=== PATIENT | female | born 1995 | race Caucasian/White ===

== ENCOUNTER → 2017-03-16 | Outpatient (CLI) | payer OTHER ==
--- NOTE | 2017-03-16 09:14 | US ---
EXAMINATION TYPE: US OB >= 14 wk fetus DATE OF EXAM: 03/16/2017 COMPARISON: None CLINICAL HISTORY: Z34.8 encounter for super of pt smokes fetus abd measures wnl, but starting to fall off TECHNIQUE: Transabdominal (TA) GESTATIONAL AGE / DATING Physician Established: (34 weeks/3 days) EDC: 04/24/2017 Dates by LMP: (34 weeks/3 days) EDC: 04/24/2017 Dates by First Scan: No previous this is first scan Dates by Current Scan: (33 weeks/2 days) EDC: 05/02/2017 SURVEY IUP: Single PLACENTA: Posterior PREVIA: Low Lying LAZARO: 16 cm Normal CERVICAL LENGTH (transabdominal: norm > 3.0cm): 4.8 cm BIOMETRY PRESENTATION: Vertex LIE: Longitudinal BPD: 8.5 cm 34 weeks / 2 days HC: 30.6 cm 34 weeks / 0 days AC: 28.9 cm 33 weeks / 0 days FL: 6.4 cm 33 weeks / 2 days ESTIMATED WEIGHT IN GRAMS: 2157 grams ESTIMATED WEIGHT IN LBS/OZS: 4 lbs. 12 oz. WEIGHT PERCENTAGE BASED ON ESTABLISHED DATES: 16% HC/AC: 1.1 Normal FL/AC: 22.3 Normal HEART RATE: 138 bpm RHYTHM: Normal survey was limited. IMPRESSION: Single viable intrauterine corresponding to ultrasound age 33 weeks 2 days with estimated d ate of delivery 05/02/2017. Limited survey.
== END | disposition home or self-care (01) ==
LOC: RADUSWWP 08:23
PROVIDERS: ATTEND Obstetrics & Gynecology
DX: Z34.80 Encounter for supervision of other normal pregnancy, unspecified trimester (principal); Z3A.33 33 weeks gestation of pregnancy
CPT/HCPCS: 76805

== ENCOUNTER → 2018-04-19 | Outpatient (CLI) | payer OTHER ==
--- NOTE | 2018-04-30 08:12 | HM ---
HOLTER MONITOR REPORT 24-hour Holter monitor shows sinus mechanism, heart rate ranging from 55 to 135 beats per minute, average 88 beats per minute. No bradycardia. No pauses. No significant arrhythmias. IMPRESSION: Normal 24 Holter monitor recording. MMBYRON / GASPERN: [id number] /
== END | disposition home or self-care (01) ==
LOC: RADECHMAIN 11:55
PROVIDERS: ATTEND Family Medicine
DX: R00.2 Palpitations (principal)
CPT/HCPCS: 93225; 93226

== ENCOUNTER → 2018-04-27 | Outpatient (CLI) | payer OTHER ==
--- NOTE | 2018-04-28 10:33 | ECHOF ---
Referral Reason:R00.2 Palpitations MEASUREMENTS -------- HEIGHT: 170.2 cm WEIGHT: 49.9 kg BP: RVIDd: 1.6 cm (< 3.3) IVSd: 0.7 cm (0.6 - 1.1) LVIDd: 4.4 cm (3.9 - 5.3) LVPWd: 0.6 cm (0.6 - 1.1) IVSs: 0.8 cm LVIDs: 2.9 cm LVPWs: 1.3 cm Ao Diam: 2.8 cm (2.0 - 3.7) AV Cusp: 1.6 cm (1.5 - 2.6) LA Diam: 2.7 cm (2.7 - 3.8) EPSS: 0.5 cm MV E Eddie: 0.92 m/s MV DecT: 214 ms MV A Eddie: 0.72 m/s MV E/A Ratio: 1.29 RAP: 5.00 mmHg RVSP: 19.73 mmHg MV EF SLOPE: 102.78 mm/s (70 - 150) MV EXCURSION: 1.61 cm (> 18.000) FINDINGS -------- Sinus rhythm. This was a technically good study. The left ventricular size is normal. Left ventricular wall thickness is normal. Overall left vent ricular systolic function is low-normal with, an EF between 50 - 55 %. The right ventricle is normal in size and function. The left atrium is normal in size. The right atrium is normal in size. The aortic valve is trileaflet, and appears structurally normal. No aortic stenosis or regurgitation. Mild mitral regurgitation is present. Trace tricuspid regurgitation present. The right ventricular systolic pressure, as measured by Dopp ler, is 19.73mmHg. Pulmonic valve appears structurally normal. The aortic root size is normal. Normal inferior vena cava with normal inspiratory collapse consistent with estimated right atrial pre ssure of 5 mmHg. The pericardium is normal. CONCLUSIONS -------- 1. Sinus rhythm. 2. This was a technically good study. 3. The left ventricular size is normal. 4. Left ventricular wall thickness is normal. 5. Overall left ventricular systolic function is low-normal with, an EF between 50 - 55 %. 6. The right ventricle is normal in size and function. 7. The left atrium is normal in size. 8. The right atrium is normal in size. 9. The aortic valve is trileaflet, and appears structurally normal. No aortic stenosis or regurgitati on. 10. Mild mitral regurgitation is present. 11. Trace tricuspid regurgitation present. 12. The right ventricular systolic pressure, as measured by Doppler, is 19.73mmHg. 13. Pulmonic valve appears structurally normal. 14. The aortic root size is normal. 15. Normal inferior vena cava with normal inspiratory collapse consistent with estimated right atrial pressure of 5 mmHg. 16. The pericardium is normal. COMMUNITY CASE MANAGER: Briana Vásquez RDCS
== END | disposition home or self-care (01) ==
LOC: RADECHMAIN 13:09
PROVIDERS: ATTEND Family Medicine
DX: I34.0 Nonrheumatic mitral (valve) insufficiency (principal)
CPT/HCPCS: 93306

== ENCOUNTER 2018-06-07 14:15 | Emergency (ER) | payer OTHER ==
[2018-06-07 16:38] VITALS: TEMP 98.7
--- NOTE | 2018-06-07 17:37 | ED ---
General Adult HPI - General Chief complaint: Upper Respiratory Infection Stated complaint: Lungs hurt, DARION, coughing Source: patient, RN notes reviewed, old records reviewed Mode of arrival: ambulatory Limitations: no limitations - History of Present Illness Initial comments: 23-year-old female patient presents to ED with 5 day history of cough, congestion. Patient states that she gets bronchitis, or pneumonia "pretty much every year". Patient states that the cough is nonproductive. Patient has additional complaint of mild fever/chills, mild nausea without emesis, myalgias. Patient denies abdominal pain. Patient states that her lateral ribs hurt when she coughs. Patient denies shortness of breath, pleuritic chest pain , chest pain. Patient denies OCP use, previous history of blood clots, recent travel. Patient denies syncope or presyncope, dysuria, any other symptoms. Pt uses Iud for contraception. Systemic: Pt denies fatigue, rash. Pt denies weakness, night sweats, weight loss. Neuro: Pt denies headache, visual disturbances, syncope or pre-syncope. HEENT: Pt denies ocular discharge or irritation, otalgia, rhinorrhea, pharyngitis or notable lymphadenopathy. Cardiopulmonary: Pt denies chest pain, SOB, heart palpitations, dyspnea on exertion. Abdominal/GI: Pt denies abdominal pain, v/d. : Pt denies dysuria, burning w/ urination, frequency/urgency. Denies new onset urinary or bowel incontinence. MSK: Pt denies myalgia, loss of strength or function in extremities. - Related Data Previous Rx's Medication Instructions Recorded Acetaminophen-Codeine 300-30mg 1 tab PO Q6H PRN #12 tablet 05/30/16 [Tylenol #3] Albuterol Inhaler [Ventolin Hfa 1 - 2 puff INHALATION Q6HR PRN #1 05/30/16 Inhaler] inhaler Levofloxacin [Levaquin] 750 mg PO DAILY #5 tab 05/30/16 Albuterol Inhaler [Ventolin Hfa 1 - 2 puff INHALATION Q6H PRN 5 06/07/18 Inhaler] Days #1 inhaler methylPREDNISolone Dose Pack 4 mg PO DIRECTED #21 package 06/07/18 [Medrol Dose Pack] Allergies Allergy/AdvReac Type Severity Reaction Status Date / Time No Known Allergies Allergy Verified 05/30/16 22:42 Review of Systems ROS Statement: Those systems with pertinent positive or pertinent negative responses have been documented in the HPI. ROS Other: All systems not noted in ROS Statement are negative. Past Medical History Past Medical History: No Reported History, Thyroid Disorder Additional Past Medical History / Comment(s): ADHD. Patient had an upper endoscopy for a piece of stuck steak. Past obstetrical history: She has had 5 spontaneous vaginal deliveries 7 lbs. 0 oz. and 7 lbs. 4 oz. and she has had 2 spontaneous miscarriages, History of Any Multi-Drug Resistant Organisms: None Reported Past Surgical History: Orthopedic Surgery, Tonsillectomy Past Anesthesia/Blood Transfusion Reactions: No Reported Reaction Past Psychological History: Anxiety, Depression Smoking Status: Current every day smoker Past Alcohol Use History: Rare Past Drug Use History: Marijuana - Past Family History Mother Family Medical History: No Reported History General Exam - General Exam Comments Initial Comments: Constitutional: NAD, AOX3, Pt has pleasant affect. HEENT: NC/AT, trachea midline, neck supple, no lymphadenopathy. Posterior pharynx non erythematous, without exudates. External ears appear normal, without discharge. Mucous membranes moist. Eyes PERRLA, EOM intact. There is no scleral icterus. No pallor noted. Cardiopulmonary: RRR, no murmurs, rubs or gallops, no JVD noted. Lungs mild wheezing noted in posterior lower field, all other lung perkins clear anteriorly and posteriorly. No peripheral edema. Abdominal exam: Abdomen soft and non-distended. Abdomen non-tender to palpation in all 4 quadrants. Bowel sounds active in LLQ. No hepatosplenomegaly. Neuro: CN II-XII grossly intact. MSK: Bilateral lateral rib pain is reproducible upon palpation, pt states that this is the pain she was experiencing. Limitations: no limitations Course Vital Signs 06/07/18 06/07/18 06/07/18 15:00 16:37 18:52 Temperature 98.4 F 98.7 F Pulse Rate 90 78 74 Respiratory 18 16 18 Rate Blood Pressure 104/71 112/71 106/57 O2 Sat by Pulse 95 97 99 Oximetry Medical Decision Making - Medical Decision Making 23-year-old female patient with past history of bronchitis presents to ED with 5 days of cough, congestion. Physical exam revealed mild wheezing and posterior perkins, no other pathologic findings. Chest x-ray did not display any acute process. Patient to be diagnosed with viral bronchitis. Patient to be given Medrol Dosepak and albuterol inhaler to use as needed. Patient given strict return parameters including, shortness of breath, difficulty breathing, chest pain, worsening cough, pleuritic chest pain, any other new symptoms. Patient to follow with PCP in 1-2 days. Case discussed with Dr. Ba. Disposition Clinical Impression: Viral bronchitis Disposition: HOME SELF-CARE Condition: Good Instructions: Acute Bronchitis (ED) Additional Instructions: Patient to adhere to previously discussed treatment plan and will take medication(s) as directed. Patient to follow up with PCP in 1-2 days. Patient to return to ED if symptoms do not improve. Prescriptions: Albuterol Inhaler [Ventolin Hfa Inhaler] 1 - 2 puff INHALATION Q6H PRN 5 Days # 1 inhaler PRN Reason: Bronchodilation methylPREDNISolone Dose Pack [Medrol Dose Pack] 4 mg PO DIRECTED #21 package Is patient prescribed a controlled substance at d/c from ED?: No Referrals: Chad Leonard MD [Primary Care Provider] - 1-2 days Time of Disposition: 19:23
[2018-06-07] MEDS ORDERED: BENZONATATE 100 MG CAP PO STA (18:24)
--- NOTE | 2018-06-07 18:27 | XR ---
EXAMINATION: XR chest 2V DATE AND TIME: 06/07/2018 5:03 PM CLINICAL INDICATION: Pain TECHNIQUE: PA and lateral COMPARISON: 05/30/2016 FINDINGS: The lungs are clear. The pleural spaces are negative. The cardiac silhouette is not enlarged. The remainder of the mediastinal silhouette is unremarkable. The skeletal structures and soft tissues are negative for acute findings. IMPRESSION: NO ACUTE PROCESS.
[2018-06-07 18:53] VITALS: BP 106/57; PULSE 74; RESP 18
--- NOTE | 2018-06-07 20:18 | ED ---
Medical Decision Making - Medical Decision Making no posterior calf tenderness. homans sign negative bilaterally. Disposition Clinical Impression: Viral bronchitis Disposition: HOME SELF-CARE Condition: Good Instructions: Acute Bronchitis (ED) Additional Instructions: Patient to adhere to previously discussed treatment plan and will take medication(s) as directed. Patient to follow up with PCP in 1-2 days. Patient to return to ED if symptoms do not improve. Prescriptions: Albuterol Inhaler [Ventolin Hfa Inhaler] 1 - 2 puff INHALATION Q6H PRN 5 Days # 1 inhaler PRN Reason: Bronchodilation methylPREDNISolone Dose Pack [Medrol Dose Pack] 4 mg PO DIRECTED #21 package Is patient prescribed a controlled substance at d/c from ED?: No Referrals: Chad Leonard MD [Primary Care Provider] - 1-2 days
== END 2018-06-07 19:36 | disposition home or self-care (01) ==
LOC: EC 14:15
DX: J20.8 Acute bronchitis due to other specified organisms (principal); F17.200 Nicotine dependence, unspecified, uncomplicated; Z90.89 Acquired absence of other organs; Z97.5 Presence of (intrauterine) contraceptive device
CPT/HCPCS: 71046; 99285

== ENCOUNTER 2018-11-01 00:27 | Emergency (ER) | payer OTHER ==
[2018-11-01 00:35] VITALS: TEMP 97.6
[2018-11-01] MEDS ORDERED: KETOROLAC 30 MG/ML 1 ML VIAL IVP STA (00:56)
[2018-11-01] MEDS ORDERED: SODIUM CHLORIDE 0.9% 1,000 ML IV STA (00:56)
[2018-11-01] MEDS ORDERED: ONDANSETRON 4 MG/2 ML VIAL IVP STA (00:56)
[2018-11-01 01:19] LABS: Basophils # (A) 0.1 k/uL (0-0.2); Basophils % (A) 0 %; Eosinophils # (A) 0.7 k/uL (0-0.7); Eosinophils % (A) 6 %; HGB 13.3 gm/dL (11.4-16.0); Lymphocytes # (A) 3.3 k/uL (1.0-4.8); Lymphocytes % (A) 30 %; MCH 31.1 pg (25.0-35.0); MCV 91.6 fL (80.0-100.0); Mean Platelet Volume 7.2; Monocytes # (A) 0.5 k/uL (0-1.0); Monocytes % (A) 4 %; Neutrophils # (A) 6.4 k/uL (1.3-7.7); Neutrophils % (A) 58 %; Platelet Count 256 k/uL (150-450); RBC 4.26 m/uL (3.80-5.40); RDW 12.5 % (11.5-15.5); WBC 11.1 k/uL (3.8-10.6)
[2018-11-01 01:23] LABS: Appearance,Urine Clear (Clear); Bacteria,Urine Rare /hpf; Bilirubin,Urine Negative (Negative); Blood,Urine Small (Negative); Color,Urine Yellow; Glucose,Urine (UA) Negative (Negative); Hyaline Casts,Urine 4 /lpf (0-2); Ketones,Urine Negative (Negative); Leukocyte Esterase,Urine Negative (Negative); Mucus,Urine Many /hpf; Nitrite,Urine Negative (Negative); PH, Urine 5.5 (5.0-8.0); Protein,Urine Trace (Negative); RBC,Urine 1 /hpf (0-5); Specific Gravity,Urine 1.036 (1.001-1.035); Squamous Epithelial Cell,Urine 3 /hpf (0-4); WBC,Urine 1 /hpf (0-5)
[2018-11-01 01:30] LABS: ALT 20 U/L (9-52); AST 11 U/L (14-36); Albumin 4.3 g/dL (3.5-5.0); Alkaline Phosphatase 54 U/L (38-126); Amylase 30 U/L (30-110); Anion Gap 8 mmol/L; Blood Urea Nitrogen 12 mg/dL (7-17); Calcium 9.4 mg/dL (8.4-10.2); Carbon Dioxide 24 mmol/L (22-30); Chloride 107 mmol/L (98-107); Glucose 119 mg/dL (74-99); Lipase 47 U/L (23-300); Sodium 139 mmol/L (137-145); Total Protein 6.8 g/dL (6.3-8.2)
--- NOTE | 2018-11-01 01:42 | ED ---
Back Pain HPI - General Chief Complaint: Back Pain/Injury Stated Complaint: Back Pain Source: patient Limitations: no limitations - History of Present Illness Initial Comments: 23-year-old female patient presents to the emergency department today for evaluation of left low back pain. Patient states the pain does radiate through to her abdomen. Patient states the pain has been going on for the last 2-3 days however did worsen today. She describes the pain is intense aching type pain that feels similar to "back labor". Patient states that she has had an IUD for the last year. States for the last 4 months she has been having almost daily bleeding that ranges from light spotting to normal period type bleeding. Patient denies any hematuria, dysuria, urinary frequency, urinary urgency. She denies any abnormal vaginal discharge other than the bleeding. She denies fevers or chills with this. Denies any injury to her back. Denies any radiation of the pain down her legs. Denies any numbness, tingling, or saddle anesthesia. Denies any loss of bowel or bladder control. Denies any history of similar symptoms. Patient denies any recent rash, shortness breath, chest pain, nausea, vomiting, diarrhea, constipation, dizziness, weakness, headache, visual changes, or any other complaints. - Related Data Previous Rx's Medication Instructions Recorded Acetaminophen-Codeine 300-30mg 1 tab PO Q6H PRN #12 tablet 05/30/16 [Tylenol #3] Albuterol Inhaler [Ventolin Hfa 1 - 2 puff INHALATION Q6HR PRN #1 05/30/16 Inhaler] inhaler Levofloxacin [Levaquin] 750 mg PO DAILY #5 tab 05/30/16 Albuterol Inhaler [Ventolin Hfa 1 - 2 puff INHALATION Q6H PRN 5 06/07/18 Inhaler] Days #1 inhaler methylPREDNISolone Dose Pack 4 mg PO DIRECTED #21 package 06/07/18 [Medrol Dose Pack] Allergies Allergy/AdvReac Type Severity Reaction Status Date / Time No Known Allergies Allergy Verified 11/01/18 00:35 Review of Systems ROS Statement: Those systems with pertinent positive or pertinent negative responses have been documented in the HPI. ROS Other: All systems not noted in ROS Statement are negative. Past Medical History Past Medical History: No Reported History Additional Past Medical History / Comment(s): ADHD. Patient had an upper endoscopy for a piece of stuck steak. Past obstetrical history: She has had 5 spontaneous vaginal deliveries 7 lbs. 0 oz. and 7 lbs. 4 oz. and she has had 2 spontaneous miscarriages, History of Any Multi-Drug Resistant Organisms: None Reported Past Surgical History: Orthopedic Surgery, Tonsillectomy Additional Past Surgical History / Comment(s): right knee surgery Past Anesthesia/Blood Transfusion Reactions: No Reported Reaction Past Psychological History: ADD/ADHD, Anxiety, Depression Smoking Status: Current every day smoker Past Alcohol Use History: Rare Past Drug Use History: Marijuana - Past Family History Mother Family Medical History: No Reported History General Exam Limitations: no limitations General appearance: alert, in no apparent distress, other (Physical well- developed, well-nourished adult female patient in no acute distress. Vital signs upon presentation are temperature 97.6F, pulse 77, respirations 18, blood pressure 103/58, pulse ox 98% on room air.) Eye exam: Present: normal appearance, PERRL, EOMI. Absent: scleral icterus, conjunctival injection, periorbital swelling ENT exam: Present: normal exam, normal oropharynx, mucous membranes moist Respiratory exam: Present: normal lung sounds bilaterally. Absent: respiratory distress, wheezes, rales, rhonchi, stridor Cardiovascular Exam: Present: regular rate, normal rhythm, normal heart sounds. Absent: systolic murmur, diastolic murmur, rubs, gallop, clicks GI/Abdominal exam: Present: soft, tenderness (LLQ tenderness), normal bowel sounds. Absent: distended, guarding, rebound, rigid Back exam: Present: normal inspection, CVA tenderness (L). Absent: CVA tenderness (R) Neurological exam: Present: alert, oriented X3, CN II-XII intact Psychiatric exam: Present: normal affect, normal mood Skin exam: Present: warm, dry, intact, normal color. Absent: rash Course Vital Signs 11/01/18 00:30 Temperature 97.6 F Pulse Rate 77 Respiratory 18 Rate Blood Pressure 103/58 O2 Sat by Pulse 98 Oximetry Medical Decision Making - Medical Decision Making 23-year-old female patient presents to the emergency department today for evaluation of left flank pain. Physical examination did reveal left CVA tenderness. Abdomen did reveal some mild left lower quadrant tenderness. Labs reviewed and are relatively unremarkable. Urinalysis showed no evidence for infection. Patient symptoms seem consistent with kidney stones we did perform a CT of the abdomen and pelvis without contrast. There was a punctate nonobstructive stone in the left kidney. No other abnormalities. Upon r eevaluation patient states she is feeling better. We did discuss possibility of a recently passed stone. She is instructed to follow-up with her primary care physician for recheck in 1-2 days. She is instructed to follow-up with her [facility] [employer] [facility] for recheck as soon as possible. Return parameters discussed in detail. She verbalizes understanding and agrees with this plan. - Lab Data Result diagrams: 11/01/18 01:05 11/01/18 01:05 Lab Results 11/01/18 11/01/18 11/01/18 Range/Units 01:05 01:05 01:05 WBC (3.8-10.6) k/uL RBC (3.80-5.40) m/uL Hgb (11.4-16.0) gm/dL Hct (34.0-46.0) % MCV (80.0-100.0) fL MCH (25.0-35.0) pg MCHC (31.0-37.0) g/dL RDW (11.5-15.5) % Plt Count (150-450) k/uL Neutrophils % % Lymphocytes % % Monocytes % % Eosinophils % % Basophils % % Neutrophils # (1.3-7.7) k/uL Lymphocytes # (1.0-4.8) k/uL Monocytes # (0-1.0) k/uL Eosinophils # (0-0.7) k/uL Basophils # (0-0.2) k/uL Sodium 139 (137-145) mmol/L Potassium 4.0 (3.5-5.1) mmol/L Chloride 107 (98-107) mmol/L Carbon Dioxide 24 (22-30) mmol/L Anion Gap 8 mmol/L BUN 12 (7-17) mg/dL Creatinine 0.59 (0.52-1.04) mg/dL Est GFR (CKD-EPI)AfAm >90 (>60 ml/min/1.73 sqM) Est GFR (CKD-EPI)NonAf >90 (>60 ml/min/1.73 sqM) Glucose 119 H (74-99) mg/dL Calcium 9.4 (8.4-10.2) mg/dL Total Bilirubin 1.0 (0.2-1.3) mg/dL AST 11 L (14-36) U/L ALT 20 (9-52) U/L Alkaline Phosphatase 54 (38-126) U/L Total Protein 6.8 (6.3-8.2) g/dL Albumin 4.3 (3.5-5.0) g/dL Amylase 30 (30-110) U/L Lipase 47 (23-300) U/L Urine Color Yellow Urine Appearance Clear (Clear) Urine pH 5.5 (5.0-8.0) Ur Specific Eleele 1.036 H (1.001-1.035) Urine Protein Trace H (Negative) Urine Glucose (UA) Negative (Negative) Urine Ketones Negative (Negative) Urine Blood Small H (Negative) Urine Nitrite Negative (Negative) Urine Bilirubin Negative (Negative) Urine Urobilinogen 3.0 (<2.0) mg/dL Ur Leukocyte Esterase Negative (Negative) Urine RBC 1 (0-5) /hpf Urine WBC 1 (0-5) /hpf Ur Squamous Epith Cells 3 (0-4) /hpf Urine Bacteria Rare H (None) /hpf Hyaline Casts 4 H (0-2) /lpf Urine Mucus Many H (None) /hpf Urine HCG, Qual Not Detected (Not Detectd) 11/01/18 Range/Units 01:05 WBC 11.1 H (3.8-10.6) k/uL RBC 4.26 (3.80-5.40) m/uL Hgb 13.3 (11.4-16.0) gm/dL Hct 39.0 (34.0-46.0) % MCV 91.6 (80.0-100.0) fL MCH 31.1 (25.0-35.0) pg MCHC 34.0 (31.0-37.0) g/dL RDW 12.5 (11.5-15.5) % Plt Count 256 (150-450) k/uL Neutrophils % 58 % Lymphocytes % 30 % Monocytes % 4 % Eosinophils % 6 % Basophils % 0 % Neutrophils # 6.4 (1.3-7.7) k/uL Lymphocytes # 3.3 (1.0-4.8) k/uL Monocytes # 0.5 (0-1.0) k/uL Eosinophils # 0.7 (0-0.7) k/uL Basophils # 0.1 (0-0.2) k/uL Sodium (137-145) mmol/L Potassium (3.5-5.1) mmol/L Chloride (98-107) mmol/L Carbon Dioxide (22-30) mmol/L Anion Gap mmol/L BUN (7-17) mg/dL Creatinine (0.52-1.04) mg/dL Est GFR (CKD-EPI)AfAm (>60 ml/min/1.73 sqM) Est GFR (CKD-EPI)NonAf (>60 ml/min/1.73 sqM) Glucose (74-99) mg/dL Calcium (8.4-10.2) mg/dL Total Bilirubin (0.2-1.3) mg/dL AST (14-36) U/L ALT (9-52) U/L Alkaline Phosphatase (38-126) U/L Total Protein (6.3-8.2) g/dL Albumin (3.5-5.0) g/dL Amylase (30-110) U/L Lipase (23-300) U/L Urine Color Urine Appearance (Clear) Urine pH (5.0-8.0) Ur Specific Ele[place] (1.001-1.035) Urine Protein (Negative) Urine Glucose (UA) (Negative) Urine Ketones (Negative) Urine Blood (Negative) Urine Nitrite (Negative) Urine Bilirubin (Negative) Urine Urobilinogen (<2.0) mg/dL Ur Leukocyte Esterase (Negative) Urine RBC (0-5) /hpf Urine WBC (0-5) /hpf Ur Squamous Epith Cells (0-4) /hpf Urine Bacteria (None) /hpf Hyaline Casts (0-2) /lpf Urine Mucus (None) /hpf Urine HCG, Qual (Not Detectd) - Radiology Data Radiology results: report reviewed, image reviewed CT of the abdomen and pelvis without contrast was obtained. Report was reviewed in its entirety. Impression by Dr. Jenkins shows punctate nonobstructive stone in the left kidney. No hydronephrosis. Hepatomegaly. IUD is in place Disposition Clinical Impression: Left flank pain Disposition: HOME SELF-CARE Condition: Good Instructions (If sedation given, give patient instructions): Flank Pain (ED) Additional Instructions: Take medications as directed. Follow-up with your primary care physician for recheck as soon as possible. Return to the emergency department immediately for any new, worsening, or concerning symptoms. Is patient prescribed a controlled substance at d/c from ED?: No Referrals: None,Stated [Primary Care Provider] - 1-2 days Time of Disposition: 02:20
--- NOTE | 2018-11-01 02:01 | CT ---
EXAM: CT Abdomen and Pelvis Without Intravenous Contrast CLINICAL HISTORY: ITS.REASON CT Reason: Pain TECHNIQUE: Axial computed tomography images of the abdomen and pelvis without intravenous contrast. CTDI is 5 mGy and DLP is 282 mGy-cm. This CT exam was performed using one or more of the following dose reduction techniques: automated exposure control, adjustment of the mA and/or kV according to patient size, and/or use of iterative reconstruction technique. COMPARISON: No relevant prior studies available. FINDINGS: Lung bases: No mass. No consolidation. ABDOMEN: Liver: Enlarged. Gallbladder and bile ducts: Unremarkable. Pancreas: No ductal dilation. Spleen: Unremarkable. Adrenals: Unremarkable. Kidneys and ureters: Punctate nonobstructive stone in the left kidney. No obstructing stones. No hydronephrosis. Stomach and bowel: No bowel obstruction or bowel wall thickening. PELVIS: Appendix: No evidence of appendicitis. Bladder: No stones. Reproductive: IUD is in place. ABDOMEN and PELVIS: Intraperitoneal space: Unremarkable. Bones/joints: No acute fractures. Soft tissues: Unremarkable. Vasculature: No abdominal aortic aneurysm. Lymph nodes: No enlarged lymph nodes. IMPRESSION: 1. Punctate nonobstructive stone in the left kidney. No hydronephrosis. 2. Hepatomegaly.
[2018-11-01] MEDS ORDERED: IBUPROFEN 600 MG STARTER PACK 4 TAB BTL PO STA (02:19)
[2018-11-01 02:42] VITALS: BP 105/59; PULSE 80; RESP 16
== END 2018-11-01 02:41 | disposition home or self-care (01) ==
LOC: EC 00:27
DX: R10.32 Left lower quadrant pain (principal); M54.5 Low back pain; N93.9 Abnormal uterine and vaginal bleeding, unspecified; F17.200 Nicotine dependence, unspecified, uncomplicated; Z32.02 Encounter for pregnancy test, result negative; Z97.5 Presence of (intrauterine) contraceptive device; Z98.890 Other specified postprocedural states
CPT/HCPCS: 36415; 80053; 82150; 83690; 85025; 81001; 81025; 74176; 99284; 96374; 96375; 96361; J2405; J1885

== ENCOUNTER 2020-08-05 11:54 | Emergency (ER) | payer OTHER, BC ==
[2020-08-05 12:44] VITALS: BP 123/71; PULSE 98; RESP 18; TEMP 98.4
--- NOTE | 2020-08-05 13:14 | ED ---
General Adult HPI - General Chief complaint: Upper Respiratory Infection Stated complaint: cough,wheezing Time Seen by Provider: 08/05/20 12:55 Source: patient, RN notes reviewed Mode of arrival: ambulatory Limitations: no limitations - History of Present Illness Initial comments: Patient 25-year-old female presented to the emergency room today with chief complaint cough congestion over the last 2 weeks. She does admit that she follow with urgent care. She states she was tested for covid was negative. Patient does admit that she's was taken antibiotics and steroids which didn't feel better for a few days but symptoms have returned. Patient states still having cough congestion positive sputum production as been clear in color. Patient denies any other sick contacts at home. Patient denies any other complaints or associated symptoms.Patient denies any recent fever, chills, shortness of breath, chest pain, back pain, abdominal pain, nausea or vomiting, constipation or diarrhea, headaches or visual changes, or any other complaints. - Related Data Previous Rx's Medication Instructions Recorded Acetaminophen-Codeine 300-30mg 1 tab PO Q6H PRN #12 tablet 05/30/16 [Tylenol #3] Albuterol Inhaler (Mhu) [Ventolin 1 - 2 puff INHALATION Q6HR PRN #1 05/30/16 Hfa Inhaler (Mhu)] inhaler Levofloxacin [Levaquin] 750 mg PO DAILY #5 tab 05/30/16 Albuterol Inhaler (Mhu) [Ventolin 1 - 2 puff INHALATION Q6H PRN 5 06/07/18 Hfa Inhaler (Mhu)] Days #1 inhaler methylPREDNISolone Dose Pack 4 mg PO DIRECTED #21 package 06/07/18 [Medrol Dose Pack] Albuterol Inhaler [Ventolin Hfa 2 puff INHALATION RT-QID 7 Days #1 08/05/20 Inhaler] puff methylPREDNISolone Dose Pack 4 mg PO DIRECTED #21 package 08/05/20 [Medrol Dose Pack] Allergies Allergy/AdvReac Type Severity Reaction Status Date / Time No Known Allergies Allergy Verified 08/05/20 12:44 Review of Systems ROS Statement: Those systems with pertinent positive or pertinent negative responses have been documented in the HPI. ROS Other: All systems not noted in ROS Statement are negative. Past Medical History Past Medical History: No Reported History Additional Past Medical History / Comment(s): ADHD. Patient had an upper endoscopy for a piece of stuck steak. Past obstetrical history: She has had 5 spontaneous vaginal deliveries 7 lbs. 0 oz. and 7 lbs. 4 oz. and she has had 2 spontaneous miscarriages, History of Any Multi-Drug Resistant Organisms: None Reported Past Surgical History: Orthopedic Surgery, Tonsillectomy Additional Past Surgical History / Comment(s): right knee surgery Past Anesthesia/Blood Transfusion Reactions: No Reported Reaction Past Psychological History: ADD/ADHD, Anxiety, Depression Smoking Status: Current every day smoker Past Alcohol Use History: Rare Past Drug Use History: Marijuana - Past Family History Mother Family Medical History: No Reported History General Exam - General Exam Comments Initial Comments: General: The patient is awake and alert, in no distress, and does not appear acutely ill. Eye: extra-ocular movements are intact. No nystagmus. There is normal conjunctiva bilaterally. Ears, nose, mouth and throat: There are moist mucous membranes and no oral lesions. Neck: The neck is supple, there is no tenderness or JVD. Cardiovascular: There is a regular rate and rhythm. No murmur, rub or gallop is appreciated. Respiratory: Lungs are clear to auscultation, respirations are non-labored, breath sounds are equal. No wheezes, stridor, rales, or rhonchi. Musculoskeletal: Normal ROM, no tenderness. Strength 5/5. Sensation intact. Neurological: A&O x 3. CN II-XII intact, There are no obvious motor or sensory deficits. Coordination appears grossly intact. Speech is normal. Skin: Skin is warm and dry and no rashes or lesions are noted. Psychiatric: Cooperative, appropriate mood & affect, normal judgment. Limitations: no limitations Course Vital Signs 08/05/20 12:41 Temperature 98.4 F Pulse Rate 98 Respiratory 18 Rate Blood Pressure 123/71 O2 Sat by Pulse 96 Oximetry Medical Decision Making - Medical Decision Making Patient reexamined she is resting comfortably. Patient's chest x-ray reviewed shows no sign of pneumonia. Patient does admit to sputum production with her cough congestion. Will be started on steroid also given inhaler. Advised to follow-up family doctor return here to emergency room if any symptoms increase worsen or for new concerns. Disposition Clinical Impression: Acute bronchitis Disposition: HOME SELF-CARE Condition: Good Instructions (If sedation given, give patient instructions): Upper Respiratory Infection (ED) Additional Instructions: Please use medication as discussed. Please follow-up with family doctor in the next 2 days of symptoms have not improved. Please return to emergency room if the symptoms increase or worsen or for any other concerns. Prescriptions: methylPREDNISolone Dose Pack [Medrol Dose Pack] 4 mg PO DIRECTED #21 package Albuterol Inhaler [Ventolin Hfa Inhaler] 2 puff INHALATION RT-QID 7 Days #1 puff Is patient prescribed a controlled substance at d/c from ED?: No Referrals: None,Stated [Primary Care Provider] - 1-2 days Time of Disposition: 14:32
--- NOTE | 2020-08-05 14:04 | XR ---
EXAMINATION TYPE: XR chest 2V DATE OF EXAM: 08/05/2020 COMPARISON: Prior chest x-ray 06/07/2018 HISTORY: Cough TECHNIQUE: Frontal and lateral views of the chest are obtained. FINDINGS: There is no focal air space opacity, pleural effusion, or pneumothorax seen. The cardiac silhouette size is within normal limits. The osseous structures are intact. There is bronchial wall thickening. IMPRESSION: Correlate for bronchitis, reactive airways disease, follow-up as indicated
== END 2020-08-05 14:57 | disposition home or self-care (01) ==
LOC: EC 11:54
DX: J20.9 Acute bronchitis, unspecified (principal); F17.200 Nicotine dependence, unspecified, uncomplicated; Z20.822 Contact with and (suspected) exposure to COVID-19
CPT/HCPCS: 71046; 99283

== ENCOUNTER 2021-11-02 08:59 | Emergency (ER) | payer BC, OTHER ==
[2021-11-02 09:03] VITALS: TEMP 97.8
[2021-11-02] MEDS ORDERED: predniSONE 20 MG TAB PO STA (11:11)
[2021-11-02] MEDS ORDERED: IPRATROPIUM-ALBUTEROL 3 ML NEB INHALATION STA (11:11)
[2021-11-02 11:23] VITALS: BP 114/81
--- NOTE | 2021-11-02 11:32 | XR ---
EXAMINATION TYPE: XR chest 2V DATE OF EXAM: 11/02/2021 11:12 AM COMPARISON: Chest radiograph 08/05/2020 TECHNIQUE: XR chest 2V Portable AP radiograph of the chest.. CLINICAL INDICATION:Female, 26 years old with history of cough; FINDINGS: Lungs/Pleura: There is no evidence of pleural effusion, focal consolidation, or pneumothorax. Pulmonary vascularity: Unremarkable. Heart/mediastinum: Cardiomediastinal silhouette is unremarkable. Musculoskeletal: No acute osseous pathology. IMPRESSION: No acute cardiopulmonary disease/process.
[2021-11-02] MEDS ORDERED: AZITHROMYCIN 500 MG TAB PO STA (11:50)
--- NOTE | 2021-11-02 11:54 | ED ---
General Adult HPI - General Chief complaint: Upper Respiratory Infection Stated complaint: cough, congestion Time Seen by Provider: 11/02/21 10:54 Source: patient, RN notes reviewed, old records reviewed Mode of arrival: ambulatory Limitations: no limitations - History of Present Illness Initial comments: Patient is a 26-year-old female presents emergency Department complaining of wheezing, cough for the last few days. States is getting worse. Was not vaccinated for COVID-19. Presents over concern for possible upper respiratory infection. States she does have a history of pneumonia as well as bronchitis. Is a smoker. Denies any history of COPD or asthma, but has been prescribed steroids and breathing inhalers previously. Denies any sick contacts. Denies any abdominal pain, nausea, vomiting. His no chest pain. His no other acute complaints at this time. Presents for further evaluation. - Related Data Previous Rx's Medication Instructions Recorded Acetaminophen-Codeine 300-30mg 1 tab PO Q6H PRN #12 tablet 05/30/16 [Tylenol #3] Albuterol Inhaler (Mhu) [Ventolin 1 - 2 puff INHALATION Q6HR PRN #1 05/30/16 Hfa Inhaler (Mhu)] inhaler Levofloxacin [Levaquin] 750 mg PO DAILY #5 tab 05/30/16 Albuterol Inhaler (Mhu) [Ventolin 1 - 2 puff INHALATION Q6H PRN 5 06/07/18 Hfa Inhaler (Mhu)] Days #1 inhaler methylPREDNISolone Dose Pack 4 mg PO DIRECTED #21 package 06/07/18 [Medrol Dose Pack] Albuterol Inhaler [Ventolin Hfa 2 puff INHALATION RT-QID 7 Days #1 08/05/20 Inhaler] puff methylPREDNISolone Dose Pack 4 mg PO DIRECTED #21 package 08/05/20 [Medrol Dose Pack] Albuterol Inhaler [Ventolin Hfa 1 puff INHALATION RT-QID #8 gm 11/02/21 Inhaler] Azithromycin 250 mg PO DAILY 4 Days #4 tab 11/02/21 predniSONE [Deltasone] 40 mg PO DAILY 5 Days #10 tab 11/02/21 Allergies Allergy/AdvReac Type Severity Reaction Status Date / Time No Known Allergies Allergy Verified 11/02/21 09:02 Review of Systems ROS Statement: Those systems with pertinent positive or pertinent negative responses have been documented in the HPI. Review of Systems: CONST: Denies fever EYES: Denies blurry vision ENT: Endorses nasal congestion C/V: Denies Chest pain RESP: Denies shortness of breath GI: Denies abdominal pain : Denies dysuria SKIN: Denies rash. MSK: Denies joint pain. NEURO: Denies headache ROS Other: All systems not noted in ROS Statement are negative. Past Medical History Past Medical History: No Reported History Additional Past Medical History / Comment(s): ADHD. Patient had an upper endoscopy for a piece of stuck steak. Past obstetrical history: She has had 5 spontaneous vaginal deliveries 7 lbs. 0 oz. and 7 lbs. 4 oz. and she has had 2 spontaneous miscarriages, History of Any Multi-Drug Resistant Organisms: None Reported Past Surgical History: Orthopedic Surgery, Tonsillectomy Additional Past Surgical History / Comment(s): right knee surgery Past Anesthesia/Blood Transfusion Reactions: No Reported Reaction Past Psychological History: ADD/ADHD, Anxiety, Depression Smoking Status: Current every day smoker Past Alcohol Use History: Rare Past Drug Use History: Marijuana - Past Family History Mother Family Medical History: No Reported History General Exam - General Exam Comments Initial Comments: General: Appears in no acute distress. HEAD: Normal with no signs of head trauma. EYES: EOMI ENT: Hearing grossly intact, normal oropharynx. Active rhinorrhea. RESPIRATORY: Mild bilateral extremely wheezing. No obvious rhonchi or rales. No increased work of breathing. No hypoxia. C/V: Regular rate and rhythm. S1 and S2 auscultated, no edema, peripheral pulses 2+ and intact throughout ABD: Abdomen is nondistended. EXT: No obvious deformity SKIN: No rashes or lesions observed on exposed skin. NEURO: Alert and oriented 4. Limitations: no limitations Course Vital Signs 11/02/21 11/02/21 11/02/21 09:00 09:09 11:22 Temperature 97.8 F Pulse Rate 107 H 81 Respiratory 18 20 20 Rate Blood Pressure 115/81 114/81 O2 Sat by Pulse 96 96 Oximetry 11/02/21 11/02/21 12:02 12:09 Temperature Pulse Rate 78 77 Respiratory 18 18 Rate Blood Pressure O2 Sat by Pulse Oximetry Medical Decision Making - Medical Decision Making Based on the patient's presentation and physical exam, I do believe that the patient is likely experiencing an acute asthma exacerbation versus COPD exacerbation addition to upper respiratory symptoms. We'll obtain viral swabs also chest x-ray. She'll be given a breathing treatment started on steroids. She'll likely be discharged home on antibiotics. She was in agreement this plan. Laboratory studies are negative for Covid, flu. Chest x-ray is negative for acute cardio pulmonary process. On reevaluation, patient's vital signs remained within normal limits and stable. Lung sounds are improved. I discussed with her the results of her imaging and laboratory studies. I do believe it is safe for her to be discharged home at this time. She'll be continued on prednisone and albuterol inhaler at home. She'll also be continued on a Z-Yandel at home. She'll receive the first dose of azithromycin here in the department. She was in agreement with this plan. I will provide the patient with a prescription for prednisone, albuterol inhaler, azithromycin,. I instructed the patient to follow up with their PCP in the next 3 days. I explained that the patient should return to the emergency department if they experience any worsening symptoms. Strict return precautions were discussed with the patient. The patient expressed understanding of these instructions. I answered all questions that the patient had. The patient was discharged home in good condition with their prescriptions and follow up information. - Lab Data Lab Results 11/02/21 11/02/21 Range/Units 11:04 11:04 Coronavirus (PCR) Not Detected (Not Detectd) Influenza Type A RNA Not Detected (Not Detectd) Influenza Type B (PCR) Not Detected (Not Detectd) Disposition Clinical Impression: Bronchitis, Asthma exacerbation Disposition: HOME SELF-CARE Condition: Good Instructions (If sedation given, give patient instructions): Asthma (ED), Upper Respiratory Infection (ED), Acute Bronchitis (ED) Prescriptions: Azithromycin 250 mg PO DAILY 4 Days #4 tab predniSONE [Deltasone] 40 mg PO DAILY 5 Days #10 tab Albuterol Inhaler [Ventolin Hfa Inhaler] 1 puff INHALATION RT-QID #8 gm Is patient prescribed a controlled substance at d/c from ED?: No Referrals: None,Stated [Primary Care Provider] - 1-2 days Juan J Galvez MD [STAFF PHYSICIAN] - 1-2 days Time of Disposition: 11:50
[2021-11-02 12:04] VITALS: RESP 18
[2021-11-02 12:10] VITALS: PULSE 77
== END 2021-11-02 12:20 | disposition home or self-care (01) ==
LOC: EC 08:59
DX: J45.901 Unspecified asthma with (acute) exacerbation (principal); F17.200 Nicotine dependence, unspecified, uncomplicated; Z20.822 Contact with and (suspected) exposure to COVID-19
CPT/HCPCS: 94640; 87502; 87635; 71046; 99284; J7512

== ENCOUNTER 2021-12-30 13:30 | Emergency (ER) | payer OTHER ==
[2021-12-30 14:05] VITALS: BP 98/67; PULSE 94; RESP 22; TEMP 98
--- NOTE | 2021-12-30 15:45 | ED ---
Skin/Abscess/FB HPI - General Chief complaint: Skin/Abscess/Foreign Body Stated complaint: Female Time Seen by Provider: 12/30/21 15:06 Source: patient Mode of arrival: ambulatory Limitations: no limitations - History of Present Illness Initial comments: Patient is a 26-year-old female who presents to the emergency department for evaluation of what she calls a vaginal blister. Patient states the blister has been present on the labia majora for a year without issue. States it was a small blister filled with blood that was nontender until today when it bursed in the shower which caused mild pain. States the area continued to bleed for the past couple hours which concerned her. She denies any concern or history of sexually transmitted infections including syphilis and herpes. States she has had the same partner for several years. Does admit to shaving pubic hair. She denies fever, chills, rash, abdominal pain, burning with urination, blood in the urine, and vaginal discharge. Patient has an appointment with her pumper gauger on 01/08 for a breast cyst. - Related Data Previous Rx's Medication Instructions Recorded Acetaminophen-Codeine 300-30mg 1 tab PO Q6H PRN #12 tablet 05/30/16 [Tylenol #3] Albuterol Inhaler [Ventolin Hfa 1 - 2 puff INHALATION Q6HR PRN #1 05/30/16 Inhaler] inhaler Levofloxacin [Levaquin] 750 mg PO DAILY #5 tab 05/30/16 Albuterol Inhaler [Ventolin Hfa 1 - 2 puff INHALATION Q6H PRN 5 06/07/18 Inhaler] Days #1 inhaler methylPREDNISolone Dose Pack 4 mg PO DIRECTED #21 package 06/07/18 [Medrol Dose Pack] Albuterol Inhaler [Ventolin Hfa 2 puff INHALATION RT-QID 7 Days #1 08/05/20 Inhaler] puff methylPREDNISolone Dose Pack 4 mg PO DIRECTED #21 package 08/05/20 [Medrol Dose Pack] Albuterol Inhaler [Ventolin Hfa 1 puff INHALATION RT-QID #8 gm 11/02/21 Inhaler] Azithromycin 250 mg PO DAILY 4 Days #4 tab 11/02/21 predniSONE [Deltasone] 40 mg PO DAILY 5 Days #10 tab 11/02/21 Cephalexin [Keflex] 250 mg PO Q6HR 5 Days #20 cap 12/30/21 Allergies Allergy/AdvReac Type Severity Reaction Status Date / Time No Known Allergies Allergy Verified 12/30/21 14:05 Review of Systems ROS Statement: Those systems with pertinent positive or pertinent negative responses have been documented in the HPI. ROS Other: All systems not noted in ROS Statement are negative. Past Medical History Past Medical History: No Reported History Additional Past Medical History / Comment(s): ADHD. Patient had an upper endoscopy for a piece of stuck steak. Past obstetrical history: She has had 5 spontaneous vaginal deliveries 7 lbs. 0 oz. and 7 lbs. 4 oz. and she has had 2 spontaneous miscarriages, History of Any Multi-Drug Resistant Organisms: None Reported Past Surgical History: Orthopedic Surgery, Tonsillectomy Additional Past Surgical History / Comment(s): right knee surgery Past Anesthesia/Blood Transfusion Reactions: No Reported Reaction Past Psychological History: ADD/ADHD, Anxiety, Depression Smoking Status: Current every day smoker Past Alcohol Use History: Rare Past Drug Use History: Marijuana - Past Family History Mother Family Medical History: No Reported History General Exam Limitations: no limitations General appearance: alert, in no apparent distress Head exam: Present: atraumatic, normocephalic, normal inspection Eye exam: Present: normal appearance, PERRL, EOMI. Absent: scleral icterus, conjunctival injection, periorbital swelling Respiratory exam: Present: normal lung sounds bilaterally. Absent: respiratory distress, wheezes, rales, rhonchi, stridor Cardiovascular Exam: Present: regular rate, normal rhythm, normal heart sounds. Absent: systolic murmur, diastolic murmur, rubs, gallop, clicks GI/Abdominal exam: Present: soft, normal bowel sounds. Absent: distended, tenderness, guarding, rebound, rigid External exam: Present: lesions (erythematous, open lesion around hair follicle without surrounding erythema, swelling, or crusting ) Back exam: Present: normal inspection Neurological exam: Present: alert, oriented X3, CN II-XII intact Psychiatric exam: Present: normal affect, normal mood Course Vital Signs 12/30/21 14:02 Temperature 98.0 F Pulse Rate 94 Respiratory 22 Rate Blood Pressure 98/67 O2 Sat by Pulse 98 Oximetry Medical Decision Making - Medical Decision Making This is a 26-year-old female who presents for evaluation of vaginal lesion. Thorough history and examination were performed. There is an erythematous, open lesion around hair follicle without surrounding erythema or swelling. This appears to be superficial folliculitis. There are no surrounding lesions or crusting to suggest herpes. I did offer patient testing and treatment for sexually transmitted infections numerous times. She declines. Patient is concerned that area will become infected due to sweating. I will send her home with Keflex and topical antibiotic. Patient will follow-up at her CLINICAL DOCUMENTATION SPECIALIST appointment scheduled on 01/08. Return parameters discussed. She verbalizes understanding and is agreeable to this plan. Dr. Dent is my attending. Disposition Clinical Impression: Labial burning Disposition: HOME SELF-CARE Condition: Good Instructions (If sedation given, give patient instructions): Folliculitis (ED) Additional Instructions: Keep area clean and dry. Try to avoid friction of the area by wearing non compressive underwear and pants until the lesion is healed. Take the antibiotic as directed to prevent infection. Follow-up with your CLINICAL DOCUMENTATION SPECIALIST as planned on 01/08. Return to the emergency department if you experience new, concerning, or worsening symptoms. Prescriptions: Cephalexin [Keflex] 250 mg PO Q6HR 5 Days #20 cap Is patient prescribed a controlled substance at d/c from ED?: No Referrals: None,Stated [Primary Care Provider] - 1-2 days Time of Disposition: 15:44
[2021-12-30] MEDS ORDERED: MUPIROCIN 2% OINT 22 GM TUBE TOPICAL SCH (16:00)
== END 2021-12-30 16:02 | disposition home or self-care (01) ==
LOC: EC 13:30
DX: N76.89 Other specified inflammation of vagina and vulva (principal); F17.200 Nicotine dependence, unspecified, uncomplicated
CPT/HCPCS: 99283

== ENCOUNTER 2022-03-25 10:23 | Emergency (ER) | payer OTHER ==
[2022-03-25 10:38] VITALS: TEMP 98.8
--- NOTE | 2022-03-25 11:55 | XR ---
EXAMINATION TYPE: XR chest 2V DATE OF EXAM: 03/25/2022 COMPARISON: 11/02/2021 TECHNIQUE: PA and lateral views submitted. HISTORY: Chest pain FINDINGS: The lungs are clear and there is no pneumothorax, pleural effusion, or focal pneumonia. Heart size normal. Hyperinflation of the lungs. Biapical pleural thickening. IMPRESSION: 1. No acute process. Correlate for COPD.
[2022-03-25] MEDS ORDERED: KETOROLAC 15 MG/ML 1 ML VIAL IM STA (11:57)
--- NOTE | 2022-03-25 12:00 | ED ---
General Adult HPI - General Chief complaint: Chest Pain Stated complaint: chest pain, SOB Time Seen by Provider: 03/25/22 11:41 Source: patient, RN notes reviewed, old records reviewed Mode of arrival: ambulatory Limitations: no limitations - History of Present Illness Initial comments: This is a well-appearing 26-year-old female who presents to the emergency room with left-sided chest pain for the past 2 days with cough and chills. She states that she has been exposed coronavirus. She denies any nausea vomiting or diarrhea. She is a pack a day smoker. -: days(s) (2) Location: chest Radiation: non-radiation Severity scale (1-10): 8 Quality: constant Consistency: constant Improves with: none Associated Symptoms: cough, fever/chills Treatments Prior to Arrival: none - Related Data Previous Rx's Medication Instructions Recorded Acetaminophen-Codeine 300-30mg 1 tab PO Q6H PRN #12 tablet 05/30/16 [Tylenol #3] Levofloxacin [Levaquin] 750 mg PO DAILY #5 tab 05/30/16 Albuterol Inhaler [Ventolin Hfa 1 - 2 puff INHALATION Q6H PRN 5 06/07/18 Inhaler] Days #1 inhaler methylPREDNISolone Dose Pack 4 mg PO DIRECTED #21 package 06/07/18 [Medrol Dose Pack] Albuterol Inhaler [Ventolin Hfa 2 puff INHALATION RT-QID 7 Days #1 08/05/20 Inhaler] puff methylPREDNISolone Dose Pack 4 mg PO DIRECTED #21 package 08/05/20 [Medrol Dose Pack] Albuterol Inhaler [Ventolin Hfa 1 puff INHALATION RT-QID #8 gm 11/02/21 Inhaler] Azithromycin 250 mg PO DAILY 4 Days #4 tab 11/02/21 Cephalexin [Keflex] 250 mg PO Q6HR 5 Days #20 cap 12/30/21 Albuterol Inhaler [Ventolin Hfa 1 - 2 puff INHALATION Q6HR PRN #1 03/25/22 Inhaler] each Azithromycin [Zithromax Z Pack] 1 tab PO DIRECTED #6 tab 03/25/22 predniSONE [Deltasone] 40 mg PO DAILY 5 Days #10 tab 03/25/22 Allergies Allergy/AdvReac Type Severity Reaction Status Date / Time No Known Allergies Allergy Verified 03/25/22 10:38 Review of Systems ROS Statement: Those systems with pertinent positive or pertinent negative responses have been documented in the HPI. ROS Other: All systems not noted in ROS Statement are negative. Past Medical History Past Medical History: No Reported History Additional Past Medical History / Comment(s): ADHD. Patient had an upper endoscopy for a piece of stuck steak. Past obstetrical history: She has had 5 spontaneous vaginal deliveries 7 lbs. 0 oz. and 7 lbs. 4 oz. and she has had 2 spontaneous miscarriages, History of Any Multi-Drug Resistant Organisms: None Reported Past Surgical History: Orthopedic Surgery, Tonsillectomy Additional Past Surgical History / Comment(s): right knee surgery Past Anesthesia/Blood Transfusion Reactions: No Reported Reaction Past Psychological History: ADD/ADHD, Anxiety, Depression Smoking Status: Current every day smoker Past Alcohol Use History: Rare Past Drug Use History: Marijuana - Past Family History Mother Family Medical History: No Reported History General Exam Limitations: no limitations General appearance: alert, in no apparent distress Head exam: Present: atraumatic Eye exam: Present: normal appearance. Absent: scleral icterus, conjunctival injection, periorbital swelling ENT exam: Present: normal exam, normal oropharynx, mucous membranes moist Neck exam: Present: normal inspection, full ROM. Absent: tenderness, meningismus Respiratory exam: Present: normal lung sounds bilaterally. Absent: respiratory distress, wheezes, rales, rhonchi, stridor, chest wall tenderness, accessory muscle use, decreased breath sounds Cardiovascular Exam: Present: regular rate GI/Abdominal exam: Present: soft. Absent: distended, tenderness, guarding, rebound, rigid, normal bowel sounds Extremities exam: Present: normal inspection, full ROM, normal capillary refill. Absent: tenderness, pedal edema Back exam: Present: normal inspection, full ROM. Absent: tenderness, CVA tenderness (R), CVA tenderness (L), rash noted Neurological exam: Present: alert, oriented X3 Psychiatric exam: Present: normal affect, normal mood Skin exam: Present: warm, dry, intact, normal color. Absent: rash, cyanosis, diaphoretic, erythema, petechiae, pallor, mottled Course Vital Signs 03/25/22 03/25/22 10:36 12:44 Temperature 98.8 F Pulse Rate 97 98 Respiratory 18 15 Rate Blood Pressure 102/65 111/76 O2 Sat by Pulse 98 96 Oximetry EKG Findings - EKG Results: EKG: sinus rhythm (Ventricular rate of 86, [place] interval 0.129, QRS 0.84, QTC 0.388) Medical Decision Making - Medical Decision Making Coronavirus is negative. Chest x-ray show evidence of developing COPD. Patient is a pack-a-day smoker. Vital signs are stable with oxygen saturations 98% on room air. Lung sounds are clear to auscultation. She was directed to decrease her smoking as this will lead to chronic respiratory problems. She will be treated for bronchitis and given a prescription for prednisone, Z-Yandel and albuterol. She was directed to return to the emergency room with any new or concerning symptoms. Case discussed with Dr. Briggs. - Lab Data Lab Results 03/25/22 Range/Units 10:40 Coronavirus (PCR) Not Detected (Not Detectd) Disposition Clinical Impression: Bronchitis Disposition: HOME SELF-CARE Condition: Good Instructions (If sedation given, give patient instructions): Chest Pain (ED), Acute Bronchitis (ED) Additional Instructions: Try to quit smoking as this will make your bronchitis worse and you are likely to develop COPD. Use your albuterol inhaler 2 puffs every 4-6 hours as needed. Take prednisone and Z-Yandel as prescribed. Return to the emergency room with any new or concerning symptoms. Prescriptions: predniSONE [Deltasone] 40 mg PO DAILY 5 Days #10 tab Albuterol Inhaler [Ventolin Hfa Inhaler] 1 - 2 puff INHALATION Q6HR PRN #1 each PRN Reason: Shortness Of Breath Azithromycin [Zithromax Z Pack] 1 tab PO DIRECTED #6 tab Is patient prescribed a controlled substance at d/c from ED?: No Referrals: None,Stated [Primary Care Provider] - 1-2 days Time of Disposition: 12:26
[2022-03-25 12:46] VITALS: BP 111/76; PULSE 98; RESP 15
== END 2022-03-25 12:46 | disposition home or self-care (01) ==
LOC: EC 10:23
DX: J40 Bronchitis, not specified as acute or chronic (principal); Z20.822 Contact with and (suspected) exposure to COVID-19; Z79.51 Long term (current) use of inhaled steroids; F17.200 Nicotine dependence, unspecified, uncomplicated
CPT/HCPCS: 96372 ×2; 99284 ×2; 93005; 87635; 71046; J1885

== ENCOUNTER 2022-03-27 09:27 | Emergency (ER) | payer OTHER ==
[2022-03-27 09:36] VITALS: RESP 18
--- NOTE | 2022-03-27 09:58 | XR ---
EXAMINATION TYPE: XR chest 2V DATE OF EXAM: 03/27/2022 COMPARISON: 03/25/2022 HISTORY: Chest pain TECHNIQUE: Frontal and lateral views of the chest are obtained. FINDINGS: There is no focal air space opacity. Stable bronchial wall thickening. Correlate for bronchitis and/o r asthma. No evidence for pneumothorax. No pleural effusion. The cardiac silhouette size is within normal limits. The osseous structures are grossly intact. IMPRESSION: 1. Stable bronchial wall thickening. Correlate for bronchitis and/or asthma.
[2022-03-27 11:03] LABS: Basophils # (A) 0.1 k/uL (0-0.2); Basophils % (A) 0 %; Eosinophils % (A) 0 %; HCT 41.4 % (34.0-46.0); HGB 13.6 gm/dL (11.4-16.0); Lymphocytes # (A) 1.7 k/uL (1.0-4.8); Lymphocytes % (A) 10 %; MCH 30.5 pg (25.0-35.0); MCHC 32.8 g/dL (31.0-37.0); Mean Platelet Volume 8.7; Monocytes # (A) 0.9 k/uL (0-1.0); Monocytes % (A) 6 %; Neutrophils # (A) 13.6 k/uL (1.3-7.7); Neutrophils % (A) 82 %; Platelet Count 220 k/uL (150-450); RBC 4.46 m/uL (3.80-5.40); RDW 11.8 % (11.5-15.5); WBC 16.5 k/uL (3.8-10.6)
[2022-03-27 11:19] LABS: ALT 11 U/L (4-34); AST 14 U/L (14-36); African American GFR (CKD) >90 (>60 ml/min/1.73 sqM); Albumin 4.3 g/dL (3.5-5.0); Alkaline Phosphatase 63 U/L (38-126); Anion Gap 10 mmol/L; Blood Urea Nitrogen 10 mg/dL (7-17); Calcium 9.1 mg/dL (8.4-10.2); Carbon Dioxide 21 mmol/L (22-30); Chloride 108 mmol/L (98-107); Glucose 99 mg/dL (74-99); Non-African American GFR(CKD) >90 (>60 ml/min/1.73 sqM); Potassium 4.1 mmol/L (3.5-5.1); Sodium 139 mmol/L (137-145); Total Bilirubin 1.2 mg/dL (0.2-1.3); Total Protein 6.6 g/dL (6.3-8.2)
[2022-03-27] MEDS ORDERED: cefTRIAXone IN SWFI 1,000 MG/10 ML SYRINGE IVP STA (12:23)
--- NOTE | 2022-03-27 12:26 | ED ---
General Adult HPI - General Chief complaint: Upper Respiratory Infection Stated complaint: Chest pressure Time Seen by Provider: 03/27/22 10:30 Source: patient, RN notes reviewed, old records reviewed Mode of arrival: ambulatory Limitations: no limitations - History of Present Illness Initial comments: Patient is a 26-year-old female with past medical history remarkable for asthma who presents emergency Department complaining of worsening productive cough as well as some chest discomfort. States it is worse with coughing. Sinus of bronchitis and seems to not be improving following antibiotics. Wants to be reevaluated. Denies any other new symptoms. Denies abdominal pain, nausea, vomiting. Denies any sweating. He describes the chest discomfort as a tightness that is worse with heavy episodes of coughing. No cardiac history. No other acute complaints at this time. No fevers, chills, sick contacts. - Related Data Home Medications Medication Instructions Recorded Confirmed Albuterol Inhaler [Ventolin Hfa 1 - 2 puff INHALATION RT-Q6H PRN 03/27/22 03/27/22 Inhaler] Azithromycin [Zithromax Z Pack] See Taper PO DIRECTED 03/27/22 03/27/22 Previous Rx's Medication Instructions Recorded predniSONE [Deltasone] 40 mg PO DAILY 5 Days #10 tab 03/25/22 Albuterol Inhaler [Ventolin Hfa 1 - 2 puff INHALATION Q6H PRN #1 03/27/22 Inhaler] unit Doxycycline Hyclate 100 mg PO BID 7 Days #14 tab 03/27/22 predniSONE [Deltasone] 40 mg PO DAILY 5 Days #105 tab 03/27/22 Allergies Allergy/AdvReac Type Severity Reaction Status Date / Time No Known Allergies Allergy Verified 03/27/22 11:23 Review of Systems ROS Statement: Those systems with pertinent positive or pertinent negative responses have been documented in the HPI. Review of Systems: CONST: Denies fever EYES: Denies blurry vision ENT: Denies nasal congestion C/V: Endorses chest discomfort RESP: Endorses cough GI: Denies abdominal pain : Denies dysuria SKIN: Denies rash. MSK: Denies joint pain. NEURO: Denies headache ROS Other: All systems not noted in ROS Statement are negative. Past Medical History Past Medical History: No Reported History Additional Past Medical History / Comment(s): ADHD. Patient had an upper endoscopy for a piece of stuck steak. Past obstetrical history: She has had 5 spontaneous vaginal deliveries 7 lbs. 0 oz. and 7 lbs. 4 oz. and she has had 2 spontaneous miscarriages, History of Any Multi-Drug Resistant Organisms: None Reported Past Surgical History: Orthopedic Surgery, Tonsillectomy Additional Past Surgical History / Comment(s): right knee surgery Past Anesthesia/Blood Transfusion Reactions: No Reported Reaction Past Psychological History: ADD/ADHD, Anxiety, Depression Smoking Status: Current every day smoker Past Alcohol Use History: Rare Past Drug Use History: Marijuana - Past Family History Mother Family Medical History: No Reported History General Exam - General Exam Comments Initial Comments: General: Appears in no acute distress. HEAD: Normal with no signs of head trauma. EYES: PERRLA, EOMI, conjunctiva normal, no discharge. ENT: Hearing grossly intact, normal oropharynx. RESPIRATORY: Bilateral end expiratory wheezing. No respiratory distress. No hypoxia. C/V: Regular rate and rhythm. S1 and S2 auscultated, no edema, peripheral pulses 2+ and intact throughout ABD: Abd is soft, nontender, nondistended EXT: Normal range of motion, no obvious deformity SKIN: No rashes or lesions observed on exposed skin. NEURO: Alert and oriented 4. Limitations: no limitations Course Vital Signs 03/27/22 03/27/22 09:33 12:39 Temperature 97.9 F 98.6 F Pulse Rate 86 76 Respiratory 18 18 Rate Blood Pressure 110/74 94/69 O2 Sat by Pulse 98 96 Oximetry Medical Decision Making - Medical Decision Making Based on the patient's presentation and physical exam, I'm concerned for was likely continue bronchitis, however cannot rule out pneumonia other cardiac process. We like to obtain basic labs, EKG, chest x-ray. She'll be treated for her asthma. She was in agreement with this plan. EKG shows no signs of acute ischemia. Chest x-ray shows bronchitis and no pneumonia. Lab studies are remarkable for an elevated leukocytosis, in the setting of his prednisone use. Troponin is undetectable. Covid is negative. Symptoms have been ongoing for multiple days. I did the patient on results of her findings. She is feeling improved. Will be discharged home and continue steroids and we will provide her with a different antibiotic, doxycycline this time. She was in agreement this plan. Discussed strict return precautions. I will provide the patient with a prescription for doxycycline, prednisone, albuterol inhaler. I instructed the patient to follow up with their PCP in the next 1-3 days. I explained that the patient should return to the emergency department if they experience any worsening symptoms. Strict return precautions were discussed with the patient. The patient expressed understanding of these instructions. I answered all questions that the patient had. The patient was discharged home in good condition with their prescriptions and follow up information. - Lab Data Result diagrams: 03/27/22 10:36 03/27/22 10:36 Lab Results 03/27/22 03/27/22 03/27/22 Range/Units 10:36 10:36 10:51 WBC 16.5 H (3.8-10.6) k/uL RBC 4.46 (3.80-5.40) m/uL Hgb 13.6 (11.4-16.0) gm/dL Hct 41.4 (34.0-46.0) % MCV 93.0 (80.0-100.0) fL MCH 30.5 (25.0-35.0) pg MCHC 32.8 (31.0-37.0) g/dL RDW 11.8 (11.5-15.5) % Plt Count 220 (150-450) k/uL MPV 8.7 Neutrophils % 82 % Lymphocytes % 10 % Monocytes % 6 % Eosinophils % 0 % Basophils % 0 % Neutrophils # 13.6 H (1.3-7.7) k/uL Lymphocytes # 1.7 (1.0-4.8) k/uL Monocytes # 0.9 (0-1.0) k/uL Eosinophils # 0.0 (0-0.7) k/uL Basophils # 0.1 (0-0.2) k/uL Sodium 139 (137-145) mmol/L Potassium 4.1 (3.5-5.1) mmol/L Chloride 108 H (98-107) mmol/L Carbon Dioxide 21 L (22-30) mmol/L Anion Gap 10 mmol/L BUN 10 (7-17) mg/dL Creatinine 0.62 (0.52-1.04) mg/dL Est GFR (CKD-EPI)AfAm >90 (>60 ml/min/1.73 sqM) Est GFR (CKD-EPI)NonAf >90 (>60 ml/min/1.73 sqM) Glucose 99 (74-99) mg/dL Calcium 9.1 (8.4-10.2) mg/dL Total Bilirubin 1.2 (0.2-1.3) mg/dL AST 14 (14-36) U/L ALT 11 (4-34) U/L Alkaline Phosphatase 63 (38-126) U/L Troponin I <0.012 (0.000-0.034) ng/mL Total Protein 6.6 (6.3-8.2) g/dL Albumin 4.3 (3.5-5.0) g/dL Coronavirus (PCR) (Not Detectd) 03/27/22 Range/Units 10:51 WBC (3.8-10.6) k/uL RBC (3.80-5.40) m/uL Hgb (11.4-16.0) gm/dL Hct (34.0-46.0) % MCV (80.0-100.0) fL MCH (25.0-35.0) pg MCHC (31.0-37.0) g/dL RDW (11.5-15.5) % Plt Count (150-450) k/uL MPV Neutrophils % % Lymphocytes % % Monocytes % % Eosinophils % % Basophils % % Neutrophils # (1.3-7.7) k/uL Lymphocytes # (1.0-4.8) k/uL Monocytes # (0-1.0) k/uL Eosinophils # (0-0.7) k/uL Basophils # (0-0.2) k/uL Sodium (137-145) mmol/L Potassium (3.5-5.1) mmol/L Chloride (98-107) mmol/L Carbon Dioxide (22-30) mmol/L Anion Gap mmol/L BUN (7-17) mg/dL Creatinine (0.52-1.04) mg/dL Est GFR (CKD-EPI)AfAm (>60 ml/min/1.73 sqM) Est GFR (CKD-EPI)NonAf (>60 ml/min/1.73 sqM) Glucose (74-99) mg/dL Calcium (8.4-10.2) mg/dL Total Bilirubin (0.2-1.3) mg/dL AST (14-36) U/L ALT (4-34) U/L Alkaline Phosphatase (38-126) U/L Troponin I (0.000-0.034) ng/mL Total Protein (6.3-8.2) g/dL Albumin (3.5-5.0) g/dL Coronavirus (PCR) Not Detected (Not Detectd) - EKG Data -: EKG Interpreted by Me EKG Comments: 12-lead Electrocardiogram Interpretation Note EKG was reviewed and interpreted by myself. 12-lead ECG performed at 1035 is interpreted by me as revealing normal sinus rhythm at a rate of 63 beats per minute. [place] is normal. MI Intervals 124 ms, QRS duration is 81 ms, QTc is 389 ms.. There were no ST or T wave abnormalities to suggest myocardial ischemia or injury. R wave progression across the precordium was satisfactory. By my interpretation this EKG is non-diagnostic for acute ischemia. Disposition Clinical Impression: Bronchitis Disposition: HOME SELF-CARE Condition: Good Instructions (If sedation given, give patient instructions): Acute Bronchitis (ED) Prescriptions: predniSONE [Deltasone] 40 mg PO DAILY 5 Days #105 tab Doxycycline Hyclate 100 mg PO BID 7 Days #14 tab Albuterol Inhaler [Ventolin Hfa Inhaler] 1 - 2 puff INHALATION Q6H PRN #1 unit PRN Reason: Dyspnea Is patient prescribed a controlled substance at d/c from ED?: No Referrals: None,Stated [Primary Care Provider] - 1-2 days Time of Disposition: 12:15
[2022-03-27 12:41] VITALS: BP 94/69; PULSE 76; TEMP 98.6
== END 2022-03-27 12:42 | disposition home or self-care (01) ==
LOC: EC 09:27
DX: J40 Bronchitis, not specified as acute or chronic (principal); F41.9 Anxiety disorder, unspecified; F32.A Depression, unspecified; F17.200 Nicotine dependence, unspecified, uncomplicated; F12.90 Cannabis use, unspecified, uncomplicated; Z79.51 Long term (current) use of inhaled steroids; Z79.899 Other long term (current) drug therapy; Z20.822 Contact with and (suspected) exposure to COVID-19
CPT/HCPCS: 36415; 93005; 80053; 84484; 85025; 87635; 71046; 99285; 96374; J0696

== ENCOUNTER 2022-04-04 14:04 | Emergency (ER) | payer BC, OTHER ==
[2022-04-04] MEDS ORDERED: SODIUM CHLORIDE 0.9% 1,000 ML IV STA (14:40)
[2022-04-04] MEDS ORDERED: KETOROLAC 15 MG/ML 1 ML VIAL IVP STA (14:43)
[2022-04-04] MEDS ORDERED: CYCLOBENZAPRINE 5 MG TAB PO STA (14:43)
[2022-04-04] MEDS ORDERED: ACETAMINOPHEN TAB 500 MG TAB PO STA (14:44)
[2022-04-04 15:25] LABS: Basophils % (A) 0 %; Eosinophils # (A) 0.1 k/uL (0-0.7); Eosinophils % (A) 1 %; HCT 40.1 % (34.0-46.0); HGB 13.6 gm/dL (11.4-16.0); Lymphocytes # (A) 0.5 k/uL (1.0-4.8); Lymphocytes % (A) 5 %; MCH 30.6 pg (25.0-35.0); MCHC 33.9 g/dL (31.0-37.0); MCV 90.4 fL (80.0-100.0); Mean Platelet Volume 8.1; Monocytes # (A) 0.6 k/uL (0-1.0); Monocytes % (A) 6 %; Neutrophils # (A) 9.3 k/uL (1.3-7.7); Neutrophils % (A) 87 %; Platelet Count 267 k/uL (150-450); RBC 4.44 m/uL (3.80-5.40); RDW 12.2 % (11.5-15.5); WBC 10.7 k/uL (3.8-10.6)
[2022-04-04 15:34] LABS: ALT 22 U/L (4-34); AST 21 U/L (14-36); African American GFR (CKD) >90 (>60 ml/min/1.73 sqM); Albumin 4.4 g/dL (3.5-5.0); Alkaline Phosphatase 52 U/L (38-126); Anion Gap 11 mmol/L; Blood Urea Nitrogen 12 mg/dL (7-17); Calcium 9.2 mg/dL (8.4-10.2); Carbon Dioxide 22 mmol/L (22-30); Chloride 102 mmol/L (98-107); Glucose 87 mg/dL (74-99); Lipase 45 U/L (23-300); Non-African American GFR(CKD) >90 (>60 ml/min/1.73 sqM); Potassium 3.9 mmol/L (3.5-5.1); Sodium 135 mmol/L (137-145); Total Bilirubin 0.7 mg/dL (0.2-1.3); Total Protein 6.7 g/dL (6.3-8.2)
[2022-04-04 15:37] LABS: Appearance,Urine Cloudy (Clear); Bacteria,Urine Rare /hpf; Bilirubin,Urine Negative (Negative); Blood,Urine Large (Negative); Color,Urine Yellow; Glucose,Urine (UA) Negative (Negative); Ketones,Urine 1+ (Negative); Leukocyte Esterase,Urine Moderate (Negative); Mucus,Urine Moderate /hpf; Nitrite,Urine Negative (Negative); PH, Urine 5.5 (5.0-8.0); Protein,Urine Trace (Negative); RBC,Urine 3 /hpf (0-5); Specific Gravity,Urine 1.028 (1.001-1.035); Squamous Epithelial Cell,Urine 18 /hpf (0-4); Urobilinogen,Urine <2.0 mg/dL (<2.0); WBC,Urine 10 /hpf (0-5)
--- NOTE | 2022-04-04 16:13 | CT ---
EXAMINATION TYPE: CT abdomen pelvis wo con DATE OF EXAM: 04/04/2022 COMPARISON: 11/01/2018 HISTORY: left flank pain, rule out kidney stone CT DLP: 271.6 mGycm Automated exposure control for dose reduction was used. Images obtained from the diaphragm to the floor the pelvis with no contrast. The lung bases are clear. No pleural effusion. Heart size is normal. No pericardial effusion. Liver s pleen stomach pancreas and gallbladder appear intact. The bile ducts are not dilated. There is no adrenal mass. Kidneys have normal size. No hydronephrosis. Ureters are not dilated. No re troperitoneal adenopathy. The bladder distends smoothly. No inguinal hernia. No pelvic mass. Uterus i s anteverted. No free fluid in the pelvis. Appendix is posterior and appears normal. There is no mese nteric edema. No ascites or free air. No sign of a bowel obstruction. The lumbar vertebrae have normal spacing and alignment. Posterior elements are intact. No compression fracture. Bony pelvis is intact. The hip joints are intact. Sacroiliac joints are intact. IMPRESSION: Negative CT scan of the abdomen and pelvis. No renal stone or obstruction. Normal appendix.
[2022-04-04 16:23] VITALS: TEMP 98.6
--- NOTE | 2022-04-04 16:55 | ED ---
Back Pain HPI - General Chief Complaint: Back Pain/Injury Stated Complaint: back pain Time Seen by Provider: 04/04/22 14:28 Source: patient Limitations: no limitations - History of Present Illness Initial Comments: Patient is a 26-year-old female who presents to the emergency department with chief complaint of back pain. Patient states she woke up this morning with the pain. Pain is in her left lower back which shoots up into her upper back. Pain is worsened with twisting of the back. Patient denies injury. Denies history of back pain. Denies pain, numbness, tingling, and weakness in the legs. Denies numbness and tingling in the groin and buttock region. Denies loss of bowel and bladder function. Reports intermittent nausea without vomiting. No nausea currently. Denies fever, chills, abdominal pain, diarrhea, burning with urination, blood in urine. Denies history of kidney stone or infection. - Related Data Home Medications Medication Instructions Recorded Confirmed Albuterol Inhaler [Ventolin Hfa 1 - 2 puff INHALATION RT-Q6H PRN 03/27/22 03/27/22 Inhaler] Azithromycin [Zithromax Z Pack] See Taper PO DIRECTED 03/27/22 03/27/22 Previous Rx's Medication Instructions Recorded predniSONE [Deltasone] 40 mg PO DAILY 5 Days #10 tab 03/25/22 Albuterol Inhaler [Ventolin Hfa 1 - 2 puff INHALATION Q6H PRN #1 03/27/22 Inhaler] unit Doxycycline Hyclate 100 mg PO BID 7 Days #14 tab 03/27/22 predniSONE [Deltasone] 40 mg PO DAILY 5 Days #105 tab 03/27/22 Cyclobenzaprine [Flexeril] 5 mg PO TID PRN #15 tablet 04/04/22 Ibuprofen [Motrin] 800 mg PO Q8HR PRN #21 tab 04/04/22 Allergies Allergy/AdvReac Type Severity Reaction Status Date / Time No Known Allergies Allergy Verified 04/04/22 14:23 Review of Systems ROS Statement: Those systems with pertinent positive or pertinent negative responses have been documented in the HPI. ROS Other: All systems not noted in ROS Statement are negative. Past Medical History Past Medical History: No Reported History Additional Past Medical History / Comment(s): ADHD. Patient had an upper endoscopy for a piece of stuck steak. Past obstetrical history: She has had 5 spontaneous vaginal deliveries 7 lbs. 0 oz. and 7 lbs. 4 oz. and she has had 2 spontaneous miscarriages, History of Any Multi-Drug Resistant Organisms: None Reported Past Surgical History: Orthopedic Surgery, Tonsillectomy Additional Past Surgical History / Comment(s): right knee surgery Past Anesthesia/Blood Transfusion Reactions: No Reported Reaction Past Psychological History: ADD/ADHD, Anxiety, Depression Smoking Status: Current every day smoker Past Alcohol Use History: Rare Past Drug Use History: Marijuana - Past Family History Mother Family Medical History: No Reported History General Exam Limitations: no limitations General appearance: alert, in no apparent distress Head exam: Present: atraumatic, normocephalic, normal inspection Eye exam: Present: normal appearance, PERRL, EOMI. Absent: scleral icterus, conjunctival injection, periorbital swelling Respiratory exam: Present: normal lung sounds bilaterally. Absent: respiratory distress, wheezes, rales, rhonchi, stridor Cardiovascular Exam: Present: regular rate, normal rhythm, normal heart sounds. Absent: systolic murmur, diastolic murmur, rubs, gallop, clicks GI/Abdominal exam: Present: soft, normal bowel sounds. Absent: distended, tenderness, guarding, rebound, rigid Back exam: Present: normal inspection, full ROM, CVA tenderness (L) (mild ), paraspinal tenderness (left lumbar). Absent: vertebral tenderness Neurological exam: Present: alert, oriented X3, CN II-XII intact Psychiatric exam: Present: normal affect, normal mood Skin exam: Present: warm, dry, intact, normal color. Absent: rash Course Vital Signs 04/04/22 04/04/22 04/04/22 14:20 16:21 17:14 Temperature 99.5 F 98.6 F Pulse Rate 108 H 100 68 Respiratory 18 20 16 Rate Blood Pressure 121/76 130/68 130/60 O2 Sat by Pulse 96 98 98 Oximetry Medical Decision Making - Medical Decision Making This is a 26-year-old female who presents with back pain. Vitals stable. There is tenderness of the left lumbar paravertebral muscles without spinous process tenderness. There is mild left CVA tenderness. Pain controlled. Laboratory studies obtained. There is minimal leukocytosis at 10.7. Urinalysis is very contaminated. CT of the abdomen and pelvis without contrast shows no renal stone or obstruction. Results discussed with patient. With kidney stone ruled out along with tenderness on physical exam this is likely musculoskeletal back pain. Patient will be discharged with symptomatic treatment for musculoskeletal back pain. She'll follow-up with her primary care provider. Dr. Maldonado is my attending. - Lab Data Result diagrams: 04/04/22 15:12 04/04/22 15:12 Lab Results 04/04/22 04/04/22 04/04/22 Range/Units 15:12 15:12 15:12 WBC 10.7 H (3.8-10.6) k/uL RBC 4.44 (3.80-5.40) m/uL Hgb 13.6 (11.4-16.0) gm/dL Hct 40.1 (34.0-46.0) % MCV 90.4 (80.0-100.0) fL MCH 30.6 (25.0-35.0) pg MCHC 33.9 (31.0-37.0) g/dL RDW 12.2 (11.5-15.5) % Plt Count 267 (150-450) k/uL MPV 8.1 Neutrophils % 87 % Lymphocytes % 5 % Monocytes % 6 % Eosinophils % 1 % Basophils % 0 % Neutrophils # 9.3 H (1.3-7.7) k/uL Lymphocytes # 0.5 L (1.0-4.8) k/uL Monocytes # 0.6 (0-1.0) k/uL Eosinophils # 0.1 (0-0.7) k/uL Basophils # 0.0 (0-0.2) k/uL Sodium 135 L (137-145) mmol/L Potassium 3.9 (3.5-5.1) mmol/L Chloride 102 (98-107) mmol/L Carbon Dioxide 22 (22-30) mmol/L Anion Gap 11 mmol/L BUN 12 (7-17) mg/dL Creatinine 0.64 (0.52-1.04) mg/dL Est GFR (CKD-EPI)AfAm >90 (>60 ml/min/1.73 sqM) Est GFR (CKD-EPI)NonAf >90 (>60 ml/min/1.73 sqM) Glucose 87 (74-99) mg/dL Calcium 9.2 (8.4-10.2) mg/dL Total Bilirubin 0.7 (0.2-1.3) mg/dL AST 21 (14-36) U/L ALT 22 (4-34) U/L Alkaline Phosphatase 52 (38-126) U/L Total Protein 6.7 (6.3-8.2) g/dL Albumin 4.4 (3.5-5.0) g/dL Lipase 45 (23-300) U/L Urine Color Yellow Urine Appearance Cloudy H (Clear) Urine pH 5.5 (5.0-8.0) Ur Specific Jbphh 1.028 (1.001-1.035) Urine Protein Trace H (Negative) Urine Glucose (UA) Negative (Negative) Urine Ketones 1+ H (Negative) Urine Blood Large H (Negative) Urine Nitrite Negative (Negative) Urine Bilirubin Negative (Negative) Urine Urobilinogen <2.0 (<2.0) mg/dL Ur Leukocyte Esterase Moderate H (Negative) Urine RBC 3 (0-5) /hpf Urine WBC 10 H (0-5) /hpf Ur Squamous Epith Cells 18 H (0-4) /hpf Urine Bacteria Rare H (None) /hpf Urine Mucus Moderate H (None) /hpf Urine HCG, Qual (Not Detectd) 04/04/22 Range/Units 15:12 WBC (3.8-10.6) k/uL RBC (3.80-5.40) m/uL Hgb (11.4-16.0) gm/dL Hct (34.0-46.0) % MCV (80.0-100.0) fL MCH (25.0-35.0) pg MCHC (31.0-37.0) g/dL RDW (11.5-15.5) % Plt Count (150-450) k/uL MPV Neutrophils % % Lymphocytes % % Monocytes % % Eosinophils % % Basophils % % Neutrophils # (1.3-7.7) k/uL Lymphocytes # (1.0-4.8) k/uL Monocytes # (0-1.0) k/uL Eosinophils # (0-0.7) k/uL Basophils # (0-0.2) k/uL Sodium (137-145) mmol/L Potassium (3.5-5.1) mmol/L Chloride (98-107) mmol/L Carbon Dioxide (22-30) mmol/L Anion Gap mmol/L BUN (7-17) mg/dL Creatinine (0.52-1.04) mg/dL Est GFR (CKD-EPI)AfAm (>60 ml/min/1.73 sqM) Est GFR (CKD-EPI)NonAf (>60 ml/min/1.73 sqM) Glucose (74-99) mg/dL Calcium (8.4-10.2) mg/dL Total Bilirubin (0.2-1.3) mg/dL AST (14-36) U/L ALT (4-34) U/L Alkaline Phosphatase (38-126) U/L Total Protein (6.3-8.2) g/dL Albumin (3.5-5.0) g/dL Lipase (23-300) U/L Urine Color Urine Appearance (Clear) Urine pH (5.0-8.0) Ur Specific Jbphh (1.001-1.035) Urine Protein (Negative) Urine Glucose (UA) (Negative) Urine Ketones (Negative) Urine Blood (Negative) Urine Nitrite (Negative) Urine Bilirubin (Negative) Urine Urobilinogen (<2.0) mg/dL Ur Leukocyte Esterase (Negative) Urine RBC (0-5) /hpf Urine WBC (0-5) /hpf Ur Squamous Epith Cells (0-4) /hpf Urine Bacteria (None) /hpf Urine Mucus (None) /hpf Urine HCG, Qual Not Detected (Not Detectd) Disposition Clinical Impression: Mechanical back pain Disposition: HOME SELF-CARE Condition: Good Instructions (If sedation given, give patient instructions): Acute Low Back Pain (ED) Additional Instructions: Take medication as directed. Do not drink alcohol or operate machinery while taking Flexeril as it can make you sleepy. Follow-up with primary care provider in one to 2 days. Return to the emergency department experience new, concerning, or worsening symptoms. Prescriptions: Cyclobenzaprine [Flexeril] 5 mg PO TID PRN #15 tablet PRN Reason: Muscle Spasm Ibuprofen [Motrin] 800 mg PO Q8HR PRN #21 tab PRN Reason: Pain Is patient prescribed a controlled substance at d/c from ED?: No Referrals: None,Stated [Primary Care Provider] - 1-2 days Time of Disposition: 16:55
[2022-04-04 17:15] VITALS: BP 130/60; PULSE 68; RESP 16
== END 2022-04-04 17:15 | disposition home or self-care (01) ==
LOC: EC 14:04
DX: M54.50 Low back pain, unspecified (principal); F17.200 Nicotine dependence, unspecified, uncomplicated
CPT/HCPCS: 36415; 74176; 80053; 81001; 81025; 83690; 85025; 96360; 96361; 99284

== ENCOUNTER 2023-02-08 21:44 | Outpatient (CLI) | payer BC, OTHER ==
[2023-02-09 00:35] VITALS: BP 124/69; PULSE 94; RESP 18; TEMP 98
[2023-02-09 00:57] LABS: Basophils # (A) 0.1 k/uL (0-0.2); Basophils % (A) 0 %; Eosinophils # (A) 0.8 k/uL (0-0.7); Eosinophils % (A) 5 %; HCT 34.9 % (34.0-46.0); HGB 12.3 gm/dL (11.4-16.0); Lymphocytes # (A) 3.2 k/uL (1.0-4.8); Lymphocytes % (A) 19 %; MCH 32.8 pg (25.0-35.0); MCHC 35.2 g/dL (31.0-37.0); MCV 93.2 fL (80.0-100.0); Mean Platelet Volume 9.7; Monocytes # (A) 1.1 k/uL (0-1.0); Monocytes % (A) 6 %; Neutrophils # (A) 11.7 k/uL (1.3-7.7); Neutrophils % (A) 68 %; Platelet Count 222 k/uL (150-450); RBC 3.75 m/uL (3.80-5.40); RDW 12.4 % (11.5-15.5); WBC 17.1 k/uL (3.8-10.6)
[2023-02-09 01:52] LABS: Amphetamine Screen,Urine Not Detected (NotDetected); Barbiturate Screen,Urine Not Detected (NotDetected); Benzodiazepines Screen,Urine Not Detected (NotDetected); Cocaine Screen,Urine Not Detected (NotDetected); Methadone Screen, Urine Not Detected (NotDetected); Opiate Screen,Urine Not Detected (NotDetected); Oxycodone Screen, Urine Not Detected (NotDetected); Phencyclidine Screen,Urine Not Detected (NotDetected); Tricyclic Antidepressant,Urine Not Detected (NotDetected); Urn Cannabinoid Scrn Not Detected (NotDetected)
[2023-02-09 02:03] LABS: Color,Urine Yellow
[2023-02-09 02:04] LABS: Appearance,Urine Clear (Clear); Bilirubin,Urine Negative (Negative); Blood,Urine Negative (Negative); Glucose,Urine (UA) Negative (Negative); Ketones,Urine Negative (Negative); Leukocyte Esterase,Urine Moderate (Negative); Nitrite,Urine Negative (Negative); PH, Urine 6.5 (5.0-8.0); Protein,Urine Negative (Negative); Specific Gravity,Urine 1.013 (1.001-1.035); Urobilinogen,Urine <2.0 mg/dL (<2.0)
[2023-02-09 02:29] LABS: RBC,Urine 0 /hpf (0-5); Squamous Epithelial Cell,Urine 7 /hpf (0-4); WBC,Urine 0 /hpf (0-5)
[2023-02-09 13:20] LABS: HIV 2 AB Non-Reactive (Non-Reactive); HIV AB P24 Non-Reactive (Non-Reactive); HIV P24 AG Non-Reactive (Non-Reactive)
[2023-02-09 16:14] LABS: Hepatitis B Surface Antigen Nonreactive
[2023-02-10 14:23] LABS: C. trachomatis,PCR Negative (Negative)
[2023-02-10 14:47] LABS: N. gonorrhoeae,PCR Negative (Negative)
--- NOTE | 2023-02-21 09:13 | P.MSEPDOC ---
Presenting Problems - Arrival Data Date of Arrival on Unit: 02/08/23 Time of Arrival on Unit: 21:44 Mode of Transport: Ambulatory - Complaint OB-Reason for Admission/Chief Complaint: Possible Onset of Labor Comment: Pt presents to triage with c/o contractions x2 days, pt also states that she is. feeling some pelvic and rectal pressure along with back pain. States contractions. 5-6/10. Medical History - Information : 6 Para: 5 Term: 3 : 2 Abortions: Spontaneous or Elective: 0 Number of Living Children: 5 - Gestational Age Gestational Age by ALEJANDRA (wks/days): 32 Weeks and 0 Days - History Complications: No Care, Prior Review of Systems - Review of Systems Constitutional: No problems Breast: No problems ENT: No problems Cardiovascular: No problems Respiratory: No problems Gastrointestinal: No problems Genitourinary: No problems Musculoskeletal: No problems Neurological: No problems Skin: No problems Vital Signs - Temperature Temperature: 98.0 F Temperature Source: Oral - Pulse Pulse Oximetery Pulse Rate: 94 Pulse Assessment Method: Pulse Oximetry - Respirations Respiratory Rate: 18 Oxygen Delivery Method: Room Air O2 Sat by Pulse Oximetry: 97 - Blood Pressure Right Arm Blood Pressure: 124/69 Blood Pressure Mean: 87 Blood Pressure Source: Automatic Cuff Medical Screen Scoring - Cervical Exam Dilation (cm): 0 Membranes: Intact - Uterine Contractions Intensity: Mild Resting: Soft to palpation - Assessment - Baby A Baseline FHR: 140 Heart Rate - NICHD Category: Category I (Normal) NST: Reactive Physician Notification - Physician Notified Physician Notified Date: 02/08/23 Physician Notified Time: 22:06 Physician: Dr. Bradley New Order Received: Yes - Notification Comment Comment: Dr. Bradley notified of DOM pt, reviewed pt complaints, G/P, GA by ultrasound. performed at [facility] at 18 weeks, hx of 2 deliveries and smoking,. v/s reviwed, tracing reviewed, contraction pattern. Orders for FFN and cervical exam Maternal Triage Index - Maternal Triage Index Presenting for scheduled procedure w/no complaint: No - Stat/Priority 1 Stat Priority 1: No - Urgent/Priority 2 Urgent Priority 2: No - Prompt/Priority 3 Prompt Priority 3: Yes Criteria Met for Priority 3: Pt presents to triage with c/o contractions x2 days, pt also states that she is. feeling some pelvic and rectal pressure along with back pain. States contractions. -12/19. Disposition - Disposition OB Disposition: Discharge to home, Written follow up instructions reviewed Discharge Date: 02/09/23 Discharge Time: 00:10 I agree with the RN Medical Screening Exam: Yes Case reviewed; plan agreed upon as documented in EMR&OBIX.: Yes Diagnosis: FALSE LABOR AT OR AFTER 37 COMPLETED WEEKS OF GESTATION
== END 2023-02-09 00:10 | disposition home or self-care (01) ==
LOC: FBPOP 21:44
PROVIDERS: ATTEND Obstetrics & Gynecology
DX: O47.03 False labor before 37 completed weeks of gestation, third trimester (principal); O99.333 Smoking (tobacco) complicating pregnancy, third trimester; F17.200 Nicotine dependence, unspecified, uncomplicated; Z3A.32 32 weeks gestation of pregnancy
CPT/HCPCS: 36415; 59025; 80306; 81001; 82731; 82947; 85025; 86762; 86780; 86850; 86900; 86901; 87340; 87390; 87491; 87591; 99213

== ENCOUNTER 2023-03-26 11:52 | Inpatient (IN) | payer OTHER ==
[2023-03-26] MEDS ORDERED: OXYTOCIN 10 UNIT/ML 1 ML VIAL IM PRN (12:24)
[2023-03-26] MEDS ORDERED: AMPICILLIN 2,000 MG in SODIUM CHLORIDE 0.9% 100 ML IVPB STA (12:24)
[2023-03-26] MEDS ORDERED: miSOPROStoL 200 MCG TAB PO PRN (12:24)
[2023-03-26] MEDS ORDERED: CARBOPROST TROMETHAMINE 250 MCG/ML 1 ML AMP IM PRN (12:24)
[2023-03-26] MEDS ORDERED: LIDOCAINE 0.5% (PF) 5 MG/ML (50 ML SDV) SQ PRN (12:24)
[2023-03-26] MEDS ORDERED: METHYLERGONOVINE 0.2 MG/ML 1 ML AMP IM PRN (12:24)
[2023-03-26] MEDS ORDERED: TRANEXAMIC 1,000 MG/100ML-NACL 1,000 MG in EMPTY BAG 1 BAG IV PRN (12:24)
[2023-03-26] MEDS ORDERED: TERBUTALINE 1 MG/ML VIAL SQ PRN (12:24)
[2023-03-26] MEDS: LACTATED RINGERS 1,000 ML IV SCH (12:30)
[2023-03-26] MEDS: OXYTOCIN 30 UNITS/500 ML NS 30 UNIT in SALINE 1 500ML.BAG IV SCH ×2 (12:58→17:51)
[2023-03-26 13:19] LABS: Amphetamine Screen,Urine Not Detected (NotDetected); Barbiturate Screen,Urine Not Detected (NotDetected); Benzodiazepines Screen,Urine Not Detected (NotDetected); Cocaine Screen,Urine Not Detected (NotDetected); Methadone Screen, Urine Not Detected (NotDetected); Opiate Screen,Urine Not Detected (NotDetected); Oxycodone Screen, Urine Not Detected (NotDetected); Phencyclidine Screen,Urine Not Detected (NotDetected); Tricyclic Antidepressant,Urine Not Detected (NotDetected); Urn Cannabinoid Scrn Detected (NotDetected)
[2023-03-26 13:22] LABS: Basophils # (A) 0.1 k/uL (0-0.2); Basophils % (A) 0 %; Eosinophils # (A) 0.5 k/uL (0-0.7); Eosinophils % (A) 3 %; HCT 39.9 % (34.0-46.0); HGB 13.5 gm/dL (11.4-16.0); Lymphocytes # (A) 3.3 k/uL (1.0-4.8); Lymphocytes % (A) 17 %; MCH 31.2 pg (25.0-35.0); MCHC 33.8 g/dL (31.0-37.0); MCV 92.4 fL (80.0-100.0); Mean Platelet Volume 10.3; Monocytes # (A) 0.8 k/uL (0-1.0); Monocytes % (A) 4 %; Neutrophils # (A) 14.3 k/uL (1.3-7.7); Neutrophils % (A) 74 %; Platelet Count 242 k/uL (150-450); RBC 4.32 m/uL (3.80-5.40); RDW 12.7 % (11.5-15.5); WBC 19.3 k/uL (3.8-10.6)
[2023-03-26 15:29] VITALS: RESP 16
[2023-03-26] MEDS ORDERED: NALBUPHINE 10 MG/ML (10 ML MDV) IV PRN (16:06)
[2023-03-26] MEDS: AMPICILLIN 1,000 MG in SODIUM CHLORIDE 0.9% 50 ML IVPB SCH ×2 (16:57→21:51)
--- NOTE | 2023-03-26 17:38 | P.HPOB ---
History of Present Illness H&P Date: 03/26/23 Chief Complaint: IUP at 38-3/7 weeks, SROM, no care The 27-year-old 8 para 32-5 at 30 3/7 weeks that presents to labor and delivery with complaints of spontaneous rupture of membranes around 6 AM. Patient states fluid was clear in nature. Patient had 1 ultrasound during the at 18 weeks at the care center. Patient stated by this ultrasound. Estimated due date of 04/06. Patient notes irregular contraction. She has noted good movement denies vaginal bleeding. Patient was seen in triage a few weeks previous to this admission labs were obtained. Patient is a blood type of A+, rubella status immune, hepatitis B surface antigen negative, HIV nonreactive, RPR is nonreactive, group beta strep cultures negative. Upon questioning she states she's never received antibiotics for any for previous delivery secondary to GBS. HAMMERER history 8 para 3224 She states she has had 4 spontaneous vaginal deliveries Anywhere from 33-39 weeks of gestation. She states that 33 week delivery was after she was treated for pneumonia. She has not had any care during this she states she was unable to obtain care. Review of Systems Constitutional: Denies chills, Denies fatigue, Denies fever Ears, nose, mouth and throat: Denies headache Cardiovascular: Denies leg edema Respiratory: Denies dyspnea Genitourinary: Reports Past Medical History Past Medical History: No Reported History Additional Past Medical History / Comment(s): ADHD. Patient had an upper endoscopy for a piece of stuck steak. Past obstetrical history: She has had 5 spontaneous vaginal deliveries 7 lbs. 0 oz. and 7 lbs. 4 oz. and she has had 2 spontaneous miscarriages, History of Any Multi-Drug Resistant Organisms: None Reported Past Surgical History: Orthopedic Surgery, Tonsillectomy Additional Past Surgical History / Comment(s): right knee surgery Past Anesthesia/Blood Transfusion Reactions: No Reported Reaction Past Psychological History: ADD/ADHD, Anxiety, Depression Smoking Status: Current every day smoker Past Alcohol Use History: None Reported, Rare Past Drug Use History: Marijuana - Past Family History Mother Family Medical History: No Reported History Medications and Allergies Home Medications Medication Instructions Recorded Confirmed Type Vit No.179/Iron/Folic 1 tab PO DAILY 02/09/23 03/26/23 History [ Tablet] Allergies Allergy/AdvReac Type Severity Reaction Status Date / Time No Known Allergies Allergy Verified 03/26/23 12:03 Exam Osteopathic Statement: *. No significant issues noted on an osteopathic structural exam other than those noted in the History and Physical/Consult. Vital Signs Temp Pulse Resp BP Pulse Ox 03/26/23 12:30 98.5 F 82 16 137/64 98 03/26/23 12:03 98.4 F 88 16 110/70 98 Intake and Output 03/26/23 03/26/23 03/26/23 06:59 14:59 22:59 Other: # Voids 2 Weight 61.235 kg Targeted physical exam is performed on this date, in general this is a female in obvious active labor, breathing is nonlabored, abdomen is gravid, cervical exam she is completely dilated at +2 station and began pushing upon my arrival. heart tones were noted to be reassuring and she was miladis every 2 minutes. Results Result Diagrams: 03/26/23 12:50 Abnormal Lab Results - Last 24 Hours (Table) 03/26/23 03/26/23 Range/Units 12:50 12:50 WBC 19.3 H (3.8-10.6) k/uL Neutrophils # 14.3 H (1.3-7.7) k/uL U Marijuana (THC) Screen Detected H (NotDetected) Assessment and Plan (1) Term Current Visit: Yes Status: Acute Code(s): Z34.90 - ENCNTR FOR SUPRVSN OF NORMAL , UNSP, UNSP TRIMESTER SNOMED Code(s): 53137781 Plan: 27-year-old 8 para 3224 at 38-3/7 weeks that presented with complaints of spontaneous rupture of membranes. Patient was admitted and Pitocin augmentation of labor was begun. Antibiotic prophylaxis was given as GBS status was unknown and she has had no care. Anticipate spontaneous vaginal delivery.
[2023-03-26] MEDS ORDERED: ZOLPIDEM 5 MG TAB PO PRN (17:42)
[2023-03-26] MEDS ORDERED: BENZOCAINE/MENTHOL SPRAY 1 GM/SPRAY AEROSOL TOPICAL PRN (17:42)
[2023-03-26] MEDS ORDERED: diphenhydrAMINE 50 MG/ML 1 ML VIAL IVP PRN ×2 (17:42)
[2023-03-26] MEDS ORDERED: diphenhydrAMINE 50 MG CAP PO PRN (17:42)
[2023-03-26] MEDS ORDERED: HYDROCORTISONE 2.5% RECTAL CREAM 30 GM TUBE RECTAL PRN (17:42)
[2023-03-26] MEDS ORDERED: LANOLIN CREAM 5 GM TUBE TOPICAL PRN (17:42)
[2023-03-26] MEDS ORDERED: diphenhydrAMINE 25 MG CAP PO PRN (17:42)
[2023-03-26] MEDS ORDERED: SIMETHICONE 80 MG CHEWABLE PO PRN (17:42)
--- NOTE | 2023-03-26 17:42 | P.PROBDLV ---
Vaginal Delivery Note - . Vaginal Delivery Note: Findings: Viable female delivered at 1719, weight of 7 pounds 5.8 ounces, Apgars of 4,9 and 9 at one, 5, 10 minutes respectively. 27-year-old female presented at 38-3/7 weeks with complaints of spontaneous rupture of membranes. Patient was noted to be 2 cm dilated on admission. Pitocin induction augmentation of labor was begun per hospital protocol. Patient declined analgesia. Patient moved quickly through labor eventually noted to be completely dilated. With excellent maternal effort patient delivered a viable female infant over intact perineum with a loose body cord delivered through. The umbilical cord was doubly clamped and cut, the placenta was delivered spontaneously intact with a three-vessel cord being noted. On inspection the patient's vaginal vault bilateral labial lacerations are appreciated, hemostatic in nature. Uterus is noted to be firm and below the umbilicus, estimated blood loss 100 mL Patient and infant tolerated delivery well and are resting comfortably.
[2023-03-26] MEDS: IBUPROFEN 600 MG TAB PO SCH (18:04)
[2023-03-26] MEDS: SENNOSIDES-DOCUSATE SODIUM 1 EACH TAB PO SCH (21:17)
[2023-03-26] MEDS: ACETAMINOPHEN TAB 325 MG TAB PO PRN (21:18)
[2023-03-27] MEDS: IBUPROFEN 600 MG TAB PO SCH ×2 (01:50→08:24)
[2023-03-27] MEDS: LACTATED RINGERS 1,000 ML IV SCH (03:50)
[2023-03-27] MEDS: ACETAMINOPHEN TAB 325 MG TAB PO PRN ×2 (05:14→11:39)
[2023-03-27 06:02] LABS: Basophils # (A) 0.1 k/uL (0-0.2); Basophils % (A) 1 %; Eosinophils # (A) 0.8 k/uL (0-0.7); Eosinophils % (A) 4 %; HCT 38.9 % (34.0-46.0); HGB 13.1 gm/dL (11.4-16.0); Lymphocytes # (A) 3.2 k/uL (1.0-4.8); Lymphocytes % (A) 17 %; MCH 31.8 pg (25.0-35.0); MCHC 33.6 g/dL (31.0-37.0); MCV 94.6 fL (80.0-100.0); Mean Platelet Volume 9.3; Monocytes # (A) 1.1 k/uL (0-1.0); Monocytes % (A) 6 %; Neutrophils # (A) 13.8 k/uL (1.3-7.7); Neutrophils % (A) 72 %; Platelet Count 230 k/uL (150-450); RBC 4.11 m/uL (3.80-5.40); RDW 12.5 % (11.5-15.5); WBC 19.4 k/uL (3.8-10.6)
[2023-03-27] MEDS: SENNOSIDES-DOCUSATE SODIUM 1 EACH TAB PO SCH (08:24)
[2023-03-27] MEDS ORDERED: PRENATAL VIT-IRON-FOLIC ACID 1 EACH TABLET PO SCH (09:00)
--- NOTE | 2023-03-27 09:48 | P.DS ---
Providers Date of admission: 03/26/23 12:29 Expected date of discharge: 03/27/23 Attending physician: Janel Kaufman Primary care physician: Stated None - Discharge Diagnosis(es) (1) Term Current Visit: Yes Status: Acute (2) Status post vaginal delivery Current Visit: Yes Status: Acute Hospital Course: 27-year-old 8 now Para 4224 that presented to labor and delivery at 38- 3/7 weeks with complaints of spontaneous rupture of membranes. Patient had received no care throughout the . Patient did have an ultrasound at the care center around 18 weeks giving an estimated due date of 04/06. Patient was noted to be in active labor upon admission, history was obtained. For full detail in this patient please see the dictated history and physical. Patient was noted to be 2 cm and grossly ruptured upon admission to labor and delivery. IV antibiotics were begun given GBS status unknown, Pitocin augmentation of labor was begun in addition. Patient progressed through labor and was noted to be completely dilated. With excellent maternal effort had a normal spent taste vaginal delivery of a viable female at 1719, weight of 7 pounds 5.8 ounces, Apgars of 4, 9, 9 at one, 5, 10 minutes respectively. Patient's course has been uneventful. On this day #1 she is ambulating and voiding without difficulty. She is tolerating a regular diet without nausea or vomiting. She states her pain is well-controlled with oral ibuprofen. She would like discharge home later today if possible. Patient Condition at Discharge: Good Plan - Discharge Summary New Discharge Prescriptions: No Action Vit No.179/Iron/Folic [ Tablet] 1 tab PO DAILY Discharge Medication List Vit No.179/Iron/Folic [ Tablet] 1 tab PO DAILY 02/09/23 [History] Follow up Appointment(s)/Referral(s): Janel Kaufman DO [Doctor of Osteopathic Medicine] - 6 Weeks Patient Instructions/Handouts: Vaginal Delivery (GEN), Vaginal Delivery (DC) Activity/Diet/Wound Care/Special Instructions: No tub baths or intercourse until 6 weeks . [id number] ibuprofen as needed for pain. bleeding is discussed with patient, questions answered. Discharge Disposition: HOME SELF-CARE
[2023-03-27 16:27] VITALS: BP 111/67; PULSE 71; TEMP 98
== END 2023-03-27 18:11 | disposition home or self-care (01) | DRG 560 ==
LOC: FBPOP 11:52 → 4FBP 12:29
PROVIDERS: ADMIT Obstetrics & Gynecology Obstetrics; ATTEND Obstetrics & Gynecology Obstetrics
PROC: 10E0XZZ Delivery of Products of Conception, External Approach (ICD-10-PCS; principal; 2023-03-26)
PROC: 0HQ9XZZ Repair Perineum Skin, External Approach (ICD-10-PCS; 2023-03-26)
DX: O99.334 Smoking (tobacco) complicating childbirth (principal); Z37.0 Single live birth; F17.210 Nicotine dependence, cigarettes, uncomplicated; O70.0 First degree perineal laceration during delivery; O75.89 Other specified complications of labor and delivery; Z3A.38 38 weeks gestation of pregnancy; Z28.310 Unvaccinated for COVID-19
CPT/HCPCS: 59025; 80306; 84112; 85025; 86850; 86900; 86901; 99213

== ENCOUNTER 2023-09-17 00:04 | Emergency (ER) | payer OTHER ==
--- NOTE | 2023-09-17 01:43 | ED ---
General Adult HPI - General Chief complaint: Shortness of Breath Stated complaint: SOB, CHEST PAIN Time Seen by Provider: 09/17/23 00:37 Source: patient Mode of arrival: ambulatory Limitations: no limitations - History of Present Illness Initial comments: 28-year-old female with a past medical history significant for asthma. Patient presented to the ED with chief complaint of cough and shortness of breath. Patient reports onset of cough yesterday. Worsening today with some associated shortness of breath. Patient also notes some pain on both sides of her chest. Pain is worse with coughing and deep breath. Pain does not radiate. Patient reports she does not have an inhaler at home. No abdominal pain. No change in bowel or bladder habits. No fever or chills. No other complaints at this time. - Related Data Home Medications Medication Instructions Recorded Confirmed Vit No.179/Iron/Folic 1 tab PO DAILY 02/09/23 03/26/23 [ Tablet] Previous Rx's Medication Instructions Recorded Albuterol Inhaler [Ventolin Hfa 1 - 2 puff INHALATION Q6H PRN #1 09/17/23 Inhaler] each methylPREDNISolone Dose Pack 4 mg PO DIRECTED #21 tab 09/17/23 [Medrol Dose Pack] predniSONE [Deltasone] 40 mg PO DAILY 5 Days #10 tab 09/17/23 Allergies Allergy/AdvReac Type Severity Reaction Status Date / Time No Known Allergies Allergy Verified 09/17/23 00:08 Review of Systems ROS Statement: Those systems with pertinent positive or pertinent negative responses have been documented in the HPI. ROS Other: All systems not noted in ROS Statement are negative. Past Medical History Past Medical History: No Reported History Additional Past Medical History / Comment(s): ADHD. Patient had an upper endoscopy for a piece of stuck steak. Past obstetrical history: She has had 5 spontaneous vaginal deliveries 7 lbs. 0 oz. and 7 lbs. 4 oz. and she has had 2 spontaneous miscarriages, History of Any Multi-Drug Resistant Organisms: None Reported Past Surgical History: Orthopedic Surgery, Tonsillectomy Additional Past Surgical History / Comment(s): right knee surgery Past Anesthesia/Blood Transfusion Reactions: No Reported Reaction Past Psychological History: ADD/ADHD, Anxiety, Depression Smoking Status: Current every day smoker Past Alcohol Use History: None Reported, Rare Past Drug Use History: Marijuana - Past Family History Mother Family Medical History: No Reported History General Exam Limitations: no limitations General appearance: alert, in no apparent distress Eye exam: Present: normal appearance Neck exam: Present: normal inspection Respiratory exam: Present: wheezes Cardiovascular Exam: Present: regular rate, normal rhythm GI/Abdominal exam: Present: soft Neurological exam: Present: alert, oriented X3 Skin exam: Present: warm, dry Course Vital Signs 09/17/23 09/17/23 09/17/23 00:05 01:50 02:20 Temperature 97.3 F L Pulse Rate 93 78 75 Respiratory 20 20 Rate Blood Pressure 108/72 118/66 O2 Sat by Pulse 93 L 94 L Oximetry 09/17/23 02:34 Temperature Pulse Rate 65 Respiratory Rate Blood Pressure O2 Sat by Pulse Oximetry Medical Decision Making - Medical Decision Making Was pt. sent in by a medical professional or institution (, PA, EXPORT SPECIALIST, urgent care, hospital, or jail...) When possible be specific @ -No Did you speak to anyone other than the patient for history (EMS, parent, family, police, friend...)? What history was obtained from this source @ -No Did you review nursing and triage notes (agree or disagree)? Why? @ -I reviewed and agree with nursing and triage notes Were old charts reviewed (outside hosp., previous admission, EMS record, old EKG, old radiological studies, urgent care reports/EKG's, jail records)? Report findings @ -No old charts were reviewed Differential Diagnosis (chest pain, altered mental status, abdominal pain women, abdominal pain men, vaginal bleeding, weakness, fever, dyspnea, syncope, headache, dizziness, GI bleed, back pain, seizure, CVA, palpatations, mental health, musculoskeletal)? @ -Differential Dyspnea: Coronary syndrome, arrhythmia, tamponade, asthma, COPD, pulmonary embolism, pneumonia, pneumothorax, pulmonary effusion, anaphylaxis, diabetic ketoacidosis, flailed chest, pulmonary contusion, diaphragmatic rupture, anemia, neuromuscular, this is not meant to be an all-inclusive list. EKG interpreted by me (3pts min.). @ -EKG interpreted me showing a sinus rhythm with some nonspecific changes. Rate of 77 bpm. SC 145, QRS 81, QT/QTc 357/289. X-rays interpreted by me (1pt min.). @ -Chest x-ray interpreted me showing no evidence of acute finding. CT interpreted by me (1pt min.). @ -None done U/S interpreted by me (1pt. min.). @ -None done What testing was considered but not performed or refused? (CT, X-rays, U/S, labs)? Why? @ -None What meds were considered but not given or refused? Why? @ -None Did you discuss the management of the patient with other professionals (professionals i.e. DrSamantha, PA, EXPORT SPECIALIST, lab, RT, psych nurse, social insurance administrator, glue mounter operator, teacher, affirmative action officer, rn field case manager)? Give summary @ -No Was smoking cessation discussed for >3mins.? @ -No Was critical care preformed (if so, how long)? @ -No Were there social determinants of health that impacted care today? How? (Homelessness, low income, unemployed, alcoholism, drug addiction, transportation, low edu. Level, literacy, decrease access to med. care, longterm, rehab)? @ -No Was there de-escalation of care discussed even if they declined (Discuss DNR or withdrawal of care, Hospice)? DNR status @ -No What co-morbidities impacted this encounter? (DM, HTN, Smoking, COPD, CAD, Cancer, CVA, ARF, Chemo, Hep., AIDS, mental health diagnosis, sleep apnea, morbid obesity)? @ -Asthma Was patient admitted / discharged? Hospital course, mention meds given and route, prescriptions, significant lab abnormalities, going to OR and other pertinent info. @ -Discharge 28-year-old female presenting to the ED with complaints of cough and dyspnea for the past 1 to 2 days. On exam is wheezing in bilateral lung perkins however does not appear to have any evidence of respiratory distress. Labs including CBC, CMP, UA unremarkable. Troponin undetectable. D-dimer unremarkable. In regards to chest pain likely musculoskeletal in nature as pain is atypical in nature and reproductive on exam. Patient did receive a breathing treatment with some improvement of wheezing. At this point, patient reports that she feels improved and would like to go home. She did receive steroids here in the ED. Reports not having an inhaler at home. She is provided a prescription for this and additional prescription for prednisone as well. Discharged home in stable condition. Discussed strict return precautions with patient who verbalized agreement. Undiagnosed new problem with uncertain prognosis? @ -No Drug Therapy requiring intensive monitoring for toxicity (Heparin, Nitro, Insulin, Cardizem)? @ -No Were any procedures done? @ -No Diagnosis/symptom? @ -Viral URI, asthma exacerbation Acute, or Chronic, or Acute on Chronic? @ -Acute Uncomplicated (without systemic symptoms) or Complicated (systemic symptoms)? @ -Complicated Side effects of treatment? @ -No Exacerbation, Progression, or Severe Exacerbation? @ -No Poses a threat to life or bodily function? How? (Chest pain, [place], [place], pneumonia, PE, COPD, DKA, ARF, appy, cholecystitis, CVA, Diverticulitis, Homicidal, Suicidal, threat to staff... and all critical care pts) @ -Unlikely - Lab Data Result diagrams: 09/17/23 01:42 09/17/23 01:42 Lab Results 09/17/23 09/17/23 09/17/23 Range/Units 01:00 01:42 01:42 WBC 9.7 (3.8-10.6) k/uL RBC 4.72 (3.80-5.40) m/uL Hgb 15.0 (11.4-16.0) gm/dL Hct 43.6 (34.0-46.0) % MCV 92.3 (80.0-100.0) fL MCH 31.7 (25.0-35.0) pg MCHC 34.3 (31.0-37.0) g/dL RDW 12.7 (11.5-15.5) % Plt Count 275 (150-450) k/uL MPV 9.5 Neutrophils % 56 % Lymphocytes % 27 % Monocytes % 7 % Eosinophils % 7 % Basophils % 1 % Neutrophils # 5.4 (1.3-7.7) k/uL Lymphocytes # 2.6 (1.0-4.8) k/uL Monocytes # 0.7 (0-1.0) k/uL Eosinophils # 0.6 (0-0.7) k/uL Basophils # 0.1 (0-0.2) k/uL PT 11.0 (10.0-12.5) sec INR 1.0 (<1.2) APTT 31.2 H (22.0-30.0) sec D-Dimer 0.39 (<0.60) mg/L FEU Sodium (137-145) mmol/L Potassium (3.5-5.1) mmol/L Chloride (98-107) mmol/L Carbon Dioxide (22-30) mmol/L Anion Gap mmol/L BUN (7-17) mg/dL Creatinine (0.52-1.04) mg/dL Est GFR (CKD-EPI)AfAm (>60 ml/min/1.73 sqM) Est GFR (CKD-EPI)NonAf (>60 ml/min/1.73 sqM) Glucose (74-99) mg/dL Calcium (8.4-10.2) mg/dL Magnesium (1.6-2.3) mg/dL Total Bilirubin (0.2-1.3) mg/dL AST (14-36) U/L ALT (4-34) U/L Alkaline Phosphatase (38-126) U/L Troponin I (0.000-0.034) ng/mL Total Protein (6.3-8.2) g/dL Albumin (3.5-5.0) g/dL Influenza Type A (PCR) Not Detected (Not Detectd) Influenza Type B (PCR) Not Detected (Not Detectd) RSV (PCR) Not Detected (Not Detectd) SARS-CoV-2 (PCR) Not Detected (Not Detectd) 09/17/23 09/17/23 Range/Units 01:42 01:42 WBC (3.8-10.6) k/uL RBC (3.80-5.40) m/uL Hgb (11.4-16.0) gm/dL Hct (34.0-46.0) % MCV (80.0-100.0) fL MCH (25.0-35.0) pg MCHC (31.0-37.0) g/dL RDW (11.5-15.5) % Plt Count (150-450) k/uL MPV Neutrophils % % Lymphocytes % % Monocytes % % Eosinophils % % Basophils % % Neutrophils # (1.3-7.7) k/uL Lymphocytes # (1.0-4.8) k/uL Monocytes # (0-1.0) k/uL Eosinophils # (0-0.7) k/uL Basophils # (0-0.2) k/uL PT (10.0-12.5) sec INR (<1.2) APTT (22.0-30.0) sec D-Dimer (<0.60) mg/L FEU Sodium 139 (137-145) mmol/L Potassium 4.7 (3.5-5.1) mmol/L Chloride 113 H (98-107) mmol/L Carbon Dioxide 17 L (22-30) mmol/L Anion Gap 9 mmol/L BUN 10 (7-17) mg/dL Creatinine 0.62 (0.52-1.04) mg/dL Est GFR (CKD-EPI)AfAm >90 (>60 ml/min/1.73 sqM) Est GFR (CKD-EPI)NonAf >90 (>60 ml/min/1.73 sqM) Glucose 68 L (74-99) mg/dL Calcium 9.4 (8.4-10.2) mg/dL Magnesium 1.9 (1.6-2.3) mg/dL Total Bilirubin 1.6 H (0.2-1.3) mg/dL AST 24 (14-36) U/L ALT 15 (4-34) U/L Alkaline Phosphatase 86 (38-126) U/L Troponin I <0.012 (0.000-0.034) ng/mL Total Protein 7.1 (6.3-8.2) g/dL Albumin 4.5 (3.5-5.0) g/dL Influenza Type A (PCR) (Not Detectd) Influenza Type B (PCR) (Not Detectd) RSV (PCR) (Not Detectd) SARS-CoV-2 (PCR) (Not Detectd) Disposition Clinical Impression: Viral URI, Asthma exacerbation Disposition: HOME SELF-CARE Condition: Good Instructions (If sedation given, give patient instructions): Asthma (ED) Additional Instructions: Please return to the Emergency Department if symptoms worsen or any other concerns. Please follow-up with your PCP. Prescriptions: predniSONE [Deltasone] 40 mg PO DAILY 5 Days #10 tab methylPREDNISolone Dose Pack [Medrol Dose Pack] 4 mg PO DIRECTED #21 tab Albuterol Inhaler [Ventolin Hfa Inhaler] 1 - 2 puff INHALATION Q6H PRN #1 each PRN Reason: Shortness Of Breath Is patient prescribed a controlled substance at d/c from ED?: No Referrals: None,Stated [Primary Care Provider] - 1-2 days Time of Disposition: 03:00
[2023-09-17] MEDS: methylPREDNISolone SOD SUCCI 125 MG/2 ML VIAL IV STA (01:48)
[2023-09-17 01:52] LABS: Basophils # (A) 0.1 k/uL (0-0.2); Basophils % (A) 1 %; Eosinophils # (A) 0.6 k/uL (0-0.7); Eosinophils % (A) 7 %; HCT 43.6 % (34.0-46.0); Lymphocytes # (A) 2.6 k/uL (1.0-4.8); Lymphocytes % (A) 27 %; MCH 31.7 pg (25.0-35.0); MCHC 34.3 g/dL (31.0-37.0); MCV 92.3 fL (80.0-100.0); Mean Platelet Volume 9.5; Monocytes # (A) 0.7 k/uL (0-1.0); Monocytes % (A) 7 %; Neutrophils # (A) 5.4 k/uL (1.3-7.7); Neutrophils % (A) 56 %; Platelet Count 275 k/uL (150-450); RBC 4.72 m/uL (3.80-5.40); RDW 12.7 % (11.5-15.5); WBC 9.7 k/uL (3.8-10.6)
--- NOTE | 2023-09-17 01:56 | XR ---
EXAM: XR Chest, 2 Views CLINICAL HISTORY: ITS.REASON XR Reason: r/o pna TECHNIQUE: Frontal and lateral views of the chest. COMPARISON: 03/27/2022 FINDINGS: Lungs: Unremarkable. No consolidation. Pleural space: Unremarkable. No pneumothorax. No pleural effusions. Heart: Unremarkable. No cardiomegaly. Mediastinum: Unremarkable. Normal mediastinal contour. Bones/joints: No acute osseous abnormalities. IMPRESSION: Normal chest.
[2023-09-17 02:04] LABS: ALT 15 U/L (4-34); AST 24 U/L (14-36); African American GFR (CKD) >90 (>60 ml/min/1.73 sqM); Albumin 4.5 g/dL (3.5-5.0); Alkaline Phosphatase 86 U/L (38-126); Anion Gap 9 mmol/L; Blood Urea Nitrogen 10 mg/dL (7-17); Calcium 9.4 mg/dL (8.4-10.2); Carbon Dioxide 17 mmol/L (22-30); Chloride 113 mmol/L (98-107); Glucose 68 mg/dL (74-99); Magnesium 1.9 mg/dL (1.6-2.3); Non-African American GFR(CKD) >90 (>60 ml/min/1.73 sqM); Potassium 4.7 mmol/L (3.5-5.1); Sodium 139 mmol/L (137-145); Total Bilirubin 1.6 mg/dL (0.2-1.3); Total Protein 7.1 g/dL (6.3-8.2)
[2023-09-17 02:17] LABS: Partial Thromboplastin Time 31.2 sec (22.0-30.0)
[2023-09-17] MEDS: IPRATROPIUM-ALBUTEROL 3 ML NEB INHALATION STA (02:19)
[2023-09-17 04:00] VITALS: BP 111/70; PULSE 100; RESP 18; TEMP 97.6
== END 2023-09-17 03:33 | disposition home or self-care (01) ==
LOC: EC 00:04
DX: J06.9 Acute upper respiratory infection, unspecified (principal); J45.901 Unspecified asthma with (acute) exacerbation; F12.90 Cannabis use, unspecified, uncomplicated; F17.200 Nicotine dependence, unspecified, uncomplicated; Z20.822 Contact with and (suspected) exposure to COVID-19
CPT/HCPCS: 36415; 94640; 93005; 85379; 80053; 83735; 84484; 85025; 85610; 85730; 87636; 71046; 99285; 96374; J2930

== ENCOUNTER 2023-10-02 20:59 | Emergency (ER) | payer OTHER ==
[2023-10-02 21:38] VITALS: RESP 18; TEMP 97.9
--- NOTE | 2023-10-02 22:59 | ED ---
General Adult HPI - General Chief complaint: Skin/Abscess/Foreign Body Stated complaint: rash Time Seen by Provider: 10/02/23 21:44 Source: patient Mode of arrival: ambulatory Limitations: no limitations - History of Present Illness Initial comments: 28-year-old female with a past medical history significant for HSV-1 presenting to the ED with chief point of skin problem. Patient states earlier in the week noticed a rash to her fingers. She first noticed this on her left second finger. States over the past few days this is started to spread to her other fingers. No redness overlying rash. No fever or chills. No chest pain or shortness of breath. No other complaints at this time. - Related Data Home Medications Medication Instructions Recorded Confirmed Vit No.179/Iron/Folic 1 tab PO DAILY 02/09/23 03/26/23 [ Tablet] Previous Rx's Medication Instructions Recorded Albuterol Inhaler [Ventolin Hfa 1 - 2 puff INHALATION Q6H PRN #1 09/17/23 Inhaler] each methylPREDNISolone Dose Pack 4 mg PO DIRECTED #21 tab 09/17/23 [Medrol Dose Pack] predniSONE [Deltasone] 40 mg PO DAILY 5 Days #10 tab 09/17/23 Allergies Allergy/AdvReac Type Severity Reaction Status Date / Time No Known Allergies Allergy Verified 10/02/23 21:26 Review of Systems ROS Statement: Those systems with pertinent positive or pertinent negative responses have been documented in the HPI. ROS Other: All systems not noted in ROS Statement are negative. Past Medical History Past Medical History: No Reported History Additional Past Medical History / Comment(s): ADHD. Patient had an upper endoscopy for a piece of stuck steak. Past obstetrical history: She has had 5 spontaneous vaginal deliveries 7 lbs. 0 oz. and 7 lbs. 4 oz. and she has had 2 spontaneous miscarriages, History of Any Multi-Drug Resistant Organisms: None Reported Past Surgical History: Orthopedic Surgery, Tonsillectomy Additional Past Surgical History / Comment(s): right knee surgery Past Anesthesia/Blood Transfusion Reactions: No Reported Reaction Past Psychological History: ADD/ADHD, Anxiety, Depression Smoking Status: Current every day smoker Past Alcohol Use History: None Reported, Rare Past Drug Use History: Marijuana - Past Family History Mother Family Medical History: No Reported History General Exam Limitations: no limitations General appearance: alert, in no apparent distress Eye exam: Present: normal appearance Neck exam: Present: normal inspection Respiratory exam: Present: normal lung sounds bilaterally Cardiovascular Exam: Present: regular rate Extremities exam: Present: other (Grouped vesicular lesions on fingers 1 through 4 on the left hand with no overlying warmth, erythema.) Neurological exam: Present: alert, oriented X3 Skin exam: Present: warm, dry Course Vital Signs 10/02/23 21:23 Temperature 97.9 F Pulse Rate 79 Respiratory 18 Rate Blood Pressure 95/64 O2 Sat by Pulse 97 Oximetry Medical Decision Making - Medical Decision Making Was pt. sent in by a medical professional or institution (, NAYELY, ROAD CREW MEMBER, urgent care, hospital, or retirement...) When possible be specific @ -No Did you speak to anyone other than the patient for history (EMS, parent, family, police, friend...)? What history was obtained from this source @ -No Did you review nursing and triage notes (agree or disagree)? Why? @ -I reviewed and agree with nursing and triage notes Were old charts reviewed (outside hosp., previous admission, EMS record, old EKG, old radiological studies, urgent care reports/EKG's, retirement records)? Report findings @ -No old charts were reviewed Differential Diagnosis (chest pain, altered mental status, abdominal pain women, abdominal pain men, vaginal bleeding, weakness, fever, dyspnea, syncope, headache, dizziness, GI bleed, back pain, seizure, CVA, palpatations, mental health, musculoskeletal)? @ -Cellulitis, MRSA, herpes simplex. This not meant to be an all-inclusive list. EKG interpreted by me (3pts min.). @ -None X-rays interpreted by me (1pt min.). @ -None done CT interpreted by me (1pt min.). @ -None done U/S interpreted by me (1pt. min.). @ -None done What testing was considered but not performed or refused? (CT, X-rays, U/S, labs)? Why? @ -None What meds were considered but not given or refused? Why? @ -None Did you discuss the management of the patient with other professionals (professionals i.e. NAYELY Lugo, ROAD CREW MEMBER, lab, RT, psych nurse, social worker health services, manager administrative services, teacher, founder chairman and chief creative officer, digital campaign manager)? Give summary @ -No Was smoking cessation discussed for >3mins.? @ -No Was critical care preformed (if so, how long)? @ -No Were there social determinants of health that impacted care today? How? (Homel essness, low income, unemployed, alcoholism, drug addiction, transportation, low edu. Level, literacy, decrease access to med. care, longterm, rehab)? @ -No Was there de-escalation of care discussed even if they declined (Discuss DNR or withdrawal of care, Hospice)? DNR status @ -No What co-morbidities impacted this encounter? (DM, HTN, Smoking, COPD, CAD, Cancer, CVA, ARF, Chemo, Hep., AIDS, mental health diagnosis, sleep apnea, morbid obesity)? @ -HSV 1 Was patient admitted / discharged? Hospital course, mention meds given and route, prescriptions, significant lab abnormalities, going to OR and other pertinent info. @ -Discharge 28-year-old female with a history of herpes simplex presenting to the ED with a chief complaint of rash to her left fingers. Initially states started on her left second finger however has spread to her other fingers. On examination she has grouped vesicular lesions with no overlying warmth, erythema and not significantly tender to palpation. Rash appears consistent with herpetic josué. Advised supportive care. Discharged home in stable condition and advised follow-up with PCP. Discussed return precautions with patient who verbalized agreement. Undiagnosed new problem with uncertain prognosis? @ -No Drug Therapy requiring intensive monitoring for toxicity (Heparin, Nitro, Insulin, Cardizem)? @ -No Were any procedures done? @ -No Diagnosis/symptom? @ -Herpetic josué Acute, or Chronic, or Acute on Chronic? @ -Acute Uncomplicated (without systemic symptoms) or Complicated (systemic symptoms)? @ -Uncomplicated Side effects of treatment? @ -No Exacerbation, Progression, or Severe Exacerbation? @ -No Poses a threat to life or bodily function? How? (Chest pain, [place], [place], pneumonia, PE, COPD, DKA, ARF, appy, cholecystitis, CVA, Diverticulitis, Homicidal, Suicidal, threat to staff... and all critical care pts) @ -No Disposition Clinical Impression: Herpetic josué Disposition: HOME SELF-CARE Condition: Good Additional Instructions: Please return to the Emergency Department if symptoms worsen or any other concerns. Please follow-up with your primary care provider. Is patient prescribed a controlled substance at d/c from ED?: No Referrals: None,Stated [Primary Care Provider] - 1-2 days Time of Disposition: 23:06
[2023-10-03 00:06] VITALS: BP 101/66; PULSE 57
== END 2023-10-03 00:07 | disposition home or self-care (01) ==
LOC: EC 20:59
DX: B00.89 Other herpesviral infection (principal); F17.200 Nicotine dependence, unspecified, uncomplicated
CPT/HCPCS: 99282

== ENCOUNTER 2023-11-23 16:58 | Emergency (ER) | payer OTHER ==
[2023-11-23 17:25] LABS: Basophils # (A) 0.1 k/uL (0-0.2); Basophils % (A) 1 %; Eosinophils # (A) 0.3 k/uL (0-0.7); Eosinophils % (A) 3 %; HCT 40.3 % (34.0-46.0); HGB 13.7 gm/dL (11.4-16.0); Lymphocytes # (A) 4.8 k/uL (1.0-4.8); Lymphocytes % (A) 36 %; MCH 31.3 pg (25.0-35.0); MCHC 33.9 g/dL (31.0-37.0); MCV 92.3 fL (80.0-100.0); Mean Platelet Volume 8.2; Monocytes # (A) 0.6 k/uL (0-1.0); Monocytes % (A) 4 %; Neutrophils # (A) 7.2 k/uL (1.3-7.7); Neutrophils % (A) 54 %; Platelet Count 271 k/uL (150-450); RBC 4.37 m/uL (3.80-5.40); RDW 12.5 % (11.5-15.5); WBC 13.2 k/uL (3.8-10.6)
[2023-11-23 17:28] VITALS: TEMP 98.2
[2023-11-23 17:34] LABS: ALT 14 U/L (4-34); AST 16 U/L (14-36); African American GFR (CKD) >90 (>60 ml/min/1.73 sqM); Albumin 4.4 g/dL (3.5-5.0); Alkaline Phosphatase 57 U/L (38-126); Anion Gap 9 mmol/L; Blood Urea Nitrogen 9 mg/dL (7-17); Calcium 9.3 mg/dL (8.4-10.2); Carbon Dioxide 21 mmol/L (22-30); Chloride 110 mmol/L (98-107); Glucose 108 mg/dL (74-99); Non-African American GFR(CKD) >90 (>60 ml/min/1.73 sqM); Potassium 3.5 mmol/L (3.5-5.1); Sodium 140 mmol/L (137-145); Total Bilirubin 1.4 mg/dL (0.2-1.3); Total Protein 6.9 g/dL (6.3-8.2)
[2023-11-23 17:47] LABS: INR 1.1 (<1.2); Prothrombin Time 11.7 sec (10.0-12.5)
[2023-11-23 19:31] LABS: Appearance,Urine Clear (Clear); Bilirubin,Urine Negative (Negative); Blood,Urine Negative (Negative); Color,Urine Yellow; Glucose,Urine (UA) Negative (Negative); Ketones,Urine Negative (Negative); Leukocyte Esterase,Urine Trace (Negative); Mucus,Urine Moderate /hpf; Nitrite,Urine Negative (Negative); PH, Urine 5.5 (5.0-8.0); Protein,Urine Trace (Negative); RBC,Urine <1 /hpf (0-5); Specific Gravity,Urine 1.028 (1.001-1.035); Squamous Epithelial Cell,Urine 2 /hpf (0-4); WBC,Urine 1 /hpf (0-5)
--- NOTE | 2023-11-23 20:36 | ED ---
General Adult HPI - General Chief complaint: Dizziness Stated complaint: Pain in R shoulder, dizziness Time Seen by Provider: 11/23/23 18:07 Source: patient Mode of arrival: ambulatory Limitations: no limitations - History of Present Illness Initial comments: This patient is a 28-year-old woman who presents to have evaluation of pain that goes to the right upper back and right shoulder when she takes a deep breath. The patient notes that she had gone to urgent care to be seen about this and they directed her to come to the emergency department. -: hour(s) Location: chest, back Radiation: other (Shoulder) Severity scale (1-10): 10 Quality: stabbing, sharp Consistency: intermittent Improves with: none Worsens with: other (Deep breath) Associated Symptoms: denies other symptoms - Related Data Home Medications Medication Instructions Recorded Confirmed Vit No.179/Iron/Folic 1 tab PO DAILY 02/09/23 03/26/23 [ Tablet] Previous Rx's Medication Instructions Recorded Albuterol Inhaler [Ventolin Hfa 1 - 2 puff INHALATION Q6H PRN #1 09/17/23 Inhaler] each methylPREDNISolone Dose Pack 4 mg PO DIRECTED #21 tab 09/17/23 [Medrol Dose Pack] predniSONE [Deltasone] 40 mg PO DAILY 5 Days #10 tab 09/17/23 Allergies Allergy/AdvReac Type Severity Reaction Status Date / Time No Known Allergies Allergy Verified 10/02/23 21:26 Review of Systems ROS Statement: Those systems with pertinent positive or pertinent negative responses have been documented in the HPI. ROS Other: All systems not noted in ROS Statement are negative. Constitutional: Denies: fever, chills Respiratory: Denies: cough, dyspnea Cardiovascular: Reports: chest pain. Denies: palpitations, edema Gastrointestinal: Denies: abdominal pain, vomiting, diarrhea Genitourinary: Denies: dysuria, frequency, hematuria, discharge Musculoskeletal: Denies: back pain Skin: Denies: rash Neurological: Denies: headache, weakness, numbness Past Medical History Past Medical History: Asthma Additional Past Medical History / Comment(s): ADHD. Patient had an upper endoscopy for a piece of stuck steak. Past obstetrical history: She has had 5 spontaneous vaginal deliveries 7 lbs. 0 oz. and 7 lbs. 4 oz. and she has had 2 spontaneous miscarriages, History of Any Multi-Drug Resistant Organisms: None Reported Past Surgical History: Orthopedic Surgery, Tonsillectomy Additional Past Surgical History / Comment(s): right knee surgery Past Anesthesia/Blood Transfusion Reactions: No Reported Reaction Past Psychological History: ADD/ADHD, Anxiety, Depression Smoking Status: Current every day smoker Past Alcohol Use History: None Reported, Rare Past Drug Use History: Marijuana - Past Family History Mother Family Medical History: No Reported History General Exam Limitations: no limitations General appearance: alert, in no apparent distress Head exam: Present: atraumatic, normocephalic Eye exam: Present: normal appearance. Absent: scleral icterus, conjunctival injection ENT exam: Present: normal oropharynx Neck exam: Present: normal inspection Respiratory exam: Present: normal lung sounds bilaterally. Absent: respiratory distress, wheezes, rales, rhonchi, stridor, accessory muscle use Cardiovascular Exam: Present: regular rate, normal rhythm, normal heart sounds. Absent: systolic murmur, diastolic murmur, rubs, gallop GI/Abdominal exam: Present: soft. Absent: distended, tenderness, guarding, rebound, rigid, mass Extremities exam: Present: normal inspection, normal capillary refill. Absent: pedal edema, calf tenderness Back exam: Present: normal inspection. Absent: CVA tenderness (R), CVA tenderness (L) Neurological exam: Present: alert Skin exam: Present: warm, dry, intact, normal color. Absent: rash Course Vital Signs 11/23/23 11/23/23 11/23/23 17:01 20:49 21:54 Temperature 98.2 F Pulse Rate 92 70 65 Respiratory 20 18 18 Rate Blood Pressure 126/79 119/68 112/64 O2 Sat by Pulse 98 98 99 Oximetry Medical Decision Making - Medical Decision Making Patient is a 28-year-old woman presenting with pleuritic pain to the right upper chest and back. The patient's workup does reveal that D-dimer is 0.62. This is borderline positive. I discussed the results with the patient, and I had ordered CT scan. After discussion of risks, benefits, indications, the patient stated that she did not want radiation exposure for her fetus. She did request analgesic which gave good result and she states she will return if things are any worse or if there is no improvement., At this point patient not manifesting any respiratory distress. Further on the exam there is no evidence of DVT. She will have close follow-up and again will return if symptoms persist or any new symptoms develop. Was pt. sent in by a medical professional or institution (NAYELY Lugo, SEATING AND MOBILITY TECHNOLOGIST, urgent care, hospital, or longterm...) When possible be specific @ -Patient was directed here from urgent care for further questions related to pleuritic chest pain Did you speak to anyone other than the patient for history (EMS, parent, family, police, friend...)? What history was obtained from this source @ -[No] Did you review nursing and triage notes (agree or disagree)? Why? @ -[I reviewed and agree with nursing and triage notes] Were old charts reviewed (outside hosp., previous admission, EMS record, old EKG, old radiological studies, urgent care reports/EKG's, longterm records)? Report findings @ -[No old charts were reviewed] Differential Diagnosis (chest pain, altered mental status, abdominal pain women, abdominal pain men, vaginal bleeding, weakness, fever, dyspnea, syncope, headache, dizziness, GI bleed, back pain, seizure, CVA, palpatations, mental health, musculoskeletal)? @ -[Differential Chest Pain: Stable Angina, Unstable Angina, STEMI, NSTEMI Aortic Dissection, Pneumothorax, Musculoskeletal, Esophageal Spasm GERD, Cholecystitis, Pancreatitis, Zoster, this is not meant to be an all-inclusive list. EKG interpreted by me (3pts min.). @ -[As above] X-rays interpreted by me (1pt min.). @ -[None done] CT interpreted by me (1pt min.). @ -[None done] U/S interpreted by me (1pt. min.). @ -[None done] What testing was considered but not performed or refused? (CT, X-rays, U/S, labs)? Why? @ -[CT scan had been ordered for possible PE, see the above discussion What meds were considered but not given or refused? Why? @ -[None] Did you discuss the management of the patient with other professionals (professionals i.e. NAYELY Lugo, SEATING AND MOBILITY TECHNOLOGIST, lab, RT, psych nurse, sexual assault social worker, tennis ball cover cementer, teacher, senior officer, housing case manager)? Give summary @ -[No] Was smoking cessation discussed for >3mins.? @ -[No] Was critical care preformed (if so, how long)? @ -[No] Were there social determinants of health that impacted care today? How? (Homelessness, low income, unemployed, alcoholism, drug addiction, transportation, low edu. Level, literacy, decrease access to med. care, usp, rehab)? @ -[No] Was there de-escalation of care discussed even if they declined (Discuss DNR or withdrawal of care, Hospice)? DNR status @ -[No] What co-morbidities impacted this encounter? (DM, HTN, Smoking, COPD, CAD, Cancer, CVA, ARF, Chemo, Hep., AIDS, mental health diagnosis, sleep apnea, morbid obesity)? @ -[ Was patient admitted / discharged? Hospital course, mention meds given and route, prescriptions, significant lab abnormalities, going to OR and other pertinent info. @ -[As above Undiagnosed new problem with uncertain prognosis? @ -[No] Drug Therapy requiring intensive monitoring for toxicity (Heparin, Nitro, Insulin, Cardizem)? @ -[No] Were any procedures done? @ -[No] Diagnosis/symptom? @ -[Pleuritic chest pain Acute, or Chronic, or Acute on Chronic? @ -[Acute Uncomplicated (without systemic symptoms) or Complicated (systemic symptoms)? @ -[Uncomplicated Side effects of treatment? @ -[No] Exacerbation, Progression, or Severe Exacerbation? @ -[No] Poses a threat to life or bodily function? How? (Chest pain, [place], [place], pneumonia, PE, COPD, DKA, ARF, appy, cholecystitis, CVA, Diverticulitis, Homicidal, Suicidal, threat to staff... and all critical care pts) @ -[There is low likelihood at this point but requires close follow-up - Lab Data Result diagrams: 11/23/23 17:06 11/23/23 17:06 Lab Results 11/23/23 11/23/23 11/23/23 Range/Units 17:06 17:06 17:06 WBC 13.2 H (3.8-10.6) k/uL RBC 4.37 (3.80-5.40) m/uL Hgb 13.7 (11.4-16.0) gm/dL Hct 40.3 (34.0-46.0) % MCV 92.3 (80.0-100.0) fL MCH 31.3 (25.0-35.0) pg MCHC 33.9 (31.0-37.0) g/dL RDW 12.5 (11.5-15.5) % Plt Count 271 (150-450) k/uL MPV 8.2 Neutrophils % 54 % Lymphocytes % 36 % Monocytes % 4 % Eosinophils % 3 % Basophils % 1 % Neutrophils # 7.2 (1.3-7.7) k/uL Lymphocytes # 4.8 (1.0-4.8) k/uL Monocytes # 0.6 (0-1.0) k/uL Eosinophils # 0.3 (0-0.7) k/uL Basophils # 0.1 (0-0.2) k/uL PT 11.7 (10.0-12.5) sec INR 1.1 (<1.2) D-Dimer 0.69 H (<0.60) mg/L FEU Sodium 140 (137-145) mmol/L Potassium 3.5 (3.5-5.1) mmol/L Chloride 110 H (98-107) mmol/L Carbon Dioxide 21 L (22-30) mmol/L Anion Gap 9 mmol/L BUN 9 (7-17) mg/dL Creatinine 0.60 (0.52-1.04) mg/dL Est GFR (CKD-EPI)AfAm >90 (>60 ml/min/1.73 sqM) Est GFR (CKD-EPI)NonAf >90 (>60 ml/min/1.73 sqM) Glucose 108 H (74-99) mg/dL Calcium 9.3 (8.4-10.2) mg/dL Total Bilirubin 1.4 H (0.2-1.3) mg/dL AST 16 (14-36) U/L ALT 14 (4-34) U/L Alkaline Phosphatase 57 (38-126) U/L Troponin I (0.000-0.034) ng/mL Total Protein 6.9 (6.3-8.2) g/dL Albumin 4.4 (3.5-5.0) g/dL HCG, Quant mIU/mL Urine Color Urine Appearance (Clear) Urine pH (5.0-8.0) Ur Specific Wiley (1.001-1.035) Urine Protein (Negative) Urine Glucose (UA) (Negative) Urine Ketones (Negative) Urine Blood (Negative) Urine Nitrite (Negative) Urine Bilirubin (Negative) Urine Urobilinogen (<2.0) mg/dL Ur Leukocyte Esterase (Negative) Urine RBC (0-5) /hpf Urine WBC (0-5) /hpf Ur Squamous Epith Cells (0-4) /hpf Urine Mucus (None) /hpf Urine HCG, Qual (Not Detectd) 11/23/23 11/23/23 11/23/23 Range/Units 17:06 17:06 18:15 WBC (3.8-10.6) k/uL RBC (3.80-5.40) m/uL Hgb (11.4-16.0) gm/dL Hct (34.0-46.0) % MCV (80.0-100.0) fL MCH (25.0-35.0) pg MCHC (31.0-37.0) g/dL RDW (11.5-15.5) % Plt Count (150-450) k/uL MPV Neutrophils % % Lymphocytes % % Monocytes % % Eosinophils % % Basophils % % Neutrophils # (1.3-7.7) k/uL Lymphocytes # (1.0-4.8) k/uL Monocytes # (0-1.0) k/uL Eosinophils # (0-0.7) k/uL Basophils # (0-0.2) k/uL PT (10.0-12.5) sec INR (<1.2) D-Dimer (<0.60) mg/L FEU Sodium (137-145) mmol/L Potassium (3.5-5.1) mmol/L Chloride (98-107) mmol/L Carbon Dioxide (22-30) mmol/L Anion Gap mmol/L BUN (7-17) mg/dL Creatinine (0.52-1.04) mg/dL Est GFR (CKD-EPI)AfAm (>60 ml/min/1.73 sqM) Est GFR (CKD-EPI)NonAf (>60 ml/min/1.73 sqM) Glucose (74-99) mg/dL Calcium (8.4-10.2) mg/dL Total Bilirubin (0.2-1.3) mg/dL AST (14-36) U/L ALT (4-34) U/L Alkaline Phosphatase (38-126) U/L Troponin I <0.012 (0.000-0.034) ng/mL Total Protein (6.3-8.2) g/dL Albumin (3.5-5.0) g/dL HCG, Quant 3012.6 mIU/mL Urine Color Yellow Urine Appearance Clear (Clear) Urine pH 5.5 (5.0-8.0) Ur Specific Wiley 1.028 (1.001-1.035) Urine Protein Trace H (Negative) Urine Glucose (UA) Negative (Negative) Urine Ketones Negative (Negative) Urine Blood Negative (Negative) Urine Nitrite Negative (Negative) Urine Bilirubin Negative (Negative) Urine Urobilinogen 2.0 (<2.0) mg/dL Ur Leukocyte Esterase Trace H (Negative) Urine RBC <1 (0-5) /hpf Urine WBC 1 (0-5) /hpf Ur Squamous Epith Cells 2 (0-4) /hpf Urine Mucus Moderate H (None) /hpf Urine HCG, Qual (Not Detectd) 11/23/23 Range/Units 18:15 WBC (3.8-10.6) k/uL RBC (3.80-5.40) m/uL Hgb (11.4-16.0) gm/dL Hct (34.0-46.0) % MCV (80.0-100.0) fL MCH (25.0-35.0) pg MCHC (31.0-37.0) g/dL RDW (11.5-15.5) % Plt Count (150-450) k/uL MPV Neutrophils % % Lymphocytes % % Monocytes % % Eosinophils % % Basophils % % Neutrophils # (1.3-7.7) k/uL Lymphocytes # (1.0-4.8) k/uL Monocytes # (0-1.0) k/uL Eosinophils # (0-0.7) k/uL Basophils # (0-0.2) k/uL PT (10.0-12.5) sec INR (<1.2) D-Dimer (<0.60) mg/L FEU Sodium (137-145) mmol/L Potassium (3.5-5.1) mmol/L Chloride (98-107) mmol/L Carbon Dioxide (22-30) mmol/L Anion Gap mmol/L BUN (7-17) mg/dL Creatinine (0.52-1.04) mg/dL Est GFR (CKD-EPI)AfAm (>60 ml/min/1.73 sqM) Est GFR (CKD-EPI)NonAf (>60 ml/min/1.73 sqM) Glucose (74-99) mg/dL Calcium (8.4-10.2) mg/dL Total Bilirubin (0.2-1.3) mg/dL AST (14-36) U/L ALT (4-34) U/L Alkaline Phosphatase (38-126) U/L Troponin I (0.000-0.034) ng/mL Total Protein (6.3-8.2) g/dL Albumin (3.5-5.0) g/dL HCG, Quant mIU/mL Urine Color Urine Appearance (Clear) Urine pH (5.0-8.0) Ur Specific Wiley (1.001-1.035) Urine Protein (Negative) Urine Glucose (UA) (Negative) Urine Ketones (Negative) Urine Blood (Negative) Urine Nitrite (Negative) Urine Bilirubin (Negative) Urine Urobilinogen (<2.0) mg/dL Ur Leukocyte Esterase (Negative) Urine RBC (0-5) /hpf Urine WBC (0-5) /hpf Ur Squamous Epith Cells (0-4) /hpf Urine Mucus (None) /hpf Urine HCG, Qual Detected (Not Detectd) Disposition Clinical Impression: Pleuritis, Disposition: HOME SELF-CARE Condition: Good Instructions (If sedation given, give patient instructions): (ED), Pleurisy (ED) Is patient prescribed a controlled substance at d/c from ED?: No Referrals: None,Stated [Primary Care Provider] - 1-2 days
[2023-11-23] MEDS: SODIUM CHLORIDE 0.9% 1,000 ML IV ONE (20:45)
[2023-11-23 21:11] VITALS: RESP 18
[2023-11-23] MEDS: ACETAMINOPHEN TAB 325 MG TAB PO STA (21:17)
[2023-11-23] MEDS: MORPHINE SULFATE 4 MG/ML SYRINGE IVP STA (21:50)
[2023-11-23] MEDS: MORPHINE SULFATE 4 MG/ML SYRINGE IV STA (21:55)
[2023-11-23 21:58] VITALS: BP 112/64; PULSE 65
== END 2023-11-23 22:04 | disposition home or self-care (01) ==
LOC: EC 16:58
DX: O26.899 Other specified pregnancy related conditions, unspecified trimester (principal); R07.81 Pleurodynia; O99.330 Smoking (tobacco) complicating pregnancy, unspecified trimester; F17.200 Nicotine dependence, unspecified, uncomplicated; Z3A.00 Weeks of gestation of pregnancy not specified
CPT/HCPCS: 36415; 93005; 85379; 80053; 84484; 85025; 85610; 81001; 81025; 84702; 99284; 96374; 96361; J2270

== ENCOUNTER 2024-01-06 17:52 | Emergency (ER) | payer BC, OTHER ==
[2024-01-06 18:16] VITALS: TEMP 97.9
[2024-01-06 18:54] LABS: Basophils # (A) 0.1 k/uL (0-0.2); Basophils % (A) 1 %; Eosinophils # (A) 0.6 k/uL (0-0.7); Eosinophils % (A) 6 %; HCT 41.5 % (34.0-46.0); HGB 13.2 gm/dL (11.4-16.0); Lymphocytes # (A) 2.5 k/uL (1.0-4.8); Lymphocytes % (A) 23 %; MCH 30.4 pg (25.0-35.0); MCHC 31.9 g/dL (31.0-37.0); MCV 95.3 fL (80.0-100.0); Monocytes # (A) 0.6 k/uL (0-1.0); Monocytes % (A) 6 %; Neutrophils % (A) 64 %; Platelet Count 256 k/uL (150-450); RBC 4.35 m/uL (3.80-5.40); RDW 12.4 % (11.5-15.5); WBC 10.9 k/uL (3.8-10.6)
[2024-01-06 19:04] LABS: Appearance,Urine Clear (Clear); Bilirubin,Urine Negative (Negative); Blood,Urine Negative (Negative); Color,Urine Light Yellow; Glucose,Urine (UA) Negative (Negative); Ketones,Urine Negative (Negative); Leukocyte Esterase,Urine Negative (Negative); Nitrite,Urine Negative (Negative); PH, Urine 7.5 (5.0-8.0); Protein,Urine Negative (Negative); Urobilinogen,Urine <2.0 mg/dL (<2.0)
[2024-01-06 19:06] LABS: ALT 9 U/L (4-34); AST 13 U/L (14-36); African American GFR (CKD) >90 (>60 ml/min/1.73 sqM); Albumin 3.8 g/dL (3.5-5.0); Alkaline Phosphatase 47 U/L (38-126); Anion Gap 4 mmol/L; Blood Urea Nitrogen 10 mg/dL (7-17); Calcium 9.2 mg/dL (8.4-10.2); Carbon Dioxide 20 mmol/L (22-30); Chloride 111 mmol/L (98-107); Glucose 89 mg/dL (74-99); Non-African American GFR(CKD) >90 (>60 ml/min/1.73 sqM); Potassium 4.2 mmol/L (3.5-5.1); Sodium 135 mmol/L (137-145); Total Bilirubin 0.8 mg/dL (0.2-1.3); Total Protein 6.2 g/dL (6.3-8.2)
--- NOTE | 2024-01-06 20:27 | ED ---
General Adult HPI - General Source: patient Mode of arrival: EMS Limitations: no limitations <Nel Contreras - Last Filed: 01/06/24 20:27> <Nehemiah Mckinley - Last Filed: 01/16/24 20:55> - General Chief complaint: Dizziness Stated complaint: vertigo Time Seen by Provider: 01/06/24 20:27 - History of Present Illness Initial comments: 28-year-old female presenting with chief complaint of dizziness and presyncopal episodes. This has happened about 3 times today. She states that when she goes to stand up her vision will "blackout". Patient is currently about 13 weeks . She is having no bleeding or abdominal pain. (Nel Contreras) - Related Data Home Medications Medication Instructions Recorded Confirmed Vit No.179/Iron/Folic 1 tab PO DAILY 02/09/23 03/26/23 [ Tablet] Previous Rx's Medication Instructions Recorded Albuterol Inhaler [Ventolin Hfa 1 - 2 puff INHALATION Q6H PRN #1 09/17/23 Inhaler] each methylPREDNISolone Dose Pack 4 mg PO DIRECTED #21 tab 09/17/23 [Medrol Dose Pack] predniSONE [Deltasone] 40 mg PO DAILY 5 Days #10 tab 09/17/23 Allergies Allergy/AdvReac Type Severity Reaction Status Date / Time No Known Allergies Allergy Verified 10/02/23 21:26 Review of Systems ROS Other: All systems not noted in ROS Statement are negative. <Nel Contreras - Last Filed: 01/06/24 20:27> ROS Other: All systems not noted in ROS Statement are negative. <Nehemiah Mckinley - Last Filed: 01/16/24 20:55> ROS Statement: Those systems with pertinent positive or pertinent negative responses have been documented in the HPI. Past Medical History Past Medical History: Asthma Additional Past Medical History / Comment(s): ADHD. Patient had an upper endoscopy for a piece of stuck steak. Past obstetrical history: She has had 5 spontaneous vaginal deliveries 7 lbs. 0 oz. and 7 lbs. 4 oz. and she has had 2 spontaneous miscarriages, History of Any Multi-Drug Resistant Organisms: None Reported Past Surgical History: Orthopedic Surgery, Tonsillectomy Additional Past Surgical History / Comment(s): right knee surgery Past Anesthesia/Blood Transfusion Reactions: No Reported Reaction Past Psychological History: ADD/ADHD, Anxiety, Depression Smoking Status: Current every day smoker Past Alcohol Use History: None Reported, Rare Past Drug Use History: Marijuana - Past Family History Mother Family Medical History: No Reported History <Nel Contreras - Last Filed: 01/06/24 20:27> General Exam Limitations: no limitations <Nel Contreras - Last Filed: 01/06/24 20:27> Limitations: no limitations General appearance: alert, in no apparent distress Head exam: Present: atraumatic, normocephalic Eye exam: Present: normal appearance. Absent: scleral icterus, conjunctival injection ENT exam: Present: normal oropharynx Neck exam: Present: normal inspection Respiratory exam: Present: normal lung sounds bilaterally. Absent: respiratory distress, wheezes, rales, rhonchi, stridor, accessory muscle use Cardiovascular Exam: Present: regular rate, normal rhythm, normal heart sounds. Absent: systolic murmur, diastolic murmur, rubs, gallop GI/Abdominal exam: Present: soft. Absent: distended, tenderness, guarding, rebound, rigid, mass Extremities exam: Present: normal inspection, normal capillary refill. Absent: pedal edema, calf tenderness Back exam: Present: normal inspection. Absent: CVA tenderness (R), CVA tenderness (L) Neurological exam: Present: alert Skin exam: Present: warm, dry, intact, normal color. Absent: rash <Nehemiah Mckinley - Last Filed: 01/16/24 20:55> - General Exam Comments Initial Comments: Visual Physical Exam Vital signs reviewed General: Well-appearing, nontoxic, no acute distress. Head: Normocephalic, atraumatic Eyes: PERRLA, EOMI ENT: Airway patent Chest: Nonlabored breathing Skin: No visual rash, normal skin tone Neuro: Alert and oriented 3 Musculoskeletal: No gross abnormalities (Nel Contreras) Course Vital Signs 01/06/24 01/06/24 01/06/24 18:13 22:00 22:19 Temperature 97.9 F Pulse Rate 79 72 Pulse Rate [ 72 Sitting] Pulse Rate [ 72 Standing] Pulse Rate [ 74 Supine] Respiratory 20 18 Rate Blood Pressure 109/65 109/74 Blood Pressure 120/80 [Sitting] Blood Pressure 109/74 [Standing] Blood Pressure 103/69 [Supine] O2 Sat by Pulse 98 98 Oximetry 01/06/24 23:00 Temperature Pulse Rate 75 Pulse Rate [ Sitting] Pulse Rate [ Standing] Pulse Rate [ Supine] Respiratory 16 Rate Blood Pressure 105/60 Blood Pressure [Sitting] Blood Pressure [Standing] Blood Pressure [Supine] O2 Sat by Pulse 99 Oximetry EKG Findings - EKG Results: EKG: interpreted by TEENA HOWARD, sinus rhythm (rate 76 bpm), normal axis, normal QRS, normal ST/T - DE, Pacemaker, Normal: Normal tracing: normal tracing <Nehemiah Mckinley - Last Filed: 01/16/24 20:55> Medical Decision Making - Lab Data Result diagrams: 01/06/24 18:49 01/06/24 18:49 <Nel Contreras - Last Filed: 01/06/24 20:27> - Lab Data Result diagrams: 01/06/24 18:49 01/06/24 18:49 <Nehemiah Mckinley - Last Filed: 01/16/24 20:55> - Medical Decision Making I performed the quick note portion of this visit, electronically signed Nel Contreras PA-C (Nel Contreras) Was pt. sent in by a medical professional or institution (NAYELY Lugo, CARE COORDINATION MANAGER, urgent care, hospital, or custodial...) When possible be specific @ -[No] Did you speak to anyone other than the patient for history (EMS, parent, family, police, friend...)? What history was obtained from this source @ -[No] Did you review nursing and triage notes (agree or disagree)? Why? @ -[I reviewed and agree with nursing and triage notes] Were old charts reviewed (outside hosp., previous admission, EMS record, old EKG, old radiological studies, urgent care reports/EKG's, custodial records)? Report findings @ -[No old charts were reviewed] Differential Diagnosis (chest pain, altered mental status, abdominal pain women, abdominal pain men, vaginal bleeding, weakness, fever, dyspnea, syncope, headache, dizziness, GI bleed, back pain, seizure, CVA, palpatations, mental health, musculoskeletal)? @ -[Differential Dizziness: Benign paroxysmal positional Vertigo, Menieres disease, otitis media, acoustic neuroma, vertebrobasilar insufficiency, cerebellar stroke, encephalitis, hypovolemic, arrhythmia, coronary artery syndrome, anemia, this is not meant to be an all-inclusive list EKG interpreted by me (3pts min.). @ -[Interpreted as above] X-rays interpreted by me (1pt min.). @ -[None done] CT interpreted by me (1pt min.). @ -[None done] U/S interpreted by me (1pt. min.). @ -[None done] What testing was considered but not performed or refused? (CT, X-rays, U/S, labs)? Why? @ -[None] What meds were considered but not given or refused? Why? @ -[None] Did you discuss the management of the patient with other professionals (professionals i.e. , PA, CARE COORDINATION MANAGER, lab, RT, psych nurse, social work supervisor, eap counselor, teacher, title officer, case management manager)? Give summary @ -[No] Was smoking cessation discussed for >3mins.? @ -[No] Was critical care preformed (if so, how long)? @ -[No] Were there social determinants of health that impacted care today? How? (Homelessness, low income, unemployed, alcoholism, drug addiction, lazo sportation, low edu. Level, literacy, decrease access to med. care, [facility] [facility], rehab)? @ -[No] Was there de-escalation of care discussed even if they declined (Discuss DNR or withdrawal of care, Hospice)? DNR status @ -[No] What co-morbidities impacted this encounter? (DM, HTN, Smoking, COPD, CAD, Canc er, CVA, ARF, Chemo, Hep., AIDS, mental health diagnosis, sleep apnea, morbid obesity)? @ -[None] Was patient admitted / discharged? Hospital course, mention meds given and route, prescriptions, significant lab abnormalities, going to OR and other pertinent info. @ -[hospital course] Undiagnosed new problem with uncertain prognosis? @ -[No] Drug Therapy requiring intensive monitoring for toxicity (Heparin, Nitro, Insulin, Cardizem)? @ -[No] Were any procedures done? @ -[No] Diagnosis/symptom? @ -[ Near syncopal episode Mild dehydration Acute, or Chronic, or Acute on Chronic? @ -Acute Uncomplicated (without systemic symptoms) or Complicated (systemic symptoms)? @ -[Uncomplicated Side effects of treatment? @ -[No] Exacerbation, Progression, or Severe Exacerbation? @ -[No] Poses a threat to life or bodily function? How? (Chest pain, USA, [place], pneumonia, PE, COPD, DKA, ARF, appy, cholecystitis, CVA, Diverticulitis, Homicidal, Suicidal, threat to staff... and all critical care pts) @ -[No] (ElíasNehemiah) - Lab Data Lab Results 01/06/24 01/06/24 01/06/24 Range/Units 18:49 18:49 18:58 WBC 10.9 H (3.8-10.6) k/uL RBC 4.35 (3.80-5.40) m/uL Hgb 13.2 (11.4-16.0) gm/dL Hct 41.5 (34.0-46.0) % MCV 95.3 (80.0-100.0) fL MCH 30.4 (25.0-35.0) pg MCHC 31.9 (31.0-37.0) g/dL RDW 12.4 (11.5-15.5) % Plt Count 256 (150-450) k/uL MPV 8.0 Neutrophils % 64 % Lymphocytes % 23 % Monocytes % 6 % Eosinophils % 6 % Basophils % 1 % Neutrophils # 7.0 (1.3-7.7) k/uL Lymphocytes # 2.5 (1.0-4.8) k/uL Monocytes # 0.6 (0-1.0) k/uL Eosinophils # 0.6 (0-0.7) k/uL Basophils # 0.1 (0-0.2) k/uL Sodium 135 L (137-145) mmol/L Potassium 4.2 (3.5-5.1) mmol/L Chloride 111 H (98-107) mmol/L Carbon Dioxide 20 L (22-30) mmol/L Anion Gap 4 mmol/L BUN 10 (7-17) mg/dL Creatinine 0.64 (0.52-1.04) mg/dL Est GFR (CKD-EPI)AfAm >90 (>60 ml/min/1.73 sqM) Est GFR (CKD-EPI)NonAf >90 (>60 ml/min/1.73 sqM) Glucose 89 (74-99) mg/dL Plasma Lactic Acid Bernabe (0.7-2.0) mmol/L Calcium 9.2 (8.4-10.2) mg/dL Total Bilirubin 0.8 (0.2-1.3) mg/dL AST 13 L (14-36) U/L ALT 9 (4-34) U/L Alkaline Phosphatase 47 (38-126) U/L Total Protein 6.2 L (6.3-8.2) g/dL Albumin 3.8 (3.5-5.0) g/dL HCG, Quant 506739.0 mIU/mL Urine Color Light Yellow Urine Appearance Clear (Clear) Urine pH 7.5 (5.0-8.0) Ur Specific [place] 1.020 (1.001-1.035) Urine Protein Negative (Negative) Urine Glucose (UA) Negative (Negative) Urine Ketones Negative (Negative) Urine Blood Negative (Negative) Urine Nitrite Negative (Negative) Urine Bilirubin Negative (Negative) Urine Urobilinogen <2.0 (<2.0) mg/dL Ur Leukocyte Esterase Negative (Negative) 01/06/24 Range/Units 22:18 WBC (3.8-10.6) k/uL RBC (3.80-5.40) m/uL Hgb (11.4-16.0) gm/dL Hct (34.0-46.0) % MCV (80.0-100.0) fL MCH (25.0-35.0) pg MCHC (31.0-37.0) g/dL RDW (11.5-15.5) % Plt Count (150-450) k/uL MPV Neutrophils % % Lymphocytes % % Monocytes % % Eosinophils % % Basophils % % Neutrophils # (1.3-7.7) k/uL Lymphocytes # (1.0-4.8) k/uL Monocytes # (0-1.0) k/uL Eosinophils # (0-0.7) k/uL Basophils # (0-0.2) k/uL Sodium (137-145) mmol/L Potassium (3.5-5.1) mmol/L Chloride (98-107) mmol/L Carbon Dioxide (22-30) mmol/L Anion Gap mmol/L BUN (7-17) mg/dL Creatinine (0.52-1.04) mg/dL Est GFR (CKD-EPI)AfAm (>60 ml/min/1.73 sqM) Est GFR (CKD-EPI)NonAf (>60 ml/min/1.73 sqM) Glucose (74-99) mg/dL Plasma Lactic Acid Bernabe 0.6 L (0.7-2.0) mmol/L Calcium (8.4-10.2) mg/dL Total Bilirubin (0.2-1.3) mg/dL AST (14-36) U/L ALT (4-34) U/L Alkaline Phosphatase (38-126) U/L Total Protein (6.3-8.2) g/dL Albumin (3.5-5.0) g/dL HCG, Quant mIU/mL Urine Color Urine Appearance (Clear) Urine pH (5.0-8.0) Ur Specific [place] (1.001-1.035) Urine Protein (Negative) Urine Glucose (UA) (Negative) Urine Ketones (Negative) Urine Blood (Negative) Urine Nitrite (Negative) Urine Bilirubin (Negative) Urine Urobilinogen (<2.0) mg/dL Ur Leukocyte Esterase (Negative) Disposition <Nel Contreras - Last Filed: 01/06/24 20:27> Is patient prescribed a controlled substance at d/c from ED?: No <Nehemiah Mckinley - Last Filed: 01/16/24 20:55> Clinical Impression: Near syncope, Dehydration Disposition: HOME SELF-CARE Condition: Good Instructions (If sedation given, give patient instructions): Dehydration (ED), Near Syncope (ED) Referrals: None,Stated [Primary Care Provider] - 1-2 days Carlitos Ahmadi MD [REFERRING] - 1-2 days Christopher Galvez MD [REFERRING] - 1-2 days
[2024-01-06] MEDS: SODIUM CHLORIDE 0.9% 1,000 ML IV STA (22:11)
[2024-01-06 23:17] VITALS: BP 105/60; PULSE 75; RESP 16
== END 2024-01-06 23:38 | disposition home or self-care (01) ==
LOC: EC 17:52
DX: O99.891 Other specified diseases and conditions complicating pregnancy (principal); O99.281 Endocrine, nutritional and metabolic diseases complicating pregnancy, first trimester; E86.0 Dehydration; R55 Syncope and collapse; O99.331 Smoking (tobacco) complicating pregnancy, first trimester; F17.200 Nicotine dependence, unspecified, uncomplicated; Z3A.13 13 weeks gestation of pregnancy
CPT/HCPCS: 36415; 80053; 81003; 83605; 84702; 85025; 93005; 96360; 99285

== ENCOUNTER 2024-03-07 10:17 | Outpatient (CLI) | payer BC, OTHER ==
[2024-03-07 10:35] LABS: Glucose,Whole Blood 78 mg/dL (70-110)
[2024-03-07] MEDS: ACETAMINOPHEN TAB 500 MG TAB PO STA (11:18)
[2024-03-07 11:19] LABS: Basophils # (A) 0.1 k/uL (0-0.2); Basophils % (A) 0 %; Eosinophils # (A) 0.4 k/uL (0-0.7); Eosinophils % (A) 3 %; HCT 40.9 % (34.0-46.0); HGB 13.6 gm/dL (11.4-16.0); Lymphocytes # (A) 2.1 k/uL (1.0-4.8); Lymphocytes % (A) 16 %; MCH 31.4 pg (25.0-35.0); MCHC 33.2 g/dL (31.0-37.0); MCV 94.4 fL (80.0-100.0); Monocytes # (A) 0.4 k/uL (0-1.0); Monocytes % (A) 3 %; Neutrophils # (A) 10.1 k/uL (1.3-7.7); Neutrophils % (A) 77 %; Platelet Count 257 k/uL (150-450); RBC 4.33 m/uL (3.80-5.40); RDW 12.2 % (11.5-15.5); WBC 13.2 k/uL (3.8-10.6)
[2024-03-07] MEDS: LACTATED RINGERS 1,000 ML IV ONE ×2 (11:20→12:47)
[2024-03-07 11:42] LABS: ALT 7 U/L (4-34); AST 16 U/L (14-36); African American GFR (CKD) >90 (>60 ml/min/1.73 sqM); Albumin 3.7 g/dL (3.5-5.0); Alkaline Phosphatase 61 U/L (38-126); Anion Gap 8 mmol/L; Blood Urea Nitrogen 6 mg/dL (7-17); Calcium 9.1 mg/dL (8.4-10.2); Carbon Dioxide 18 mmol/L (22-30); Chloride 108 mmol/L (98-107); Glucose 74 mg/dL (74-99); Non-African American GFR(CKD) >90 (>60 ml/min/1.73 sqM); Potassium 4.2 mmol/L (3.5-5.1); Sodium 134 mmol/L (137-145); Total Protein 6.4 g/dL (6.3-8.2)
[2024-03-07 12:19] LABS: Appearance,Urine Clear (Clear); Bilirubin,Urine Negative (Negative); Blood,Urine Negative (Negative); Color,Urine Colorless; Glucose,Urine (UA) Negative (Negative); Ketones,Urine Negative (Negative); Leukocyte Esterase,Urine Trace (Negative); Mucus,Urine Rare /hpf; Nitrite,Urine Negative (Negative); PH, Urine 6.5 (5.0-8.0); Protein,Urine Negative (Negative); RBC,Urine 1 /hpf (0-5); Specific Gravity,Urine 1.009 (1.001-1.035); Squamous Epithelial Cell,Urine 2 /hpf (0-4); Urobilinogen,Urine <2.0 mg/dL (<2.0); WBC,Urine 3 /hpf (0-5)
[2024-03-07 12:51] VITALS: BP 126/69; PULSE 94; RESP 16; TEMP 97.1
--- NOTE | 2024-04-27 10:28 | P.MSEPDOC ---
Presenting Problems - Arrival Data Date of Arrival on Unit: 03/07/24 Time of Arrival on Unit: 10:17 Mode of Transport: Ambulatory - Complaint OB-Reason for Admission/Chief Complaint: Dizziness Comment: Pt arrives to triage c/o dizziness, nausea, "fuzzy" feeling in head that has developed into a headache. Pt states she had to use her rescue inhaler this morning because she felt as if she couldn't catch her breath. Pt states yesterday at approx 1630 she was at work, walking, and felt "off", her vision blacked out briefly and she went home and slept. Medical History - Information : 7 Para: 6 Term: 6 - Gestational Age Gestational Age by ALEJANDRA (wks/days): 20 Weeks and 4 Days - History Complications: Smoker Review of Systems - Review of Systems Constitutional: No problems Breast: No problems ENT: Cough Cardiovascular: No problems Respiratory: No problems Gastrointestinal: No problems Genitourinary: No problems Musculoskeletal: No problems Neurological: Dizziness Skin: No problems Vital Signs - Temperature Temperature: 97.1 F Temperature Source: Temporal Artery Scan - Pulse Right Sitting Brachial Pulse Rate: 94 Pulse Assessment Method: Automatic Cuff - Respirations Respiratory Rate: 16 Oxygen Delivery Method: Room Air O2 Sat by Pulse Oximetry: 98 - Blood Pressure Right Arm Sitting Blood Pressure: 126/69 Blood Pressure Mean: 88 Blood Pressure Source: Automatic Cuff Medical Screen Scoring - Cervical Exam Membranes: Intact - Uterine Contractions Resting: Soft to palpation - Assessment - Baby A Baseline FHR: 142 Heart Rate - NICHD Category: Category I (Normal) Physician Notification - Physician Notified Physician Notified Date: 03/07/24 Physician Notified Time: 10:45 Physician: Janel Kaufman New Order Received: Yes - Notification Comment Comment: 1045:Jasbir c\\Dr. Kaufman, advsd of pts arrival to triage, , 20 4/7 weeks. Reviewed pt complaints including pts headache, dizziness, cough, loss of appetite. FHT dopplered, 142-150bpm, accuchek 78. No complications c\\. Orders rec'd for CBC, CMP, 4plex swab, IV LR 500ml bolus, followed by 100ml/hr and Tylenol 1000mg PO. 1245:Jasbir murray\\Dr. Kaufman, reviewed pts labs. Acetaminophen effective. Orders pt to be discharged home, BRAT diet, follow up as scheduled 03/08, off work today. Maternal Triage Index - Maternal Triage Index Presenting for scheduled procedure w/no complaint: No - Stat/Priority 1 Stat Priority 1: No - Urgent/Priority 2 Urgent Priority 2: No - Prompt/Priority 3 Prompt Priority 3: No - Non-Urgent/Priority 4 Non-Urgent Priority 4: Yes Criteria Met for Priority 4: 20wk, dizzy, headache Disposition - Disposition OB Disposition: Discharge to home, Written follow up instructions reviewed Discharge Date: 03/07/24 Discharge Time: 12:50 I agree with the RN Medical Screening Exam: Yes Case reviewed; plan agreed upon as documented in EMR&OBIX.: Yes Diagnosis: RELATED CONDITIONS, UNSPECIFIED, SECOND TRIMESTER
== END 2024-03-07 12:50 | disposition home or self-care (01) ==
LOC: FBPOP 10:17
PROVIDERS: ATTEND Obstetrics & Gynecology Obstetrics
CPT/HCPCS: 80053; 81001; 85025; 87636; 96360; 99214

== ENCOUNTER 2024-03-16 13:02 | Emergency (ER) | payer BC, OTHER ==
--- NOTE | 2024-03-16 13:18 | ED ---
General Adult HPI - General Chief complaint: Skin/Abscess/Foreign Body Stated complaint: Sore on R armpit Time Seen by Provider: 03/16/24 13:08 Source: patient, RN notes reviewed, old records reviewed Mode of arrival: ambulatory Limitations: no limitations - History of Present Illness Initial comments: 28-year-old female presenting with a lump in her right armpit, patient noted pain and swelling over the past 2 days. No fever. No drainage. Patient does have pain in the area with movement. - Related Data Home Medications Medication Instructions Recorded Confirmed Vit No.179/Iron/Folic 1 tab PO DAILY 02/09/23 03/07/24 [ Tablet] Previous Rx's Medication Instructions Recorded Albuterol Inhaler [Ventolin Hfa 1 - 2 puff INHALATION Q6H PRN #1 09/17/23 Inhaler] each methylPREDNISolone Dose Pack 4 mg PO DIRECTED #21 tab 09/17/23 [Medrol Dose Pack] Allergies Allergy/AdvReac Type Severity Reaction Status Date / Time No Known Allergies Allergy Verified 03/16/24 13:05 Review of Systems ROS Statement: Those systems with pertinent positive or pertinent negative responses have been documented in the HPI. ROS Other: All systems not noted in ROS Statement are negative. Past Medical History Past Medical History: Asthma Additional Past Medical History / Comment(s): ADHD. Patient had an upper endoscopy for a piece of stuck steak. Past obstetrical history: She has had 5 spontaneous vaginal deliveries 7 lbs. 0 oz. and 7 lbs. 4 oz. and she has had 2 spontaneous miscarriages, History of Any Multi-Drug Resistant Organisms: None Reported Past Surgical History: Orthopedic Surgery, Tonsillectomy Additional Past Surgical History / Comment(s): right knee surgery Past Anesthesia/Blood Transfusion Reactions: No Reported Reaction Past Psychological History: ADD/ADHD, Anxiety, Depression Smoking Status: Current every day smoker, Never smoker Past Alcohol Use History: None Reported Past Drug Use History: Marijuana - Past Family History Mother Family Medical History: No Reported History General Exam Limitations: no limitations General appearance: alert, in no apparent distress Head exam: Present: atraumatic, normocephalic Eye exam: Present: normal appearance, PERRL ENT exam: Present: normal exam Neck exam: Present: normal inspection. Absent: tenderness, meningismus Respiratory exam: Present: normal lung sounds bilaterally. Absent: respiratory distress, wheezes Cardiovascular Exam: Present: regular rate, normal rhythm GI/Abdominal exam: Present: soft, other (Gravid) Extremities exam: Present: other (Right arm. There is a subcentimeter area of s welling and tenderness in the mid armpit. There is no overlying erythema, no induration, no fluctuance. Suspect either early abscess versus swollen lymph node.) Course Vital Signs 03/16/24 13:02 Temperature 98.1 F Pulse Rate 103 H Respiratory 16 Rate Blood Pressure 109/75 O2 Sat by Pulse 97 Oximetry Medical Decision Making - Medical Decision Making Was pt. sent in by a medical professional or institution (, PA, COMIC BOOK DESIGNER, urgent care, hospital, or alf...) When possible be specific @ -No Did you speak to anyone other than the patient for history (EMS, parent, family, police, friend...)? What history was obtained from this source @ -No Did you review nursing and triage notes (agree or disagree)? Why? @ -I reviewed and agree with nursing and triage notes Were old charts reviewed (outside hosp., previous admission, EMS record, old EKG, old radiological studies, urgent care reports/EKG's, alf records)? Report findings @ -No old charts were reviewed Differential Diagnosis: folliculitis, abscess, lymphadenopathy EKG interpreted by me (3pts min.). @ -As above X-rays interpreted by me (1pt min.). @ -None done CT interpreted by me (1pt min.). @ -None done U/S interpreted by me (1pt. min.). @ -None done What testing was considered but not performed or refused? (CT, X-rays, U/S, labs)? Why? @ -None What meds were considered but not given or refused? Why? @ -None Did you discuss the management of the patient with other professionals (humera hooper i.e. , NAYELY, COMIC BOOK DESIGNER, lab, RT, psych nurse, social insurance analyst, timber selector, teacher, ambulance officer, nurse case manager)? Give summary @ -No Was smoking cessation discussed for >3mins.? @ -No Was critical care preformed (if so, how long)? @ -No Were there social determinants of health that impacted care today? How? (Homelessness, low income, unemployed, alcoholism, drug addiction, transportation, low edu. Level, literacy, decrease access to med. care, [facility], rehab)? @ -No Was there de-escalation of care discussed even if they declined (Discuss DNR or withdrawal of care, Hospice)? DNR status @ -No What co-morbidities impacted this encounter? (DM, HTN, Smoking, COPD, CAD, Cancer, CVA, ARF, Chemo, Hep., AIDS, mental health diagnosis, sleep apnea, morbid obesity)? @ -Patient currently Was patient admitted / discharged? Hospital course, mention meds given and route, prescriptions, significant lab abnormalities, going to OR and other pertinent info. @ -38-year-old female with pain and swelling in the right armpit. There is a subcentimeter area of focal tenderness and swelling without overlying skin changes, no induration, no fluctuance suspect swollen lymph node. This is roughly pea-sized. I did inform the patient that she should apply warm compresses and monitor for skin changes, worsening swelling. She should follow- up with her primary care provider and return as needed to the emergency department. Undiagnosed new problem with uncertain prognosis? @ -No Drug Therapy requiring intensive monitoring for toxicity (Heparin, Nitro, Insulin, Cardizem)? @ -No Were any procedures done? @ -No Diagnosis/symptom? @ -Swollen lymph node right armpit Acute, or Chronic, or Acute on Chronic? @ -Acute Uncomplicated (without systemic symptoms) or Complicated (systemic symptoms)? @ -Default Side effects of treatment? @ -No Exacerbation, Progression, or Severe Exacerbation? @ -No Poses a threat to life or bodily function? How? (Chest pain, [place], [place], pneumonia, PE, COPD, DKA, ARF, appy, cholecystitis, CVA, Diverticulitis, Homicidal, Suicidal, threat to staff... and all critical care pts) @ -[Not at this time Disposition Clinical Impression: Lymph nodes enlarged Disposition: HOME SELF-CARE Condition: Good Instructions (If sedation given, give patient instructions): Lymphadenopathy (ED) Is patient prescribed a controlled substance at d/c from ED?: No Referrals: None,Stated [Primary Care Provider] - 1-2 days Kaden Carranza, [REFERRING] - 1-2 days Time of Disposition: 13:18
[2024-03-16 13:21] VITALS: BP 126/70; PULSE 82; RESP 18; TEMP 97.9
== END 2024-03-16 13:45 | disposition home or self-care (01) ==
LOC: EC 13:02
CPT/HCPCS: 99282

== ENCOUNTER 2024-03-24 22:16 | Outpatient (CLI) | payer BC, OTHER ==
[2024-03-24 23:01] VITALS: BP 106/66; PULSE 100; RESP 16; TEMP 98
--- NOTE | 2024-04-27 09:23 | P.MSEPDOC ---
Presenting Problems - Arrival Data Date of Arrival on Unit: 03/24/24 Time of Arrival on Unit: 22:16 Mode of Transport: Ambulatory - Complaint OB-Reason for Admission/Chief Complaint: Pain Comment: Patient came in with pain in her upper abdominal pain that radiates up into her chest and around her left side under breast to back. Medical History - Information : 7 Para: 6 Term: 4 : 2 Abortions: Spontaneous or Elective: 0 Number of Living Children: 6 - Gestational Age Gestational Age by ALEJANDRA (wks/days): 23 Weeks and 0 Days - History Complications: Smoker, Hx. Substance Abuse Comment: Patient states she takes a few hits a day of marijuana Review of Systems - Review of Systems Constitutional: No problems Breast: No problems ENT: No problems Cardiovascular: No problems Respiratory: No problems Gastrointestinal: No problems Genitourinary: No problems Musculoskeletal: No problems Neurological: No problems Skin: No problems Vital Signs - Temperature Temperature: 98 F Temperature Source: Temporal Artery Scan - Pulse Pulse Oximetery Pulse Rate: 100 Pulse Assessment Method: Pulse Oximetry - Respirations Respiratory Rate: 16 Oxygen Delivery Method: Room Air O2 Sat by Pulse Oximetry: 96 - Blood Pressure Right Arm Blood Pressure: 106/66 Blood Pressure Mean: 79 Physician Notification - Physician Notified Physician Notified Date: 03/24/24 Physician Notified Time: 22:32 Physician: Janel Kaufman New Order Received: Yes (Discharge home or patient can go to ER) - Notification Comment Comment: Notified of patient complaint of upper abdominal pain that radiates into chest and around left side. Doppler FHR 130-145, no ctx, adomen soft. Maternal Triage Index - Maternal Triage Index Presenting for scheduled procedure w/no complaint: No - Stat/Priority 1 Stat Priority 1: No - Urgent/Priority 2 Urgent Priority 2: No - Prompt/Priority 3 Prompt Priority 3: No - Non-Urgent/Priority 4 Non-Urgent Priority 4: Yes Criteria Met for Priority 4: Patient came in with pain in her upper abdominal pain that radiates up into her chest and around her left side under breast to back. Disposition - Disposition OB Disposition: Discharge to home, Written follow up instructions reviewed Discharge Date: 03/24/24 Discharge Time: 22:40 I agree with the RN Medical Screening Exam: Yes Case reviewed; plan agreed upon as documented in EMR&OBIX.: Yes Diagnosis: RELATED CONDITIONS, UNSPECIFIED, SECOND TRIMESTER
== END 2024-03-24 22:40 | disposition home or self-care (01) ==
LOC: FBPOP 22:16
PROVIDERS: ATTEND Obstetrics & Gynecology Obstetrics
CPT/HCPCS: 99213

== ENCOUNTER 2024-03-24 22:46 | Emergency (ER) | payer BC, OTHER ==
--- NOTE | 2024-03-25 03:28 | ED ---
Abdominal Pain HPI - General Chief Complaint: Abdominal Pain Stated Complaint: Chest Pain/Pressure Time Seen by Provider: 03/25/24 02:26 Source: patient Mode of arrival: ambulatory Limitations: no limitations - History of Present Illness Initial Comments: 28-year-old female presents to the emergency department reporting right upper quadrant abdominal pain. Patient states she is 23 weeks . Started having this pain earlier this evening. She has associated nausea without vomiting. Patient denies any provocative factors. Did not take anything at home to help alleviate her symptoms. Patient states that she had to leave work because her pain became so bad. She denies fevers. No difficulty breathing. No pain radiating to the back. No other alleviating, precipitating modifying factors - Related Data Home Medications Medication Instructions Recorded Confirmed Vit No.179/Iron/Folic 1 tab PO DAILY 02/09/23 03/28/24 [ Tablet] Previous Rx's Medication Instructions Recorded Albuterol Inhaler [Ventolin Hfa 2 puff INHALATION QID #8 gm 04/01/24 Inhaler] Budesonide-Formot 160-4.5 Mcg 2 puff INHALATION BID #1 each 04/01/24 [Symbicort 160-4.5 Mcg Inhaler] Montelukast [Singulair] 10 mg PO HS #30 tab 04/01/24 predniSONE [Deltasone] 0 mg PO DIRECTED #12 tab 04/01/24 Allergies Allergy/AdvReac Type Severity Reaction Status Date / Time No Known Allergies Allergy Verified 03/28/24 16:33 Review of Systems ROS Statement: Those systems with pertinent positive or pertinent negative responses have been documented in the HPI. ROS Other: All systems not noted in ROS Statement are negative. Past Medical History Past Medical History: Asthma Additional Past Medical History / Comment(s): ADHD. Patient had an upper endoscopy for a piece of stuck steak. Past obstetrical history: She has had 5 spontaneous vaginal deliveries 7 lbs. 0 oz. and 7 lbs. 4 oz. and she has had 2 spontaneous miscarriages, History of Any Multi-Drug Resistant Organisms: None Reported Past Surgical History: Orthopedic Surgery, Tonsillectomy Additional Past Surgical History / Comment(s): right knee surgery Past Anesthesia/Blood Transfusion Reactions: No Reported Reaction Past Psychological History: ADD/ADHD, Anxiety, Depression Smoking Status: Current every day smoker Past Alcohol Use History: None Reported Past Drug Use History: Marijuana - Past Family History Mother Family Medical History: No Reported History General Exam Limitations: no limitations General appearance: alert, in no apparent distress Head exam: Present: atraumatic, normocephalic, normal inspection Eye exam: Present: normal appearance, PERRL, EOMI. Absent: scleral icterus, conjunctival injection, periorbital swelling ENT exam: Present: normal exam, mucous membranes moist Neck exam: Present: normal inspection. Absent: tenderness, meningismus, lymphadenopathy Respiratory exam: Present: normal lung sounds bilaterally. Absent: respiratory distress, wheezes, rales, rhonchi, stridor Cardiovascular Exam: Present: regular rate, normal rhythm, normal heart sounds. Absent: systolic murmur, diastolic murmur, rubs, gallop, clicks GI/Abdominal exam: Present: soft, tenderness (Epigastric), normal bowel sounds. Absent: distended, guarding, rebound, rigid Extremities exam: Present: normal inspection, full ROM, normal capillary refill. Absent: tenderness, pedal edema, joint swelling, calf tenderness Back exam: Present: normal inspection Neurological exam: Present: alert, oriented X3, CN II-XII intact Psychiatric exam: Present: normal affect, normal mood Skin exam: Present: warm, dry, intact, normal color. Absent: rash Course Vital Signs 03/24/24 03/25/24 03/25/24 22:54 02:55 04:33 Temperature 97.5 F L Pulse Rate 89 69 85 Respiratory 18 16 Rate Blood Pressure 103/57 105/68 O2 Sat by Pulse 98 97 Oximetry 03/25/24 03/25/24 03/25/24 04:42 05:06 06:15 Temperature 98.1 F Pulse Rate 85 72 76 Respiratory 14 16 Rate Blood Pressure 99/63 90/57 O2 Sat by Pulse 94 L 99 Oximetry Medical Decision Making - Medical Decision Making Was pt. sent in by a medical professional or institution (, PA, IT PROGRAMMER ANALYST, urgent care, hospital, or custodial...) When possible be specific @ -No Did you speak to anyone other than the patient for history (EMS, parent, family, police, friend...)? What history was obtained from this source @ -No Did you review nursing and triage notes (agree or disagree)? Why? @ -I reviewed and agree with nursing and triage notes Were old charts reviewed (outside hosp., previous admission, EMS record, old EKG, old radiological studies, urgent care reports/EKG's, custodial records)? Report findings @ -No old charts were reviewed Differential Diagnosis (chest pain, altered mental status, abdominal pain women, abdominal pain men, vaginal bleeding, weakness, fever, dyspnea, syncope, headache, dizziness, GI bleed, back pain, seizure, CVA, palpatations, mental health, musculoskeletal)? @ -Differential Abdominal Pain Women: Appendicitis, Cholecystitis, diverticulosis, ischemic bowel, pancreatitis, hepatitis, UTI, gastroenteritis, AAA, incarcerated hernia, bowel obstruction, constipation, inflammatory bowel, hepatitis, peptic ulcer disease, splenic infarction, perforated viscus, vulvitis, ovarian torsion, PID, kidney stone, placenta abruption, this is not meant to be an all-inclusive list EKG interpreted by me (3pts min.). @ -Yes and demonstrates sinus rhythm with a rate of 64. PA interval 155. QRS 76. QTc of 403. No acute ST segment elevations or depressions X-rays interpreted by me (1pt min.). @ -None done CT interpreted by me (1pt min.). @ -None done U/S interpreted by me (1pt. min.). @ -Bedside ultrasound was performed which demonstrated positive cardiac activity What testing was considered but not performed or refused? (CT, X-rays, U/S, lab s)? Why? @ -Gallbladder ultrasound was recommended however not available at this time. Patient did not want to stay for the study What meds were considered but not given or refused? Why? @ -None Did you discuss the management of the patient with other professionals (professionals i.e. , PA, IT PROGRAMMER ANALYST, lab, RT, psych nurse, socially responsible investment adviser, wheelchair rental clerk, teacher, military police officer, bilingual case manager)? Give summary @ -No Was smoking cessation discussed for >3mins.? @ -No Was critical care preformed (if so, how long)? @ -No Were there social determinants of health that impacted care today? How? (Homelessness, low income, unemployed, alcoholism, drug addiction, transportation, low edu. Level, literacy, decrease access to med. care, long-term, rehab)? @ -No Was there de-escalation of care discussed even if they declined (Discuss DNR or withdrawal of care, Hospice)? DNR status @ -No What co-morbidities impacted this encounter? (DM, HTN, Smoking, COPD, CAD, Cancer, CVA, ARF, Chemo, Hep., AIDS, mental health diagnosis, sleep apnea, morbid obesity)? @ -None Was patient admitted / discharged? Hospital course, mention meds given and route, prescriptions, significant lab abnormalities, going to OR and other p ertinent info. @ -Upon arrival patient seen and evaluated in room 11. Thorough history and physical exam was performed. IV access was established. Patient was administered pain medications after the risks of the medications were discussed with the patient and she was agreeable to the risks against baby. Results of laboratory studies are discussed with patient. I did recommend an ultrasound. Ultrasound was not available until 7 AM. Patient did not want to wait for the test even though it was recommended. Patient aware of the risks of leaving without completing full testing. I did perform a bedside ultrasound which does demonstrate cardiac activity. Patient will call and make an appointment with her SURGICAL ASST to discuss her symptoms. Return to the emergency department for any new or worsening symptoms. Patient agreeable plan was discharged in stable condition Undiagnosed new problem with uncertain prognosis? @ -Yes Drug Therapy requiring intensive monitoring for toxicity (Heparin, Nitro, Insulin, Cardizem)? @ -No Were any procedures done? @ -No Diagnosis/symptom? @ -Acute right upper quadrant abdominal pain, second trimester Acute, or Chronic, or Acute on Chronic? @ -Acute Uncomplicated (without systemic symptoms) or Complicated (systemic symptoms)? @ -Complicated Side effects of treatment? @ -No Exacerbation, Progression, or Severe Exacerbation? @ -No Poses a threat to life or bodily function? How? (Chest pain, [place], CA, pneumonia, PE, COPD, DKA, ARF, appy, cholecystitis, CVA, Diverticulitis, Homicidal, Suicidal, threat to staff... and all critical care pts) @ -No - Lab Data Result diagrams: 03/25/24 03:54 03/25/24 03:54 Lab Results 03/25/24 03/25/24 03/25/24 Range/Units 03:54 03:54 03:54 WBC 12.0 H (3.8-10.6) k/uL RBC 4.00 (3.80-5.40) m/uL Hgb 12.4 (11.4-16.0) gm/dL Hct 37.5 (34.0-46.0) % MCV 93.8 (80.0-100.0) fL MCH 31.1 (25.0-35.0) pg MCHC 33.2 (31.0-37.0) g/dL RDW 11.8 (11.5-15.5) % Plt Count 215 (150-450) k/uL MPV 7.7 Neutrophils % 66 % Lymphocytes % 23 % Monocytes % 4 % Eosinophils % 5 % Basophils % 0 % Neutrophils # 7.9 H (1.3-7.7) k/uL Lymphocytes # 2.8 (1.0-4.8) k/uL Monocytes # 0.5 (0-1.0) k/uL Eosinophils # 0.6 (0-0.7) k/uL Basophils # 0.1 (0-0.2) k/uL Sodium 134 L (137-145) mmol/L Potassium 3.6 (3.5-5.1) mmol/L Chloride 110 H (98-107) mmol/L Carbon Dioxide 18 L (22-30) mmol/L Anion Gap 6 mmol/L BUN 7 (7-17) mg/dL Creatinine 0.39 L (0.52-1.04) mg/dL Est GFR (CKD-EPI)AfAm >90 (>60 ml/min/1.73 sqM) Est GFR (CKD-EPI)NonAf >90 (>60 ml/min/1.73 sqM) Glucose 71 L (74-99) mg/dL Plasma Lactic Acid Bernabe 0.7 (0.7-2.0) mmol/L Calcium 8.7 (8.4-10.2) mg/dL Total Bilirubin 1.1 (0.2-1.3) mg/dL AST 16 (14-36) U/L ALT 8 (4-34) U/L Alkaline Phosphatase 59 (38-126) U/L Total Protein 5.6 L (6.3-8.2) g/dL Albumin 3.3 L (3.5-5.0) g/dL Lipase 37 (23-300) U/L Urine Color Urine Appearance (Clear) Urine pH (5.0-8.0) Ur Specific [place] (1.001-1.035) Urine Protein (Negative) Urine Glucose (UA) (Negative) Urine Ketones (Negative) Urine Blood (Negative) Urine Nitrite (Negative) Urine Bilirubin (Negative) Urine Urobilinogen (<2.0) mg/dL Ur Leukocyte Esterase (Negative) Urine RBC (0-5) /hpf Urine WBC (0-5) /hpf Ur Squamous Epith Cells (0-4) /hpf Urine Mucus (None) /hpf 03/25/24 Range/Units 03:58 WBC (3.8-10.6) k/uL RBC (3.80-5.40) m/uL Hgb (11.4-16.0) gm/dL Hct (34.0-46.0) % MCV (80.0-100.0) fL MCH (25.0-35.0) pg MCHC (31.0-37.0) g/dL RDW (11.5-15.5) % Plt Count (150-450) k/uL MPV Neutrophils % % Lymphocytes % % Monocytes % % Eosinophils % % Basophils % % Neutrophils # (1.3-7.7) k/uL Lymphocytes # (1.0-4.8) k/uL Monocytes # (0-1.0) k/uL Eosinophils # (0-0.7) k/uL Basophils # (0-0.2) k/uL Sodium (137-145) mmol/L Potassium (3.5-5.1) mmol/L Chloride (98-107) mmol/L Carbon Dioxide (22-30) mmol/L Anion Gap mmol/L BUN (7-17) mg/dL Creatinine (0.52-1.04) mg/dL Est GFR (CKD-EPI)AfAm (>60 ml/min/1.73 sqM) Est GFR (CKD-EPI)NonAf (>60 ml/min/1.73 sqM) Glucose (74-99) mg/dL Plasma Lactic Acid Bernabe (0.7-2.0) mmol/L Calcium (8.4-10.2) mg/dL Total Bilirubin (0.2-1.3) mg/dL AST (14-36) U/L ALT (4-34) U/L Alkaline Phosphatase (38-126) U/L Total Protein (6.3-8.2) g/dL Albumin (3.5-5.0) g/dL Lipase (23-300) U/L Urine Color Yellow Urine Appearance Cloudy H (Clear) Urine pH 6.0 (5.0-8.0) Ur Specific [place] 1.021 (1.001-1.035) Urine Protein Trace H (Negative) Urine Glucose (UA) Negative (Negative) Urine Ketones 1+ H (Negative) Urine Blood Negative (Negative) Urine Nitrite Negative (Negative) Urine Bilirubin Negative (Negative) Urine Urobilinogen <2.0 (<2.0) mg/dL Ur Leukocyte Esterase Large H (Negative) Urine RBC 4 (0-5) /hpf Urine WBC 1 (0-5) /hpf Ur Squamous Epith Cells 12 H (0-4) /hpf Urine Mucus Few H (None) /hpf Disposition Clinical Impression: Second trimester , Epigastric pain Disposition: HOME SELF-CARE Condition: Stable Instructions (If sedation given, give patient instructions): Abdominal Pain in (ED) Additional Instructions: Please follow-up with your SURGICAL ASST. Consider getting a ultrasound of your gallbladder if your pain persist. Return for any new or worsening symptoms Is patient prescribed a controlled substance at d/c from ED?: No Referrals: None,Stated [Primary Care Provider] - 1-2 days Time of Disposition: 05:51
[2024-03-25] MEDS: SODIUM CHLORIDE 0.9% 1,000 ML IV STA (03:44)
[2024-03-25] MEDS: ONDANSETRON 4 MG/2 ML VIAL IVP STA (03:45)
[2024-03-25] MEDS: MORPHINE SULFATE 2 MG/ML SYRINGE IVP ONE (03:46)
[2024-03-25] MEDS: PANTOPRAZOLE 40 MG/10 ML VIAL IVP STA (03:49)
[2024-03-25 04:05] LABS: Basophils # (A) 0.1 k/uL (0-0.2); Basophils % (A) 0 %; Eosinophils # (A) 0.6 k/uL (0-0.7); Eosinophils % (A) 5 %; HCT 37.5 % (34.0-46.0); HGB 12.4 gm/dL (11.4-16.0); Lymphocytes # (A) 2.8 k/uL (1.0-4.8); Lymphocytes % (A) 23 %; MCH 31.1 pg (25.0-35.0); MCHC 33.2 g/dL (31.0-37.0); MCV 93.8 fL (80.0-100.0); Mean Platelet Volume 7.7; Monocytes # (A) 0.5 k/uL (0-1.0); Monocytes % (A) 4 %; Neutrophils # (A) 7.9 k/uL (1.3-7.7); Neutrophils % (A) 66 %; Platelet Count 215 k/uL (150-450); RDW 11.8 % (11.5-15.5)
[2024-03-25 04:19] LABS: Appearance,Urine Cloudy (Clear); Bilirubin,Urine Negative (Negative); Blood,Urine Negative (Negative); Color,Urine Yellow; Glucose,Urine (UA) Negative (Negative); Ketones,Urine 1+ (Negative); Leukocyte Esterase,Urine Large (Negative); Mucus,Urine Few /hpf; Nitrite,Urine Negative (Negative); Protein,Urine Trace (Negative); RBC,Urine 4 /hpf (0-5); Specific Gravity,Urine 1.021 (1.001-1.035); Squamous Epithelial Cell,Urine 12 /hpf (0-4); Urobilinogen,Urine <2.0 mg/dL (<2.0); WBC,Urine 1 /hpf (0-5)
[2024-03-25 04:29] LABS: ALT 8 U/L (4-34); AST 16 U/L (14-36); African American GFR (CKD) >90 (>60 ml/min/1.73 sqM); Albumin 3.3 g/dL (3.5-5.0); Alkaline Phosphatase 59 U/L (38-126); Anion Gap 6 mmol/L; Blood Urea Nitrogen 7 mg/dL (7-17); Calcium 8.7 mg/dL (8.4-10.2); Carbon Dioxide 18 mmol/L (22-30); Chloride 110 mmol/L (98-107); Glucose 71 mg/dL (74-99); Lipase 37 U/L (23-300); Non-African American GFR(CKD) >90 (>60 ml/min/1.73 sqM); Potassium 3.6 mmol/L (3.5-5.1); Sodium 134 mmol/L (137-145); Total Bilirubin 1.1 mg/dL (0.2-1.3); Total Protein 5.6 g/dL (6.3-8.2)
[2024-03-25] MEDS: ALBUTEROL NEBULIZED 2.5 MG/3 ML INHALATION STA (04:33)
[2024-03-25 06:16] VITALS: BP 90/57; PULSE 76; RESP 16; TEMP 98.1
== END 2024-03-25 06:15 | disposition home or self-care (01) ==
LOC: EC 22:46
CPT/HCPCS: 36415; 80053; 81001; 83605; 83690; 85025; 93005; 94640; 96361; 96374; 96375; 99284

== ENCOUNTER 2024-03-28 12:30 | Inpatient (IN) | payer BC, OTHER ==
--- NOTE | 2024-03-28 13:24 | ED ---
SOB HPI - General Chief Complaint: Shortness of Breath Stated Complaint: SOB, 23weeks Time Seen by Provider: 03/28/24 12:38 Source: patient, RN notes reviewed Mode of arrival: ambulatory Limitations: no limitations - History of Present Illness Initial Comments: This is a 28-year-old female who presents to the emergency department for shortness of breath. States that she had a cough yesterday and today felt like she was increasingly short of breath. She is having trouble taking a full deep breath. Reports a history of asthma and is using an inhaler but not getting any relief. She does not have a nebulizer at home. Patient is 23 weeks a nd . Denies any vaginal bleeding. Reports regular movement. Denies any pain in her upper or lower extremities. MD Complaint: shortness of breath - Related Data Home Medications Medication Instructions Recorded Confirmed Vit No.179/Iron/Folic 1 tab PO DAILY 02/09/23 03/28/24 [ Tablet] Albuterol Inhaler [Ventolin Hfa 2 puff INHALATION RT-Q6H PRN 03/28/24 03/28/24 Inhaler] Allergies Allergy/AdvReac Type Severity Reaction Status Date / Time No Known Allergies Allergy Verified 03/28/24 16:33 Review of Systems ROS Statement: Those systems with pertinent positive or pertinent negative responses have been documented in the HPI. ROS Other: All systems not noted in ROS Statement are negative. Past Medical History Past Medical History: Asthma Additional Past Medical History / Comment(s): ADHD. Patient had an upper endoscopy for a piece of stuck steak. Past obstetrical history: She has had 5 spontaneous vaginal deliveries 7 lbs. 0 oz. and 7 lbs. 4 oz. and she has had 2 spontaneous miscarriages, History of Any Multi-Drug Resistant Organisms: None Reported Past Surgical History: Orthopedic Surgery, Tonsillectomy Additional Past Surgical History / Comment(s): right knee surgery Past Anesthesia/Blood Transfusion Reactions: No Reported Reaction Past Psychological History: ADD/ADHD, Anxiety, Depression Smoking Status: Current every day smoker Past Alcohol Use History: None Reported Past Drug Use History: Marijuana - Past Family History Mother Family Medical History: No Reported History General Exam Limitations: no limitations General appearance: alert, in no apparent distress Head exam: Present: atraumatic, normocephalic, normal inspection Respiratory exam: Present: wheezes, decreased breath sounds, prolonged expiratory Cardiovascular Exam: Present: regular rate, normal rhythm, normal heart sounds. Absent: systolic murmur, diastolic murmur, rubs, gallop, clicks Neurological exam: Present: alert, oriented X3, CN II-XII intact Psychiatric exam: Present: normal affect, normal mood Skin exam: Present: warm, dry, intact, normal color. Absent: rash Course Vital Signs 03/28/24 03/28/24 03/28/24 12:34 13:18 13:49 Temperature 97.6 F Pulse Rate 95 98 87 Respiratory 20 20 Rate Blood Pressure 111/70 110/70 O2 Sat by Pulse 95 96 Oximetry 03/28/24 03/28/24 03/28/24 13:57 15:00 15:41 Temperature Pulse Rate 78 117 H 103 H Respiratory 24 Rate Blood Pressure O2 Sat by Pulse 95 Oximetry 03/28/24 15:51 Temperature Pulse Rate 101 H Respiratory Rate Blood Pressure O2 Sat by Pulse Oximetry Medical Decision Making - Medical Decision Making This is a 28-year-old female who presents to the emergency department for shortness of breath. Was pt. sent in by a medical professional or institution? @ -No Did you speak to anyone other than the patient for history? @ -No Did you review nursing and triage notes? @ -Yes, and I agree, it is accurate with regards to the patient's symptoms. Were old charts reviewed? @ -No Differential Diagnosis? @ -Differential Dyspnea: Coronary syndrome, arrhythmia, tamponade, asthma, COPD, pulmonary embolism, pneumonia, pneumothorax, pulmonary effusion, anaphylaxis, diabetic ketoacidosis, flailed chest, pulmonary contusion, diaphragmatic rupture, anemia, neuromuscular, this is not meant to be an all-inclusive list. EKG interpreted by me (3pts min.)? @ -EKG interpreted by me demonstrating the following: Sinus rhythm. Ventricular rate 89 bpm, IN interval 141 ms, QRS duration 77 ms, QTc 365 ms. X-rays interpreted by me (1pt min.)? @ -Chest x-ray obtained. My interpretation identifies interstitial infiltrates. CT interpreted by me (1pt min.)? @ -Not obtained U/S interpreted by me (1pt. min.)? @ -Not obtained What testing was considered but not performed? (CT, X-rays, U/S, labs)? Why? @ -None What meds were considered but not given? Why? @ -None Did you discuss the management of the patient with other professionals? @ -Yes, Dr. Stoddard, who accepts the patient for admission Did you reconcile home meds? @ -Yes Was smoking cessation discussed for >3mins.? @ -I discussed smoking cessation for greater than 3 minutes. The risk of smoking were discussed with the patient including but not limited to risks of cancer, stroke, coronary artery disease and COPD. Also discussed with patient were multiple methods of quitting smoking. Lastly we discussed the financial cost of smoking. Was critical care preformed (if so, how long)? @ -No Were there social determinants of health that impacted care today? How? (Homelessness, low income, unemployed, alcoholism, drug addiction, transportation, low edu. Level, literacy, decrease access to med. care, [facility], rehab)? @ -No Was there de-escalation of care discussed even if they declined? (Discuss DNR or withdrawal of care, Hospice)? @ -No What co-morbidities impacted this encounter? (DM, HTN, Smoking, COPD, CAD, Cancer, CVA, Hep., AIDS, mental health diagnosis, sleep apnea, morbid obesity)? @ -Smoking, Was patient admitted / discharged? @ -Admitted. Lab work demonstrates leukocytosis with a white blood cell count of 17.6. D-dimer elevated at 0.82. However, this is within the acceptable range for her being in her second trimester of . COVID, influenza, and RSV testing negative. tones were auscultated at 130 to 140 bpm. She was given a total of 2 DuoNeb breathing treatments, but continued to have fairly prominent wheezing with decreased aeration. She was also given Decadron, magnesium, Singulair, and IV fluids. Patient was agreeable to a chest x-ray and this demonstrated mild interstitial infiltrates. There was a small area of patchy density at the right upper lobe suggestive of bronchitis or atypical pneumonias. Findings reviewed with the patient. Patient did not improve despite the breathing treatments and other medications she received in the emergency department. She also does not have a nebulizer she can use at home and there is concerned about her continuing to get worse if she were to go home. She was subsequently admitted to medicine for an asthma exacerbation with possible atypical pneumonia. She was started on the pneumonia protocol with ceftriaxone and azithromycin. FILTER TANK TENDER HELPER consulted for care. Case discussed with ED attending, Dr. Delarosa. Undiagnosed new problem with uncertain prognosis? @ -None Drug Therapy requiring intensive monitoring for toxicity (Heparin, Nitro, Insulin, Cardizem)? @ -None Were any procedures done? @ -None Diagnosis/symptom? @ -Asthma exacerbation Acute, or Chronic, or Acute on Chronic? @ -Acute on chronic Uncomplicated (without systemic symptoms) or Complicated (systemic symptoms)? @ -Complicated Side effects of treatment? @ -None Exacerbation, Progression, or Severe Exacerbation] @ -Severe exacerbation Poses a threat to life or bodily function? @ -Yes, can lead to further respiratory distress - Lab Data Result diagrams: 03/28/24 14:39 03/28/24 14:39 Lab Results 03/28/24 03/28/24 03/28/24 Range/Units 12:50 14:39 14:39 WBC 17.6 H (3.8-10.6) k/uL RBC 4.13 (3.80-5.40) m/uL Hgb 12.7 (11.4-16.0) gm/dL Hct 39.0 (34.0-46.0) % MCV 94.6 (80.0-100.0) fL MCH 30.9 (25.0-35.0) pg MCHC 32.7 (31.0-37.0) g/dL RDW 12.1 (11.5-15.5) % Plt Count 230 (150-450) k/uL MPV 7.7 Neutrophils % 89 % Lymphocytes % 6 % Monocytes % 3 % Eosinophils % 2 % Basophils % 0 % Neutrophils # 15.6 H (1.3-7.7) k/uL Lymphocytes # 1.1 (1.0-4.8) k/uL Monocytes # 0.5 (0-1.0) k/uL Eosinophils # 0.3 (0-0.7) k/uL Basophils # 0.0 (0-0.2) k/uL PT 10.6 (10.0-12.5) sec INR 1.0 (<1.2) APTT 27.7 (22.0-30.0) sec D-Dimer 0.82 H (<0.60) mg/L FEU Sodium (137-145) mmol/L Potassium (3.5-5.1) mmol/L Chloride (98-107) mmol/L Carbon Dioxide (22-30) mmol/L Anion Gap mmol/L BUN (7-17) mg/dL Creatinine (0.52-1.04) mg/dL Est GFR (CKD-EPI)AfAm (>60 ml/min/1.73 sqM) Est GFR (CKD-EPI)NonAf (>60 ml/min/1.73 sqM) Glucose (74-99) mg/dL Calcium (8.4-10.2) mg/dL Total Bilirubin (0.2-1.3) mg/dL AST (14-36) U/L ALT (4-34) U/L Alkaline Phosphatase (38-126) U/L Troponin I (0.000-0.034) ng/mL Total Protein (6.3-8.2) g/dL Albumin (3.5-5.0) g/dL Influenza Type A (PCR) Not Detected (Not Detectd) Influenza Type B (PCR) Not Detected (Not Detectd) RSV (PCR) Not Detected (Not Detectd) SARS-CoV-2 (PCR) Not Detected (Not Detectd) 03/28/24 03/28/24 Range/Units 14:39 14:39 WBC (3.8-10.6) k/uL RBC (3.80-5.40) m/uL Hgb (11.4-16.0) gm/dL Hct (34.0-46.0) % MCV (80.0-100.0) fL MCH (25.0-35.0) pg MCHC (31.0-37.0) g/dL RDW (11.5-15.5) % Plt Count (150-450) k/uL MPV Neutrophils % % Lymphocytes % % Monocytes % % Eosinophils % % Basophils % % Neutrophils # (1.3-7.7) k/uL Lymphocytes # (1.0-4.8) k/uL Monocytes # (0-1.0) k/uL Eosinophils # (0-0.7) k/uL Basophils # (0-0.2) k/uL PT (10.0-12.5) sec INR (<1.2) APTT (22.0-30.0) sec D-Dimer (<0.60) mg/L FEU Sodium 136 L (137-145) mmol/L Potassium 3.5 (3.5-5.1) mmol/L Chloride 113 H (98-107) mmol/L Carbon Dioxide 16 L (22-30) mmol/L Anion Gap 7 mmol/L BUN 3 L (7-17) mg/dL Creatinine 0.43 L (0.52-1.04) mg/dL Est GFR (CKD-EPI)AfAm >90 (>60 ml/min/1.73 sqM) Est GFR (CKD-EPI)NonAf >90 (>60 ml/min/1.73 sqM) Glucose 92 (74-99) mg/dL Calcium 8.4 (8.4-10.2) mg/dL Total Bilirubin 1.2 (0.2-1.3) mg/dL AST 15 (14-36) U/L ALT 8 (4-34) U/L Alkaline Phosphatase 70 (38-126) U/L Troponin I <0.012 (0.000-0.034) ng/mL Total Protein 5.9 L (6.3-8.2) g/dL Albumin 3.4 L (3.5-5.0) g/dL Influenza Type A (PCR) (Not Detectd) Influenza Type B (PCR) (Not Detectd) RSV (PCR) (Not Detectd) SARS-CoV-2 (PCR) (Not Detectd) - Radiology Data Radiology results: report reviewed, image reviewed Disposition Clinical Impression: Asthma exacerbation, Atypical pneumonia, Nicotine dependence Disposition: ADMITTED IP TO THIS [facility] Referrals: None,Stated [Primary Care Provider] - 1-2 days
[2024-03-28] MEDS: SODIUM CHLORIDE 0.9% 1,000 ML IV STA (13:30)
[2024-03-28] MEDS: MONTELUKAST 10 MG TAB PO STA (13:34)
[2024-03-28] MEDS: DEXAMETHASONE SOD PHOSPHATE 10 MG/ML 1 ML VIAL IVP STA (13:34)
[2024-03-28] MEDS: DEXAMETHASONE SOD PHOSPHATE 10 MG/ML 1 ML VIAL IM STA (13:35)
[2024-03-28] MEDS: MAGNESIUM SULFATE-D5W PMX 1 GM in DEXTROSE/WATER 1 100ML.BAG IVPB ONE (13:35)
[2024-03-28] MEDS: IPRATROPIUM-ALBUTEROL 3 ML NEB INHALATION STA ×2 (13:47→15:41)
[2024-03-28 15:00] LABS: Basophils % (A) 0 %; Eosinophils # (A) 0.3 k/uL (0-0.7); Eosinophils % (A) 2 %; HGB 12.7 gm/dL (11.4-16.0); Lymphocytes # (A) 1.1 k/uL (1.0-4.8); Lymphocytes % (A) 6 %; MCH 30.9 pg (25.0-35.0); MCHC 32.7 g/dL (31.0-37.0); MCV 94.6 fL (80.0-100.0); Mean Platelet Volume 7.7; Monocytes # (A) 0.5 k/uL (0-1.0); Monocytes % (A) 3 %; Neutrophils # (A) 15.6 k/uL (1.3-7.7); Neutrophils % (A) 89 %; Platelet Count 230 k/uL (150-450); RBC 4.13 m/uL (3.80-5.40); RDW 12.1 % (11.5-15.5); WBC 17.6 k/uL (3.8-10.6)
[2024-03-28 15:11] LABS: ALT 8 U/L (4-34); AST 15 U/L (14-36); African American GFR (CKD) >90 (>60 ml/min/1.73 sqM); Albumin 3.4 g/dL (3.5-5.0); Alkaline Phosphatase 70 U/L (38-126); Anion Gap 7 mmol/L; Blood Urea Nitrogen 3 mg/dL (7-17); Calcium 8.4 mg/dL (8.4-10.2); Carbon Dioxide 16 mmol/L (22-30); Chloride 113 mmol/L (98-107); Glucose 92 mg/dL (74-99); Non-African American GFR(CKD) >90 (>60 ml/min/1.73 sqM); Potassium 3.5 mmol/L (3.5-5.1); Sodium 136 mmol/L (137-145); Total Bilirubin 1.2 mg/dL (0.2-1.3); Total Protein 5.9 g/dL (6.3-8.2)
[2024-03-28 15:17] LABS: Partial Thromboplastin Time 27.7 sec (22.0-30.0); Prothrombin Time 10.6 sec (10.0-12.5)
--- NOTE | 2024-03-28 16:35 | XR ---
EXAMINATION TYPE: XR chest 2V DATE OF EXAM: 03/28/2024 COMPARISON: 09/17/2023 HISTORY: 28-year-old female short of breath, difficulty in breathing TECHNIQUE: PA and lateral views FINDINGS: Heart normal size. Aorta and pulmonary vasculature within normal limits. Mild interstitial prominence and peribronchial cuffing. Slightly focal density at the right upper lobe. Otherwise, no other conso lidation or pleural effusion. IMPRESSION: Mild interstitial infiltrates. Small area of patchy density at the right upper lobe. Consider bronchi tis or atypical pneumonias. Follow-up after treatment to reassess especially the right upper lobe reg ion. [facility], , 03/28/2024 4:32 PM
[2024-03-28] MEDS ORDERED: PNEUMONIA PROTOCOL UTILIZED 1 EACH MISC PO PRN (16:38)
[2024-03-28] MEDS ORDERED: NALOXONE 0.4 MG/ML 1 ML VIAL IV PRN (16:47)
[2024-03-28] MEDS ORDERED: NON FORMULARY DRUG (Albuterol Inhaler 90 MCG Puff) INHALATION PRN (16:50)
--- NOTE | 2024-03-28 17:28 | P.HPIM ---
History of Present Illness H&P Date: 03/28/24 Patient is a 28-year-old female with a past medical history of asthma and tobacco abuse and is 23 weeks who presents to the ED with shortness of breath. Patient states that yesterday she had a cough and when she woke up this morning she felt short of breath. She states that she used her rescue inhaler which did not provide any relief so she decided to come into the emergency room. She states that her is going well. She states that she had placenta previa. She states that she has been gaining weight appropriately. She states that she is still smoking about 5 cigarettes a day. She said she was smoking 1 pack before and has cut down significantly since she became . In the ED patient was tachycardic. Patient's WBC 17.6, D-dimer 0.82, bicarb 16. Influenza RSV and COVID-negative. Chest x-ray showed mild interstitial infiltrates and small area of patchy density at the right upper lobe. Patient was given breathing treatment and IV dexamethasone 10 mg and magnesium sulfate 1 g with no improvement so was referred for admission. ROS: 10 ROS reviewed and are negative except as noted in HPI Physical exam General: [Alert and oriented, appears malnourished, mild to moderate respiratory distress]. Eye: [PERRL, EOMI, normal conjunctiva]. HENT: [Normocephalic, clear tympanic membranes, normal hearing, moist oral mucosa, no scleral icterus, no sinus tenderness]. Neck: [Supple, non-tender, no carotid bruits, no JVD, no lymphadenopathy]. Lungs: [Bilateral wheezing]. Heart: [Normal rate, regular rhythm, no murmur, gallop or edema]. Abdomen: [Soft, non-tender, non-distended, normal bowel sounds, no masses]. Musculoskeletal: [Normal range of motion and strength, no tenderness or swelling]. Neurologic: [Awake, alert, and oriented X3, CN II-XII intact]. Psychiatric: [Cooperative, appropriate mood and affect]. Assessment and plan Community-acquired pneumonia Acute severe asthma exacerbation Acute bronchitis Will start the patient on IV Solu-Medrol 40 mg every 12 hours -> discussed with pulmonology who said prednisone or Solu-Medrol would be the safest options and patient Continue with DuoNeb 4 times a day and also as needed IV Rocephin 2 g every 24 hours P.o. azithromycin 500 mg every 24 hours Follow-up on blood culture Obtain sputum culture if able to Pulmonology consult Patient is high risk for decompensation Mildly elevated D-dimer This is likely due to Doubt patient has pulmonary embolism as the most likely etiology is pneumonia or bronchitis since patient has significant wheezing on exam patient Consult PARTS DRIVER Continue vitamin DVT prophylaxis: Encourage early ambulation Past Medical History Past Medical History: Asthma Additional Past Medical History / Comment(s): ADHD. Patient had an upper endoscopy for a piece of stuck steak. Past obstetrical history: She has had 5 spontaneous vaginal deliveries 7 lbs. 0 oz. and 7 lbs. 4 oz. and she has had 2 spontaneous miscarriages, History of Any Multi-Drug Resistant Organisms: None Reported Past Surgical History: Orthopedic Surgery, Tonsillectomy Additional Past Surgical History / Comment(s): right knee surgery Past Anesthesia/Blood Transfusion Reactions: No Reported Reaction Past Psychological History: ADD/ADHD, Anxiety, Depression Smoking Status: Current every day smoker Past Alcohol Use History: None Reported Past Drug Use History: Marijuana - Past Family History Mother Family Medical History: No Reported History Medications and Allergies Home Medications Medication Instructions Recorded Confirmed Type Vit No.179/Iron/Folic 1 tab PO DAILY 02/09/23 03/28/24 History [ Tablet] Albuterol Inhaler [Ventolin Hfa 2 puff INHALATION RT-Q6H PRN 03/28/24 03/28/24 History Inhaler] Allergies Allergy/AdvReac Type Severity Reaction Status Date / Time No Known Allergies Allergy Verified 03/28/24 16:33 Physical Exam Osteopathic Statement: *. No significant issues noted on an osteopathic structural exam other than those noted in the History and Physical/Consult. Vitals: Vital Signs Temp Pulse Resp BP Pulse Ox 03/28/24 15:51 101 H 03/28/24 15:41 103 H 03/28/24 15:00 117 H 24 95 03/28/24 13:57 78 03/28/24 13:49 87 03/28/24 13:18 98 20 110/70 96 03/28/24 12:34 97.6 F 95 20 111/70 95 Intake and Output 03/28/24 03/28/24 03/28/24 06:59 14:59 22:59 Other: Weight 58.06 kg Results CBC & Chem 7: 03/28/24 14:39 03/28/24 14:39 Labs: Abnormal Lab Results - Last 24 Hours (Table) 03/28/24 03/28/24 03/28/24 Range/Units 14:39 14:39 14:39 WBC 17.6 H (3.8-10.6) k/uL Neutrophils # 15.6 H (1.3-7.7) k/uL D-Dimer 0.82 H (<0.60) mg/L FEU Sodium 136 L (137-145) mmol/L Chloride 113 H (98-107) mmol/L Carbon Dioxide 16 L (22-30) mmol/L BUN 3 L (7-17) mg/dL Creatinine 0.43 L (0.52-1.04) mg/dL Total Protein 5.9 L (6.3-8.2) g/dL Albumin 3.4 L (3.5-5.0) g/dL
[2024-03-28] MEDS: AZITHROMYCIN 500 MG in SODIUM CHLORIDE 0.9% 250 ML IVPB STA (18:08)
[2024-03-28] MEDS: IPRATROPIUM-ALBUTEROL 3 ML NEB INHALATION SCH (19:44)
[2024-03-28] MEDS: ACETAMINOPHEN TAB 325 MG TAB PO PRN (19:48)
[2024-03-29] MEDS: IPRATROPIUM-ALBUTEROL 3 ML NEB INHALATION PRN (00:32)
[2024-03-29] MEDS: methylPREDNISolone SOD SUCCI 40 MG/ML 1 ML VIAL IV SCH (01:07)
[2024-03-29] MEDS: ONDANSETRON 4 MG/2 ML VIAL IVP PRN (03:03)
--- NOTE | 2024-03-29 05:07 | P.CNPUL ---
History of Present Illness Consult date: 03/29/24 Requesting physician: Nisha Tripathi Reason for consult: asthma Chief complaint: Shortness of breath, wheezing, productive cough History of present illness: Patient is a 28-year-old female with past medical history significant for asthma and chronic ongoing tobacco dependence. She is also currently 23 weeks . She is a A2. Her glaze grinder is Dr. Kaufman. Patient's asthma is fairly uncontrolled at baseline. States that she had uses her albuterol inhaler quite frequently at least 2 times per day. She is in between primary care providers. She currently smokes tobacco and is down to 5 cigarettes/day. Previously heavy smoker, started when she was 6 years old, smoking 1 to 1-1/2 packs/day up until recently. Over the last 24 to 48 hours. Patient's day persistent cough with yellow to green sputum production. Her chest is sore especially with coughing and deep breathing. She is progressively become more short of breath. She has been wheezing. Has not had much relief from her albuterol rescue inhaler over the last 24 hrs. Denies sick contacts. Chest x- ray taken on arrival demonstrates mild interstitial infiltrates and small area of patchy density in the right upper lobe. Differential includes bronchitis or atypical pneumonias. Negative for influenza, RSV, COVID. CBC: WBC count 17.6, hemoglobin 12.7, hematocrit 39, platelets 230. CMP: Sodium 136, potassium 3.5, chloride 113, serum bicarb 16, BUN 3, creatinine 0.43, glucose 92. LFTs unremarkable. Troponin less than 0.012. D-dimer was mildly elevated 0.82. Patient denies any unilateral leg swelling. Denies any history of blood clots. Denies any chest pain. Patient's asthma is clearly active. She has been started on combination of bronchodilators [id number] and IV Solu-Medrol. Also, empirically covered in the emergency department on a combination of azithromycin and Rocephin. She is resting comfortably on 2 L/min nasal cannula. SpO2 98%. On auscultation, there are diffuse expiratory wheezes and coarse rhonchi. Review of Systems Constitutional: Reports fatigue, Denies chills, Denies fever, Denies night sweats, Denies weight loss Ears, nose, mouth and throat: Denies nasal congestion, Denies nasal discharge, Denies post-nasal drip, Denies sinus pressure, Denies sore throat Cardiovascular: Denies chest pain, Denies leg edema, Denies orthopnea, Denies palpitations, Denies paroxysmal nocturnal dyspnea Respiratory: Reports as per HPI Gastrointestinal: Denies change in bowel habits, Denies constipation, Denies diarrhea, Denies nausea, Denies vomiting Genitourinary: Denies dysuria Musculoskeletal: Reports muscle weakness, Denies limitation of motion Integumentary: Denies rash Neurological: Denies confusion, Denies seizures, Denies syncope, Denies visual changes Psychiatric: Denies anxiety, Denies depression Past Medical History Past Medical History: Asthma Additional Past Medical History / Comment(s): ADHD. Patient had an upper endosc opy for a piece of stuck steak. Past obstetrical history: She has had 5 spontaneous vaginal deliveries 7 lbs. 0 oz. and 7 lbs. 4 oz. and she has had 2 spontaneous miscarriages, History of Any Multi-Drug Resistant Organisms: None Reported Past Surgical History: Orthopedic Surgery, Tonsillectomy Additional Past Surgical History / Comment(s): right knee surgery Past Anesthesia/Blood Transfusion Reactions: No Reported Reaction Past Psychological History: ADD/ADHD, Anxiety, Depression Smoking Status: Current every day smoker Past Alcohol Use History: None Reported Past Drug Use History: Marijuana - Past Family History Mother Family Medical History: No Reported History Medications and Allergies Home Medications Medication Instructions Recorded Confirmed Type Vit No.179/Iron/Folic 1 tab PO DAILY 02/09/23 03/28/24 History [ Tablet] Albuterol Inhaler [Ventolin Hfa 2 puff INHALATION RT-Q6H PRN 03/28/24 03/28/24 History Inhaler] Allergies Allergy/AdvReac Type Severity Reaction Status Date / Time No Known Allergies Allergy Verified 03/28/24 16:33 Physical Exam Vitals: Vital Signs Temp Pulse Resp BP Pulse Ox 03/29/24 04:25 83 03/29/24 03:00 94 20 97/52 97 03/29/24 02:00 94 20 102/62 98 03/29/24 01:00 97.9 F 100 20 95/60 98 03/29/24 00:44 96 03/29/24 00:33 95 03/28/24 23:00 98 20 109/70 97 03/28/24 20:00 98.4 F 117 H 20 118/64 97 03/28/24 19:56 100 03/28/24 19:44 104 H 03/28/24 18:00 115 H 22 112/76 95 03/28/24 16:00 100 20 120/81 96 03/28/24 15:51 101 H 03/28/24 15:41 103 H 03/28/24 15:00 117 H 24 95 03/28/24 13:57 78 03/28/24 13:49 87 03/28/24 13:18 98 20 110/70 96 03/28/24 12:34 97.6 F 95 20 111/70 95 Intake and Output 03/28/24 03/28/24 03/29/24 14:59 22:59 06:59 Other: Weight 58.06 kg GENERAL EXAM: Alert, 28-year-old white female with , comfortable in no apparent distress. HEAD: Normocephalic and atraumatic EYES: Normal reaction of pupils, equal size. NOSE: Clear with pink turbinates. THROAT: No erythema or exudates. NECK: No masses, no JVD. CHEST: No chest wall deformity. LUNGS: Equal air entry with diffuse expiratory wheezing and coarse rhonchi. On 2 L/min nasal cannula.. No conversational dyspnea or accessory muscle use.. CVS: S1 and S2 normal with no audible murmur, regular rhythm. No extra heart sounds ABDOMEN: No hepatosplenomegaly, active bowel sounds, no guarding or rigidity. SPINE: No scoliosis or deformity SKIN: No rashes CENTRAL NERVOUS SYSTEM: No focal deficits, tone is normal in all 4 extremities. EXTREMITIES: There is no peripheral edema, clubbing, or cyanosis. Peripheral pulses are intact. Results - Laboratory Findings CBC and BMP: 03/28/24 14:39 03/28/24 14:39 PT/INR, D-dimer PT 10.6 sec (10.0-12.5) 03/28/24 14:39 INR 1.0 (<1.2) 03/28/24 14:39 D-Dimer 0.82 mg/L FEU (<0.60) H 03/28/24 14:39 Abnormal lab findings: Abnormal Labs 03/28/24 03/28/24 03/28/24 14:39 14:39 14:39 WBC 17.6 H Neutrophils # 15.6 H D-Dimer 0.82 H Sodium 136 L Chloride 113 H Carbon Dioxide 16 L BUN 3 L Creatinine 0.43 L C-Reactive Protein Total Protein 5.9 L Albumin 3.4 L 03/29/24 03:00 WBC Neutrophils # D-Dimer Sodium Chloride Carbon Dioxide BUN Creatinine C-Reactive Protein 5.0 H Total Protein Albumin - Diagnostic Findings Chest x-ray: image reviewed Assessment and Plan Assessment: Acute asthma exacerbation, possibly secondary to acute bronchitis or atypical pneumonia, chest x-ray showing mild interstitial infiltrates with small area of patchy density in the right upper lobe. Acute hypoxemic respiratory failure, secondary to above Acute leukocytosis Non-anion gap metabolic acidosis , 23 weeks gestation A2 Chronic ongoing tobacco dependence, down to 5 cigarettes/day Plan: Patient's medications, labs, chest x-ray reviewed Continue supplemental oxygen and avoid hypoxia Patient currently on a combination of bronchodilators and IV Solu-Medrol. Benefits felt to outweigh risk of systemic steroids. Add inhaled corticosteroid, budesonide has a low risk teratogenicity Patient's glaze grinder also following for monitoring. Continues on empiric antibiotics. Procalcitonin level pending. Sputum culture pending. Blood culture pending. Urine Legionella antigen pending. Negative for influenza, RSV, COVID Smoking cessation counseling performed greater than 10 minutes We will continue to follow, this recommendations forthcoming I have personally seen and examined the patient, performed the documentation and the assessment and plan as written. Number of minutes spent on the visit:20 Time with Patient: Greater than 30
[2024-03-29] MEDS: BUDESONIDE 1 MG/2 ML NEBU INHALATION SCH (08:27)
[2024-03-29 08:59] LABS: Basophils # (A) 0.03 X 10*3/uL (0.00-0.10); Basophils % (A) 0.2 %; Eosinophils # (A) 0 X 10*3/uL (0.04-0.35); Eosinophils % (A) 0 %; HCT 34.1 % (37.2-46.3); HGB 11.7 g/dL (12.0-15.0); Lymphocytes # (A) 0.74 X 10*3/uL (0.90-5.00); Lymphocytes % (A) 3.8 %; MCH 31.3 pg (27.0-32.0); MCHC 34.3 g/dL (32.0-37.0); MCV 91.2 FL (80.0-97.0); Mean Platelet Volume 11.6 FL (9.5-12.2); Monocytes # (A) 0.56 X 10*3/uL (0.20-1.00); Monocytes % (A) 2.9 %; NRBC Per 100 WBC 0 X 10*3/uL (0.00-0.01); Neutrophils # (A) 17.93 X 10*3/uL (1.80-7.70); Neutrophils % (A) 92.1 %; Platelet Count 244 X 10*3/uL (140-440); RBC 3.74 X 10*6/uL (4.10-5.20); RDW 12.4 % (11.5-14.5); WBC 19.46 X 10*3/uL (4.50-10.00)
[2024-03-29] MEDS ORDERED: [UNRECOGNIZED DRUG - REMARK] PO SCH (09:00)
[2024-03-29] MEDS: AZITHROMYCIN 500 MG TAB PO SCH (09:51)
[2024-03-29] MEDS: PRENATAL VIT-IRON-FOLIC ACID 1 EACH TABLET PO SCH (09:52)
--- NOTE | 2024-03-29 10:53 | P.PN ---
Subjective Progress Note Date: 03/29/24 Patient is a 28-year-old female with a past medical history of asthma and tobacco abuse and is 23 weeks who presents to the ED with shortness of breath. Patient states that yesterday she had a cough and when she woke up this morning she felt short of breath. She states that she used her rescue inhaler which did not provide any relief so she decided to come into the emergency room. She states that her is going well. She states that she had placenta previa. She states that she has been gaining weight appropriately. She states that she is still smoking about 5 cigarettes a day. She said she was smoking 1 pack before and has cut down significantly since she became . In the ED patient was tachycardic. Patient's WBC 17.6, D-dimer 0.82, bicarb 16. Influenza RSV and COVID-negative. Chest x-ray showed mild interstitial infiltrates and small area of patchy density at the right upper lobe. Patient was given breathing treatment and IV dexamethasone 10 mg and magnesium sulfate 1 g with no improvement so was referred for admission. Patient was started on IV steroids [id number] and DuoNeb [id number] and also as needed DuoNeb. Patient also distended on IV Rocephin and azithromycin. Pulmonology following the patient. SYSTEMS SPEC consulted to monitor fetus. Patient seen today. She states that she is feeling better today compared to yesterday. However she still feels short of breath. 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 azithromycin 500 mg every 24 hours Follow-up on blood culture Obtain sputum culture if able to Reviewed pulmonology note. Patient also started on Perforomist 20 mcg twice daily WBC this morning is 19. This could be elevated due to steroids. Mildly elevated D-dimer This is likely due to Doubt patient has pulmonary embolism as the most likely etiology of her shortness of breath is pneumonia with bronchitis since patient has significant wheezing on exam patient Consult SYSTEMS SPEC Continue vitamin DVT prophylaxis: Encourage early ambulation Objective - Vital Signs Vital signs: Vital Signs Temp 97.7 F 03/29/24 07:29 Pulse 88 03/29/24 08:45 Resp 15 03/29/24 07:29 BP 96/61 03/29/24 07:29 Pulse Ox 94 L 03/29/24 08:44 FiO2 Intake & Output 03/28/24 03/29/24 03/29/24 18:59 06:59 18:59 Weight 58.06 kg - Labs CBC & Chem 7: 03/29/24 03:00 03/28/24 14:39 Labs: Abnormal Lab Results - Last 24 Hours (Table) 03/28/24 03/28/24 03/28/24 Range/Units 14:39 14:39 14:39 WBC 17.6 H (3.8-10.6) k/uL RBC (4.10-5.20) X 10*6/uL Hgb (12.0-15.0) g/dL Hct (37.2-46.3) % Immature Gran # (0.00-0.04) X 10*3/uL Neutrophils # 15.6 H (1.3-7.7) k/uL Lymphocytes # (0.90-5.00) X 10*3/uL Eosinophils # (0.04-0.35) X 10*3/uL D-Dimer 0.82 H (<0.60) mg/L FEU Sodium 136 L (137-145) mmol/L Chloride 113 H (98-107) mmol/L Carbon Dioxide 16 L (22-30) mmol/L BUN 3 L (7-17) mg/dL Creatinine 0.43 L (0.52-1.04) mg/dL C-Reactive Protein (<1.0) mg/dL Total Protein 5.9 L (6.3-8.2) g/dL Albumin 3.4 L (3.5-5.0) g/dL 03/29/24 03/29/24 Range/Units 03:00 03:00 WBC 19.46 H (3.8-10.6) k/uL RBC 3.74 L (4.10-5.20) X 10*6/uL Hgb 11.7 L (12.0-15.0) g/dL Hct 34.1 L (37.2-46.3) % Immature Gran # 0.20 H (0.00-0.04) X 10*3/uL Neutrophils # 17.93 H (1.3-7.7) k/uL Lymphocytes # 0.74 L (0.90-5.00) X 10*3/uL Eosinophils # 0 L (0.04-0.35) X 10*3/uL D-Dimer (<0.60) mg/L FEU Sodium (137-145) mmol/L Chloride (98-107) mmol/L Carbon Dioxide (22-30) mmol/L BUN (7-17) mg/dL Creatinine (0.52-1.04) mg/dL C-Reactive Protein 5.0 H (<1.0) mg/dL Total Protein (6.3-8.2) g/dL Albumin (3.5-5.0) g/dL
[2024-03-29 12:35] LABS: African American GFR (CKD) >90 (>60 ml/min/1.73 sqM); Anion Gap 7 mmol/L; Blood Urea Nitrogen 4 mg/dL (7-17); Calcium 8.9 mg/dL (8.4-10.2); Carbon Dioxide 18 mmol/L (22-30); Chloride 110 mmol/L (98-107); Glucose 188 mg/dL (74-99); Non-African American GFR(CKD) >90 (>60 ml/min/1.73 sqM); Potassium 3.5 mmol/L (3.5-5.1); Sodium 135 mmol/L (137-145)
--- NOTE | 2024-03-29 16:23 | P.OBCN ---
History of Present Illness Consult date: 03/28/24 Reason for consult: other ( ) Chief complaint: asthma exacerbation History of present illness: 28 yo that presented to the ED with c/o asthma exacerbation. she is approx 23 weeks and has established care with [facility]. EDC 07/21/2024 based on 13 week US . she recently had her 20 week US reealing normal anatomy, complete previa is appreciated on US she denies VB, or crmaping. today she appears well but is receiving abreathing treatment at the time of my arrival. Review of Systems Constitutional: Reports fatigue Cardiovascular: Denies leg edema Respiratory: Reports dyspnea Genitourinary: Reports Past Medical History Past Medical History: Asthma Additional Past Medical History / Comment(s): ADHD. Patient had an upper endoscopy for a piece of stuck steak. Past obstetrical history: She has had 5 spontaneous vaginal deliveries 7 lbs. 0 oz. and 7 lbs. 4 oz. and she has had 2 spontaneous miscarriages, History of Any Multi-Drug Resistant Organisms: None Reported Past Surgical History: Orthopedic Surgery, Tonsillectomy Additional Past Surgical History / Comment(s): right knee surgery Past Anesthesia/Blood Transfusion Reactions: No Reported Reaction Past Psychological History: ADD/ADHD, Anxiety, Depression Smoking Status: Current every day smoker Past Alcohol Use History: None Reported Past Drug Use History: Marijuana - Past Family History Mother Family Medical History: No Reported History Medications and Allergies Home Medications Medication Instructions Recorded Confirmed Type Vit No.179/Iron/Folic 1 tab PO DAILY 02/09/23 03/28/24 History [ Tablet] Albuterol Inhaler [Ventolin Hfa 2 puff INHALATION RT-Q6H PRN 03/28/24 03/28/24 History Inhaler] Allergies Allergy/AdvReac Type Severity Reaction Status Date / Time No Known Allergies Allergy Verified 03/28/24 16:33 Exam Osteopathic Statement: *. No significant issues noted on an osteopathic structural exam other than those noted in the History and Physical/Consult. Vital Signs Temp Pulse Pulse Resp BP BP Pulse Ox 03/29/24 15:53 93 03/29/24 15:41 91 03/29/24 14:55 15 03/29/24 14:47 103/56 03/29/24 12:36 97.5 F L 84 15 89/46 96 03/29/24 12:00 106 H 03/29/24 11:52 103 H 03/29/24 08:45 88 03/29/24 08:44 94 L 03/29/24 08:28 84 03/29/24 07:29 97.7 F 80 15 96/61 95 03/29/24 06:39 98.4 F 89 18 100/60 97 03/29/24 04:38 86 03/29/24 04:25 83 03/29/24 03:00 94 20 97/52 97 03/29/24 02:00 94 20 102/62 98 03/29/24 01:00 97.9 F 100 20 95/60 98 03/29/24 00:44 96 03/29/24 00:33 95 03/28/24 23:00 98 20 109/70 97 03/28/24 20:00 98.4 F 117 H 20 118/64 97 03/28/24 19:56 100 03/28/24 19:44 104 H 03/28/24 18:00 115 H 22 112/76 95 pt appears well on my arrival to the room alert and oriented. receiving a breathing treatment with respiratory. FHTs done via doppler q shift by OB RN. Results Result Diagrams: 03/29/24 03:00 03/29/24 11:51 Abnormal Lab Results - Last 24 Hours (Table) 03/29/24 03/29/24 03/29/24 Range/Units 03:00 03:00 11:51 WBC 19.46 H (4.50-10.00) X 10*3/uL RBC 3.74 L (4.10-5.20) X 10*6/uL Hgb 11.7 L (12.0-15.0) g/dL Hct 34.1 L (37.2-46.3) % Immature Gran # 0.20 H (0.00-0.04) X 10*3/uL Neutrophils # 17.93 H (1.80-7.70) X 10*3/uL Lymphocytes # 0.74 L (0.90-5.00) X 10*3/uL Eosinophils # 0 L (0.04-0.35) X 10*3/uL Sodium 135 L (137-145) mmol/L Chloride 110 H (98-107) mmol/L Carbon Dioxide 18 L (22-30) mmol/L BUN 4 L (7-17) mg/dL Creatinine 0.43 L (0.52-1.04) mg/dL Glucose 188 H (74-99) mg/dL C-Reactive Protein 5.0 H (<1.0) mg/dL Microbiology - Last 24 Hours (Table) 03/29/24 04:20 Gram Stain - Preliminary Sputum Assessment and Plan (1) 23 weeks gestation of Current Visit: Yes Status: Acute Code(s): Z3A.23 - 23 WEEKS GESTATION OF SNOMED Code(s): 31022455 (2) Complete placenta previa nos or without hemorrhage, second trimester Current Visit: Yes Status: Acute Code(s): O44.02 - COMPLETE PLACENTA PREVIA NOS OR WITHOUT HEMOR, SECOND TRI SNOMED Code(s): 1684403 (3) Asthma exacerbation Current Visit: Yes Status: Acute Code(s): J45.901 - UNSPECIFIED ASTHMA WITH (ACUTE) EXACERBATION SNOMED Code(s): 707776666 (4) Atypical pneumonia Current Visit: Yes Status: Acute Code(s): J18.9 - PNEUMONIA, UNSPECIFIED ORGANISM SNOMED Code(s): 439252777 Plan: 28 [id number] at 23 week of pregnacy admited for asthma exacerbation. will follow with FHTs via dopplet q shift while she is admitted. Plan of care discussed gayle ramos and she states understanding, has FU scheduled at [facility] per her last visit. continued pelvic rest given complete previa.
[2024-03-29] MEDS: guaiFENesin SYRUP 100MG/5ML 200 MG/10 ML CUP PO PRN (16:35)
[2024-03-29] MEDS: FORMOTEROL FUMARATE 20 MCG/2 ML NEBU INHALATION SCH (20:10)
[2024-03-29] MEDS: MONTELUKAST 10 MG TAB PO SCH (20:52)
[2024-03-30 08:31] LABS: Basophils # (A) 0.03 X 10*3/uL (0.00-0.10); Basophils % (A) 0.1 %; Eosinophils # (A) 0 X 10*3/uL (0.04-0.35); Eosinophils % (A) 0 %; HCT 31.5 % (37.2-46.3); HGB 10.6 g/dL (12.0-15.0); Lymphocytes # (A) 0.89 X 10*3/uL (0.90-5.00); Lymphocytes % (A) 4.4 %; MCH 31.7 pg (27.0-32.0); MCHC 33.7 g/dL (32.0-37.0); MCV 94.3 FL (80.0-97.0); Mean Platelet Volume 11.5 FL (9.5-12.2); Monocytes # (A) 0.58 X 10*3/uL (0.20-1.00); Monocytes % (A) 2.9 %; NRBC Per 100 WBC 0 X 10*3/uL (0.00-0.01); Neutrophils # (A) 18.31 X 10*3/uL (1.80-7.70); Neutrophils % (A) 91.5 %; Platelet Count 219 X 10*3/uL (140-440); RBC 3.34 X 10*6/uL (4.10-5.20); RDW 12.4 % (11.5-14.5); WBC 20.03 X 10*3/uL (4.50-10.00)
--- NOTE | 2024-03-30 10:45 | P.PN ---
Subjective Progress Note Date: 03/30/24 Principal diagnosis: Shortness of breath. Patient is a 28-year-old female with past medical history significant for asthma and chronic ongoing tobacco dependence. She is also currently 23 weeks . She is a A2. Her construction project mgr is Dr. Kaufman. Patient's asthma is fairly uncontrolled at baseline. States that she had uses her albuterol inhaler quite frequently at least 2 times per day. She is in between primary care providers. She currently smokes tobacco and is down to 5 cigarettes/day. Previously heavy smoker, started when she was 6 years old, smoking 1 to 1-1/2 packs/day up until recently. Over the last 24 to 48 hours. Patient's day persistent cough with yellow to green sputum production. Her chest is sore especially with coughing and deep breathing. She is progressively become more short of breath. She has been wheezing. Has not had much relief from her albuterol rescue inhaler over the last 24 hrs. Denies sick contacts. Chest x- ray taken on arrival demonstrates mild interstitial infiltrates and small area of patchy density in the right upper lobe. Differential includes bronchitis or atypical pneumonias. Negative for influenza, RSV, COVID. CBC: WBC count 17.6, hemoglobin 12.7, hematocrit 39, platelets 230. CMP: Sodium 136, potassium 3.5, chloride 113, serum bicarb 16, BUN 3, creatinine 0.43, glucose 92. LFTs unremarkable. Troponin less than 0.012. D-dimer was mildly elevated 0.82. Patient denies any unilateral leg swelling. Denies any history of blood clots. Denies any chest pain. Patient's asthma is clearly active. She has been started on combination of bronchodilators [id number] and IV Solu-Medrol. Also, empirically covered in the emergency department on a combination of azithromycin and Rocephin. She is resting comfortably on 2 L/min nasal cannula. SpO2 98%. On auscultation, there are diffuse expiratory wheezes and coarse rhonchi. Progress note dated March 30, 2024. 28-year-old female seen in room 523. She was admitted with a diagnosis of , and asthma exacerbation. She is on 2 L of oxygen. Saturations are 98%. Procalcitonin level was 0.06. Antibiotics will be discontinued. The patient remains bronchospastic, and is not yet ready for discharge. Current labs include a white count 20.03, hemoglobin 10.6, hematocrit 31.5, and a normal platelet count. Objective - Vital Signs Vital signs: Vital Signs Temp 97.9 F 03/30/24 07:17 Pulse 110 H 03/30/24 07:57 Resp 16 03/30/24 07:17 BP 91/54 03/30/24 07:17 Pulse Ox 98 03/30/24 07:39 FiO2 Intake & Output 03/29/24 03/30/24 03/30/24 18:59 06:59 18:59 Intake Total 100 Balance 100 Weight 58.06 kg Intake: Intake, IV Titration 100 Amount cefTRIAXone 2 gm In 100 Sodium Chloride 0.9% 50 ml @ 100 mls/hr IVPB Q24HR [facility] Rx#:[id number] Other: # Voids 4 - Exam No acute distress, oriented 3. Currently on 2 L of oxygen. No audible wheezing. No use of accessory muscles. HEENT examination is grossly unremarkable. Mucous membranes are moist. No oral lesions. Neck supple. Full range of motion. No adenopathy thyromegaly or neck vein distention. Cardiovascular examination reveals regular rhythm rate. S1-S2 normal. No S3 or S4. No discernible murmur noted. Lungs reveal aspiratory and expiratory wheezes and rhonchi. No crackles. Breath sounds equal. There is prolongation on forced maneuver. Abdomen soft bowel sounds are heard. No masses or tenderness. Extremities are intact. No cyanosis clubbing or edema. Skin is without rash or lesion. Neurologic examination is brief but nonfocal. - Labs CBC & Chem 7: 03/30/24 03:10 03/29/24 11:51 Labs: Abnormal Lab Results - Last 24 Hours (Table) 03/29/24 03/30/24 Range/Units 11:51 03:10 WBC 20.03 H (4.50-10.00) X 10*3/uL RBC 3.34 L (4.10-5.20) X 10*6/uL Hgb 10.6 L (12.0-15.0) g/dL Hct 31.5 L (37.2-46.3) % Immature Gran # 0.22 H (0.00-0.04) X 10*3/uL Neutrophils # 18.31 H (1.80-7.70) X 10*3/uL Lymphocytes # 0.89 L (0.90-5.00) X 10*3/uL Eosinophils # 0 L (0.04-0.35) X 10*3/uL Sodium 135 L (137-145) mmol/L Chloride 110 H (98-107) mmol/L Carbon Dioxide 18 L (22-30) mmol/L BUN 4 L (7-17) mg/dL Creatinine 0.43 L (0.52-1.04) mg/dL Glucose 188 H (74-99) mg/dL Microbiology - Last 24 Hours (Table) 03/28/24 18:32 Blood Culture - Preliminary Blood 03/29/24 04:20 Gram Stain - Preliminary Sputum Assessment and Plan Assessment: Acute asthma exacerbation, possibly secondary to acute bronchitis or atypical pneumonia. Acute hypoxemic respiratory failure, secondary to above. Acute leukocytosis. Non-anion gap metabolic acidosis. , 23 weeks gestation. A2. Chronic ongoing tobacco dependence, down to 5 cigarettes/day. Plan: Plan dated March 30, 2024. The patient's procalcitonin level was 0.06. We do not believe she has an active infection. Antibiotics were discontinued. She continues on appropriate medications including bronchodilators, Singulair, and corticosteroids. The patient is still quite bronchospastic and is not yet ready for discharge. We will continue to follow make recommendations along the way. We will need her to follow-up in the pulmonary office, after discharge. Time with Patient: Less than 30
--- NOTE | 2024-03-30 11:20 | P.PN ---
Subjective Progress Note Date: 03/30/24 Patient is a 28-year-old female with a past medical history of asthma and tobacco abuse and is 23 weeks who presents to the ED with shortness of breath. Patient states that yesterday she had a cough and when she woke up this morning she felt short of breath. She states that she used her rescue inhaler which did not provide any relief so she decided to come into the emergency room. She states that her is going well. She states that she had placenta previa. She states that she has been gaining weight appropriately. She states that she is still smoking about 5 cigarettes a day. She said she was smoking 1 pack before and has cut down significantly since she became . In the ED patient was tachycardic. Patient's WBC 17.6, D-dimer 0.82, bicarb 16. Influenza RSV and COVID-negative. Chest x-ray showed mild interstitial infiltrates and small area of patchy density at the right upper lobe. Patient was given breathing treatment and IV dexamethasone 10 mg and magnesium sulfate 1 g with no improvement so was referred for admission. Patient was started on IV steroids [id number] and DuoNeb [id number] and also as needed DuoNeb. Patient also distended on IV Rocephin and azithromycin. Pulmonology following the patient. PATROL OFFICER consulted to monitor fetus. Patient seen today. She states that she is feeling better today compared to yesterday. However she still feels short of breath. Physical exam General examination - Alert and Oriented 3 in NAD Heart - + S1S2 no murmurs Lungs -bilateral wheezing Abdomen soft NT ND +ve BS Extremities - No edema SENIOR APPLICATIONS DEVELOPER - Moving all 4 extremities spontaneously Psych - Calm and cooperative Assessment and plan Acute severe asthma exacerbation Acute bronchitis Will start the patient on IV Solu-Medrol 40 mg every 12 hours Continue with DuoNeb 4 times a day and also as needed Procalcitonin within normal limits so antibiotics discontinued Patient completed course of azithromycin Follow-up on blood culture Reviewed pulmonology note. WBC this morning is 20. This could be elevated due to steroids. Patient states that she is feeling better however still short of breath. Mildly elevated D-dimer This is likely due to Doubt patient has pulmonary embolism as the most likely etiology of her shortness of breath is pneumonia with bronchitis since patient has significant wheezing on exam patient Reviewed note from PATROL OFFICER Continue vitamin DVT prophylaxis: Encourage early ambulation Objective - Vital Signs Vital signs: Vital Signs Temp 97.9 F 03/30/24 07:17 Pulse 110 H 03/30/24 07:57 Resp 16 03/30/24 07:17 BP 91/54 03/30/24 07:17 Pulse Ox 98 03/30/24 07:39 FiO2 Intake & Output 03/29/24 03/30/24 03/30/24 18:59 06:59 18:59 Intake Total 100 Balance 100 Weight 58.06 kg Intake: Intake, IV Titration 100 Amount cefTRIAXone 2 gm In 100 Sodium Chloride 0.9% 50 ml @ 100 mls/hr IVPB Q24HR [facility] Rx#:[id number] Other: # Voids 4 - Labs CBC & Chem 7: 03/30/24 03:10 03/29/24 11:51 Labs: Abnormal Lab Results - Last 24 Hours (Table) 03/29/24 03/30/24 Range/Units 11:51 03:10 WBC 20.03 H (4.50-10.00) X 10*3/uL RBC 3.34 L (4.10-5.20) X 10*6/uL Hgb 10.6 L (12.0-15.0) g/dL Hct 31.5 L (37.2-46.3) % Immature Gran # 0.22 H (0.00-0.04) X 10*3/uL Neutrophils # 18.31 H (1.80-7.70) X 10*3/uL Lymphocytes # 0.89 L (0.90-5.00) X 10*3/uL Eosinophils # 0 L (0.04-0.35) X 10*3/uL Sodium 135 L (137-145) mmol/L Chloride 110 H (98-107) mmol/L Carbon Dioxide 18 L (22-30) mmol/L BUN 4 L (7-17) mg/dL Creatinine 0.43 L (0.52-1.04) mg/dL Glucose 188 H (74-99) mg/dL Microbiology - Last 24 Hours (Table) 03/29/24 04:20 Gram Stain - Preliminary Sputum Sputum Culture - Preliminary 03/28/24 18:32 Blood Culture - Preliminary Blood
[2024-03-31] MEDS: predniSONE 20 MG TAB PO SCH (08:04)
[2024-03-31 09:01] LABS: Basophils # (A) 0.03 X 10*3/uL (0.00-0.10); Basophils % (A) 0.2 %; Eosinophils # (A) 0 X 10*3/uL (0.04-0.35); Eosinophils % (A) 0 %; HCT 31.6 % (37.2-46.3); HGB 10.5 g/dL (12.0-15.0); Lymphocytes # (A) 1.25 X 10*3/uL (0.90-5.00); Lymphocytes % (A) 7.1 %; MCH 31.2 pg (27.0-32.0); MCHC 33.2 g/dL (32.0-37.0); MCV 93.8 FL (80.0-97.0); Mean Platelet Volume 11.3 FL (9.5-12.2); Monocytes % (A) 2.8 %; NRBC Per 100 WBC 0 X 10*3/uL (0.00-0.01); Neutrophils # (A) 15.55 X 10*3/uL (1.80-7.70); Neutrophils % (A) 87.8 %; Platelet Count 219 X 10*3/uL (140-440); RBC 3.37 X 10*6/uL (4.10-5.20); RDW 12.8 % (11.5-14.5)
[2024-03-31 09:34] LABS: BUN/Creat Ratio 21.25 Ratio (12.00-20.00); Blood Urea Nitrogen 8.5 mg/dL (9.0-27.0); Calcium 8.2 mg/dL (8.7-10.3); Carbon Dioxide 17.9 mmol/L (21.6-31.8); Chloride 105 mmol/L (96-109); Glucose 117 mg/dL (70-110); Potassium 4.5 mmol/L (3.5-5.5); Sodium 135 mmol/L (135-145)
--- NOTE | 2024-03-31 12:19 | P.PN ---
Subjective Progress Note Date: 03/31/24 Patient is a 28-year-old female with a past medical history of asthma and tobacco abuse and is 23 weeks who presents to the ED with shortness of breath. Patient states that yesterday she had a cough and when she woke up this morning she felt short of breath. She states that she used her rescue inhaler which did not provide any relief so she decided to come into the emergency room. She states that her is going well. She states that she had placenta previa. She states that she has been gaining weight appropriately. She states that she is still smoking about 5 cigarettes a day. She said she was smoking 1 pack before and has cut down significantly since she became . In the ED patient was tachycardic. Patient's WBC 17.6, D-dimer 0.82, bicarb 16. Influenza RSV and COVID-negative. Chest x-ray showed mild interstitial infiltrates and small area of patchy density at the right upper lobe. Patient was given breathing treatment and IV dexamethasone 10 mg and magnesium sulfate 1 g with no improvement so was referred for admission. Patient was started on IV steroids [id number] and DuoNeb [id number] and also as needed DuoNeb. Patient also distended on IV Rocephin and azithromycin. Pulmonology following the patient. BREAKER BOSS consulted to monitor fetus. Patient states that her breathing is improving. She does not feel like she is ready to go home yet. Physical exam General examination - Alert and Oriented 3 in NAD Heart - + S1S2 no murmurs Lungs -bilateral wheezing Abdomen soft NT ND +ve BS Extremities - No edema REGULATORY PROCESS MANAGER - Moving all 4 extremities spontaneously Psych - Calm and cooperative Assessment and plan Acute severe asthma exacerbation Acute bronchitis Pulmonology switch patient from IV steroids to oral steroids prednisone 40 mg daily Continue with DuoNeb 4 times a day and also as needed Procalcitonin within normal limits so antibiotics discontinued Patient completed course of azithromycin Follow-up on blood culture Reviewed pulmonology note. WBC this morning is 17. Improving Patient states that she is feeling better however still short of breath. Anticipate patient be ready for discharge in the next 24 hours Mildly elevated D-dimer This is likely due to Doubt patient has pulmonary embolism as the most likely etiology of her shortness of breath is pneumonia with bronchitis since patient has significant wheezing on exam patient Reviewed note from BREAKER BOSS Continue vitamin DVT prophylaxis: Encourage early ambulation Objective - Vital Signs Vital signs: Vital Signs Temp 97.9 F 03/31/24 07:34 Pulse 80 03/31/24 11:23 Resp 19 03/31/24 07:34 BP 99/56 03/31/24 07:34 Pulse Ox 96 03/31/24 07:43 FiO2 Intake & Output 03/30/24 03/31/24 03/31/24 18:59 06:59 18:59 Intake Total 1080 120 Balance 1080 120 Intake: Oral 1080 120 - Labs CBC & Chem 7: 03/31/24 03:27 03/31/24 03:27 Labs: Abnormal Lab Results - Last 24 Hours (Table) 03/31/24 03/31/24 Range/Units 03:27 03:27 WBC 17.70 H (4.50-10.00) X 10*3/uL RBC 3.37 L (4.10-5.20) X 10*6/uL Hgb 10.5 L (12.0-15.0) g/dL Hct 31.6 L (37.2-46.3) % Immature Gran # 0.37 H (0.00-0.04) X 10*3/uL Neutrophils # 15.55 H (1.80-7.70) X 10*3/uL Eosinophils # 0 L (0.04-0.35) X 10*3/uL Carbon Dioxide 17.9 L (21.6-31.8) mmol/L Anion Gap 12.10 H (4.00-12.00) mmol/L BUN 8.5 L (9.0-27.0) mg/dL Creatinine 0.4 L (0.6-1.5) mg/dL BUN/Creatinine Ratio 21.25 H (12.00-20.00) Ratio Glucose 117 H (70-110) mg/dL Calcium 8.2 L (8.7-10.3) mg/dL Microbiology - Last 24 Hours (Table) 03/29/24 04:20 Gram Stain - Final Sputum Sputum Culture - Final 03/28/24 18:32 Blood Culture - Preliminary Blood
--- NOTE | 2024-03-31 13:14 | P.PN ---
Subjective Progress Note Date: 03/31/24 Principal diagnosis: Shortness of breath. Patient is a 28-year-old female with past medical history significant for asthma and chronic ongoing tobacco dependence. She is also currently 23 weeks . She is a A2. Her electrician's assistant is Dr. Kaufman. Patient's asthma is fairly uncontrolled at baseline. States that she had uses her albuterol inhaler quite frequently at least 2 times per day. She is in between primary care providers. She currently smokes tobacco and is down to 5 cigarettes/day. Previously heavy smoker, started when she was 6 years old, smoking 1 to 1-1/2 packs/day up until recently. Over the last 24 to 48 hours. Patient's day persistent cough with yellow to green sputum production. Her chest is sore especially with coughing and deep breathing. She is progressively become more short of breath. She has been wheezing. Has not had much relief from her albuterol rescue inhaler over the last 24 hrs. Denies sick contacts. Chest x- ray taken on arrival demonstrates mild interstitial infiltrates and small area of patchy density in the right upper lobe. Differential includes bronchitis or atypical pneumonias. Negative for influenza, RSV, COVID. CBC: WBC count 17.6, hemoglobin 12.7, hematocrit 39, platelets 230. CMP: Sodium 136, potassium 3.5, chloride 113, serum bicarb 16, BUN 3, creatinine 0.43, glucose 92. LFTs unremarkable. Troponin less than 0.012. D-dimer was mildly elevated 0.82. Patient denies any unilateral leg swelling. Denies any history of blood clots. Denies any chest pain. Patient's asthma is clearly active. She has been started on combination of bronchodilators [id number] and IV Solu-Medrol. Also, empirically covered in the emergency department on a combination of azithromycin and Rocephin. She is resting comfortably on 2 L/min nasal cannula. SpO2 98%. On auscultation, there are diffuse expiratory wheezes and coarse rhonchi. Progress note dated March 30, 2024. 28-year-old female seen in room 523. She was admitted with a diagnosis of , and asthma exacerbation. She is on 2 L of oxygen. Saturations are 98%. Procalcitonin level was 0.06. Antibiotics will be discontinued. The patient remains bronchospastic, and is not yet ready for discharge. Current labs include a white count 20.03, hemoglobin 10.6, hematocrit 31.5, and a normal platelet count. Progress note dated April 08, 2024. 28-year-old female who was admitted with a diagnosis of asthma exacerbation. She is seen today in room 523. She is also 23 weeks . She is doing much better. He feels much better. Not quite ready for discharge. Current labs include a white count of 17.7, hemoglobin 10.5, hematocrit 31.6, and a platelet count of 219,000. Sodium 135, potassium 4.5, chlorides 105, CO2 18, BUN 8.5, and creatinine is 0.4. Glucose is 117. Calcium is 8.2. Objective - Vital Signs Vital signs: Vital Signs Temp 97.9 F 03/31/24 07:34 Pulse 80 03/31/24 11:23 Resp 19 03/31/24 07:34 BP 99/56 03/31/24 07:34 Pulse Ox 96 03/31/24 07:43 FiO2 Intake & Output 03/30/24 03/31/24 03/31/24 18:59 06:59 18:59 Intake Total 1080 120 Balance 1080 120 Intake: Oral 1080 120 - Exam No acute distress, oriented 3. Currently on 2 L of oxygen. No audible wheezing. No use of accessory muscles. HEENT examination is grossly unremarkable. Mucous membranes are moist. No oral lesions. Neck supple. Full range of motion. No adenopathy thyromegaly or neck vein distention. Cardiovascular examination reveals regular rhythm rate. S1-S2 normal. No S3 or S4. No discernible murmur noted. Lungs reveal aspiratory and expiratory wheezes and rhonchi. No crackles. Breath sounds equal. There is prolongation on forced maneuver. Abdomen soft bowel sounds are heard. No masses or tenderness. Extremities are intact. No cyanosis clubbing or edema. Skin is without rash or lesion. Neurologic examination is brief but nonfocal. - Labs CBC & Chem 7: 03/31/24 03:27 03/31/24 03:27 Labs: Abnormal Lab Results - Last 24 Hours (Table) 03/31/24 03/31/24 Range/Units 03:27 03:27 WBC 17.70 H (4.50-10.00) X 10*3/uL RBC 3.37 L (4.10-5.20) X 10*6/uL Hgb 10.5 L (12.0-15.0) g/dL Hct 31.6 L (37.2-46.3) % Immature Gran # 0.37 H (0.00-0.04) X 10*3/uL Neutrophils # 15.55 H (1.80-7.70) X 10*3/uL Eosinophils # 0 L (0.04-0.35) X 10*3/uL Carbon Dioxide 17.9 L (21.6-31.8) mmol/L Anion Gap 12.10 H (4.00-12.00) mmol/L BUN 8.5 L (9.0-27.0) mg/dL Creatinine 0.4 L (0.6-1.5) mg/dL BUN/Creatinine Ratio 21.25 H (12.00-20.00) Ratio Glucose 117 H (70-110) mg/dL Calcium 8.2 L (8.7-10.3) mg/dL Microbiology - Last 24 Hours (Table) 03/29/24 04:20 Gram Stain - Final Sputum Sputum Culture - Final 03/28/24 18:32 Blood Culture - Preliminary Blood Assessment and Plan Assessment: Acute asthma exacerbation, possibly secondary to acute bronchitis or atypical pneumonia. Acute hypoxemic respiratory failure, secondary to above. Acute leukocytosis. Non-anion gap metabolic acidosis. , 23 weeks gestation. A2. Chronic ongoing tobacco dependence, down to 5 cigarettes/day. Plan: Plan dated March 30, 2024. The patient's procalcitonin level was 0.06. We do not believe she has an active infection. Antibiotics were discontinued. She continues on appropriate medications including bronchodilators, Singulair, and corticosteroids. The patient is still quite bronchospastic and is not yet ready for discharge. We will continue to follow make recommendations along the way. We will need her to follow-up in the pulmonary office, after discharge. Plan dated March 31, 2024. The patient is not quite ready for discharge. The patient may need 1 more day. Additional recommendations and suggestions are forthcoming. Labs, x-rays, and all medications are reviewed. Prognosis is guarded. The patient is counseled about the importance of smoking cessation. She will likely will also need a maintenance inhaler, at discharge. Time with Patient: Less than 30
[2024-03-31 20:26] VITALS: RESP 16
--- NOTE | 2024-04-01 06:50 | P.PN ---
Subjective Progress Note Date: 04/01/24 Principal diagnosis: Shortness of breath. Patient is a 28-year-old female with past medical history significant for asthma and chronic ongoing tobacco dependence. She is also currently 23 weeks . She is a A2. Her grinder chipper is Dr. Kaufman. Patient's asthma is fairly uncontrolled at baseline. States that she had uses her albuterol inhaler quite frequently at least 2 times per day. She is in between primary care providers. She currently smokes tobacco and is down to 5 cigarettes/day. Previously heavy smoker, started when she was 6 years old, smoking 1 to 1-1/2 packs/day up until recently. Over the last 24 to 48 hours. Patient's day persistent cough with yellow to green sputum production. Her chest is sore especially with coughing and deep breathing. She is progressively become more short of breath. She has been wheezing. Has not had much relief from her albuterol rescue inhaler over the last 24 hrs. Denies sick contacts. Chest x- ray taken on arrival demonstrates mild interstitial infiltrates and small area of patchy density in the right upper lobe. Differential includes bronchitis or atypical pneumonias. Negative for influenza, RSV, COVID. CBC: WBC count 17.6, hemoglobin 12.7, hematocrit 39, platelets 230. CMP: Sodium 136, potassium 3.5, chloride 113, serum bicarb 16, BUN 3, creatinine 0.43, glucose 92. LFTs unremarkable. Troponin less than 0.012. D-dimer was mildly elevated 0.82. Patient denies any unilateral leg swelling. Denies any history of blood clots. Denies any chest pain. Patient's asthma is clearly active. She has been started on combination of bronchodilators [id number] and IV Solu-Medrol. Also, empirically covered in the emergency department on a combination of azithromycin and Rocephin. She is resting comfortably on 2 L/min nasal cannula. SpO2 98%. On auscultation, there are diffuse expiratory wheezes and coarse rhonchi. Progress note dated March 30, 2024. 28-year-old female seen in room 523. She was admitted with a diagnosis of , and asthma exacerbation. She is on 2 L of oxygen. Saturations are 98%. Procalcitonin level was 0.06. Antibiotics will be discontinued. The patient remains bronchospastic, and is not yet ready for discharge. Current labs include a white count 20.03, hemoglobin 10.6, hematocrit 31.5, and a normal platelet count. Progress note dated March 31, 2024. 28-year-old female who was admitted with a diagnosis of asthma exacerbation. She is seen today in room 523. She is also 23 weeks . She is doing much better. He feels much better. Not quite ready for discharge. Current labs include a white count of 17.7, hemoglobin 10.5, hematocrit 31.6, and a platelet count of 219,000. Sodium 135, potassium 4.5, chlorides 105, CO2 18, BUN 8.5, and creatinine is 0.4. Glucose is 117. Calcium is 8.2. Progress note dated April 01, 2024. 28-year-old female with a history of chronic bronchial asthma. The patient is seen in room 523. She continues on O2 at 2 L. No IV fluids. Clinically, she is improved. She is less bronchospastic. No new labs today as yet. She continues on appropriate medications. She is 23 weeks . She follows with Dr. Kaufman, for her . The patient was smoking at home. We c ounseled her about the importance of smoking cessation. We would also like to see her in the office after discharge, for pulmonary function testing. Objective - Vital Signs Vital signs: Vital Signs Temp 98.4 F 04/01/24 01:53 Pulse 81 04/01/24 01:53 Resp 16 04/01/24 01:53 BP 94/58 04/01/24 01:53 Pulse Ox 99 04/01/24 01:53 FiO2 Intake & Output 03/31/24 03/31/24 04/01/24 06:59 18:59 06:59 Intake Total 120 Balance 120 Intake: Oral 120 Other: # Voids 3 - Exam No acute distress, oriented 3. Currently on 2 L of oxygen. No audible wheezing. No use of accessory muscles. HEENT examination is grossly unremarkable. Mucous membranes are moist. No oral lesions. Neck supple. Full range of motion. No adenopathy thyromegaly or neck vein distention. Cardiovascular examination reveals regular rhythm rate. S1-S2 normal. No S3 or S4. No discernible murmur noted. Lungs reveal improved expiratory wheezes and rhonchi. Breath sounds equal bilaterally. There is prolongation on forced maneuver. No crackles. Saturations are 99%. Abdomen soft bowel sounds are heard. No masses or tenderness. Extremities are intact. No cyanosis clubbing or edema. Skin is without rash or lesion. Neurologic examination is brief but nonfocal. - Labs CBC & Chem 7: 03/31/24 03:27 03/31/24 03:27 Labs: Abnormal Lab Results - Last 24 Hours (Table) 03/31/24 03/31/24 Range/Units 03:27 03:27 WBC 17.70 H (4.50-10.00) X 10*3/uL RBC 3.37 L (4.10-5.20) X 10*6/uL Hgb 10.5 L (12.0-15.0) g/dL Hct 31.6 L (37.2-46.3) % Immature Gran # 0.37 H (0.00-0.04) X 10*3/uL Neutrophils # 15.55 H (1.80-7.70) X 10*3/uL Eosinophils # 0 L (0.04-0.35) X 10*3/uL Carbon Dioxide 17.9 L (21.6-31.8) mmol/L Anion Gap 12.10 H (4.00-12.00) mmol/L BUN 8.5 L (9.0-27.0) mg/dL Creatinine 0.4 L (0.6-1.5) mg/dL BUN/Creatinine Ratio 21.25 H (12.00-20.00) Ratio Glucose 117 H (70-110) mg/dL Calcium 8.2 L (8.7-10.3) mg/dL Microbiology - Last 24 Hours (Table) 03/28/24 18:32 Blood Culture - Preliminary Blood 03/29/24 04:20 Gram Stain - Final Sputum Sputum Culture - Final Assessment and Plan Assessment: Acute asthma exacerbation, without obvious bacterial infection. Acute hypoxemic respiratory failure, secondary to above. Acute leukocytosis. Non-anion gap metabolic acidosis. , 23 weeks gestation. A2. Chronic ongoing tobacco dependence, down to 5 cigarettes/day. Plan: Plan dated March 30, 2024. The patient's procalcitonin level was 0.06. We do not believe she has an active infection. Antibiotics were discontinued. She continues on appropriate medications including bronchodilators, Singulair, and corticosteroids. The patient is still quite bronchospastic and is not yet ready for discharge. We will continue to follow make recommendations along the way. We will need her to follow-up in the pulmonary office, after discharge. Plan dated March 31, 2024. The patient is not quite ready for discharge. The patient may need 1 more day. Additional recommendations and suggestions are forthcoming. Labs, x-rays, and all medications are reviewed. Prognosis is guarded. The patient is counseled about the importance of smoking cessation. She will likely will also need a maintenance inhaler, at discharge. Plan dated April 01, 2024. The patient could be considered for possible discharge. She should be discharged on prednisone with a taper. In addition, I would send her home with a rescue inhaler, singular 10 mg at bedtime, and to maintenance inhaler, such as Symbicort, Advair, Dulera, or Breo. I would like to see her in the office in follow-up. No additional recommendations are made. The patient is counseled ab out smoking cessation. Time with Patient: Less than 30
[2024-04-01 08:00] VITALS: BP 101/54; TEMP 97.4
[2024-04-01 09:17] LABS: Basophils # (A) 0.05 X 10*3/uL (0.00-0.10); Basophils % (A) 0.3 %; Eosinophils # (A) 0.03 X 10*3/uL (0.04-0.35); Eosinophils % (A) 0.2 %; HCT 30.7 % (37.2-46.3); HGB 10.3 g/dL (12.0-15.0); Lymphocytes % (A) 16.8 %; MCH 31.2 pg (27.0-32.0); MCHC 33.6 g/dL (32.0-37.0); Mean Platelet Volume 10.9 FL (9.5-12.2); Monocytes # (A) 1.12 X 10*3/uL (0.20-1.00); Monocytes % (A) 7.5 %; NRBC Per 100 WBC 0 X 10*3/uL (0.00-0.01); Neutrophils # (A) 10.64 X 10*3/uL (1.80-7.70); Neutrophils % (A) 71.4 %; Platelet Count 235 X 10*3/uL (140-440); RDW 12.6 % (11.5-14.5)
[2024-04-01 09:36] LABS: BUN/Creat Ratio 31.25 Ratio (12.00-20.00); Blood Urea Nitrogen 12.5 mg/dL (9.0-27.0); Chloride 104 mmol/L (96-109); Glucose 92 mg/dL (70-110); Potassium 3.9 mmol/L (3.5-5.5); Sodium 133 mmol/L (135-145)
[2024-04-01 09:37] LABS: Calcium 8.5 mg/dL (8.7-10.3); Carbon Dioxide 20.1 mmol/L (21.6-31.8)
[2024-04-01 11:48] VITALS: PULSE 99
--- NOTE | 2024-04-01 16:38 | P.DS ---
Providers Date of admission: 03/31/24 13:17 Expected date of discharge: 04/01/24 Attending physician: Ander Stoddard Consults: 03/28/24 16:47 Consult Physician Urgent Consulting Provider: Janel Kaufman Consult Reason/Comments: patient, 23 weeks Do you want consulting provider notified?: Yes 03/28/24 17:18 Consult Physician Urgent Consulting Provider: Osito Diaz Consult Reason/Comments: patient pnumonia and asthma exacerbation Do you want consulting provider notified?: Yes Primary care physician: Stated None Hospital Course: Discharge Diagnosis: Acute asthma exacerbation Acute bronchitis Mildly elevated D-dimer Persistent tachycardia On going tobacco abuse Hospital Course: Patient is a 28-year-old female with known asthma and tobacco abuse who is 23 weeks and presented to the ED with shortness of breath. She underwent extensive evaluation. In the ED patient was tachycardic. Patient's WBC 17.6, D-dimer 0.82, bicarb 16. Influenza RSV and COVID-negative. Chest x-ray showed mild interstitial infiltrates and small area of patchy density at the right upper lobe. She was started on breathing treatment and IV dexamethasone 10 mg and magnesium sulfate 1 g with no improvement and was subsequently admitted. She was continued on IV steroids and bronchodilators. Initially she was started antibiotics. Pulmonary was consulted. She was continued on antibiotics, bronchodilators, and steroids and had slow and continued improvement. Her hypoxemia resolved. O2 sat was stable with ambulation on 04/01 and she was determined stable for discharge home. Discharge instructions. Prednisone taper, albuterol HFA, Symbicort, will stop smoking, will follow-up with Dr. Diaz in [address] Ahmadi in 1 week. Already has appointment with Dr. Kaufman on 04/05 she can return to work on 04/04. She was counseled to stop smoking. Patient seen and examined at bedside. She is feeling much better. She feels comfortable going home. She does have some issues affording her medications. Vital signs reviewed and stable. General: Nontoxic, no distress, appears at stated age Cardiovascular: S1S2 reg, no murmur, positive posterior tibial pulse bilateral, Lungs: Tachypneic, mild rhonchi Abdominal: Soft, nontender to palpation, no guarding, no appreciable organomegaly Ext: No gross muscle atrophy, no edema b/l lower extremities, no contractures Neuro: CN II-XI grossly intact, no focal neuro deficits Psych: Alert, oriented, appropriate affect A total of 40 minutes of time were spent preparing this complex discharge summary. Patient was discharged on 04/01/24. This dictation was prepared using [email or web address] voice recognition software. Though every attempt is made to correct errors during dictation some may still exist. Plan - Discharge Summary Discharge Rx Participant: No New Discharge Prescriptions: New predniSONE [Deltasone] 0 mg PO DIRECTED #12 tab Montelukast [Singulair] 10 mg PO HS #30 tab Budesonide-Formot 160-4.5 Mcg [Symbicort 160-4.5 Mcg Inhaler] 2 puff INHALATION BID #1 each Albuterol Inhaler [Ventolin Hfa Inhaler] 2 puff INHALATION QID #8 gm Continue Vit No.179/Iron/Folic [ Tablet] 1 tab PO DAILY Discontinued Albuterol Inhaler [Ventolin Hfa Inhaler] 2 puff INHALATION RT-Q6H PRN PRN Reason: Shortness Of Breath Discharge Medication List Vit No.179/Iron/Folic [ Tablet] 1 tab PO DAILY 02/09/23 [History] Albuterol Inhaler [Ventolin Hfa Inhaler] 2 puff INHALATION QID #8 gm 04/01/24 [Rx] Budesonide-Formot 160-4.5 Mcg [Symbicort 160-4.5 Mcg Inhaler] 2 puff INHALATION BID #1 each 04/01/24 [Rx] Montelukast [Singulair] 10 mg PO HS #30 tab 04/01/24 [Rx] predniSONE [Deltasone] 0 mg PO DIRECTED #12 tab 04/01/24 [Rx] Follow up Appointment(s)/Referral(s): Osito Diaz DO [Doctor of Osteopathic Medicine] - 1 Week Carlitos Ahmadi MD [REFERRING] - 1 Week None,Stated [Primary Care Provider] - 1-2 days Janel Kaufman DO [Doctor of Osteopathic Medicine] - 1 Week (as already scheduled) Activity/Diet/Wound Care/Special Instructions: Activity: as tolerated Diet: regular Special Instructions: No smoking. Discharge/Stand Alone Forms: Work/School Release / Restrict Discharge Disposition: HOME SELF-CARE
== END 2024-04-01 12:26 | disposition home or self-care (01) | DRG 831 ==
LOC: EC 12:30 → 6NMEDSUR 16:14 → 5NMEDONC 03-29 01:15 → OBSVTOIN 03-31 13:17
PROVIDERS: ADMIT Student in an Organized Health Care Education/Training Program; ATTEND Student in an Organized Health Care Education/Training Program
DX: O99.512 Diseases of the respiratory system complicating pregnancy, second trimester (principal); J18.9 Pneumonia, unspecified organism; J96.01 Acute respiratory failure with hypoxia; J45.901 Unspecified asthma with (acute) exacerbation; E87.20 Acidosis, unspecified; O99.332 Smoking (tobacco) complicating pregnancy, second trimester; F17.210 Nicotine dependence, cigarettes, uncomplicated; J20.9 Acute bronchitis, unspecified; Z3A.23 23 weeks gestation of pregnancy; Z71.6 Tobacco abuse counseling; Z79.899 Other long term (current) drug therapy
CPT/HCPCS: 36415; 71046; 80048; 80053; 84145; 84484; 85025; 85379; 85610; 85730; 86140; 87040; 87070; 87205; 87449; 87636; 93005; 94640; 94760; 96365; 96366; 96367; 96368; 96375; 99285

== ENCOUNTER 2024-04-09 12:36 | Outpatient (CLI) | payer BC, OTHER ==
[2024-04-09 13:53] LABS: Appearance,Urine Clear (Clear); Bilirubin,Urine Negative (Negative); Blood,Urine Moderate (Negative); Color,Urine Colorless; Glucose,Urine (UA) Negative (Negative); Ketones,Urine Negative (Negative); Leukocyte Esterase,Urine Negative (Negative); Nitrite,Urine Negative (Negative); PH, Urine 7.5 (5.0-8.0); Protein,Urine Negative (Negative); Specific Gravity,Urine 1.004 (1.001-1.035); Squamous Epithelial Cell,Urine <1 /hpf (0-4); Urobilinogen,Urine <2.0 mg/dL (<2.0); WBC,Urine <1 /hpf (0-5)
[2024-04-09 14:06] LABS: Basophils # (A) 0.1 k/uL (0-0.2); Basophils % (A) 0 %; Eosinophils # (A) 0.3 k/uL (0-0.7); Eosinophils % (A) 2 %; HGB 11.3 gm/dL (11.4-16.0); Lymphocytes # (A) 1.8 k/uL (1.0-4.8); Lymphocytes % (A) 13 %; MCHC 33.3 g/dL (31.0-37.0); MCV 95.9 fL (80.0-100.0); Mean Platelet Volume 7.4; Monocytes # (A) 0.6 k/uL (0-1.0); Monocytes % (A) 4 %; Neutrophils # (A) 11.3 k/uL (1.3-7.7); Neutrophils % (A) 79 %; Platelet Count 252 k/uL (150-450); RBC 3.54 m/uL (3.80-5.40); RDW 12.1 % (11.5-15.5); WBC 14.2 k/uL (3.8-10.6)
[2024-04-09 15:21] VITALS: BP 107/59; PULSE 77; RESP 18; TEMP 97.5
--- NOTE | 2024-04-09 15:56 | US ---
EXAMINATION TYPE: US OB limited DATE OF EXAM: 04/09/2024 COMPARISON: NONE CLINICAL INDICATION: Female, 28 years old with history of vag bleeding; Known complete previa; pt cam e in with c/o vaginal bleeding and passing a clot EXAM PERFORMED: Transabdominal (TA) ultrasound of the gravid uterus GESTATIONAL AGE / DATING Physician Established: (25 weeks/2 days) EDC: 07/21/24 No growth performed on today?s study per ordering physician SURVEY PLACENTA: Posterior PREVIA: Complete Ultrasound evidence of abruption? NO LAZARO: 14.5 cm Normal Ultrasound evidence of premature rupture of membranes? NO CERVICAL LENGTH (transabdominal: norm > 3cm): 3.23 cm Ultrasound evidence of cervical incompetence? NO PRESENTATION: Variable LIE: Oblique HEART RATE: 144 bpm RHYTHM: Normal Possible varices noted near right side uterus. IMPRESSION: 1. Complete placenta previa. 2. Cervix is closed with length 3.23 cm. [facility], , 04/09/2024 3:53 PM
== END 2024-04-09 15:22 | disposition home or self-care (01) ==
LOC: FBPOP 12:36
PROVIDERS: ATTEND Obstetrics & Gynecology Obstetrics
CPT/HCPCS: 76815; 81001; 85025; 99215

== ENCOUNTER 2024-06-27 10:44 | Inpatient (IN) | payer BC, OTHER ==
[2024-06-27] MEDS: LACTATED RINGERS 1,000 ML IV ONE (11:01)
[2024-06-27] MEDS: ONDANSETRON 4 MG/2 ML VIAL IVP STA (11:04)
[2024-06-27 11:52] LABS: Appearance,Urine Clear (Clear); Bilirubin,Urine Negative (Negative); Blood,Urine Negative (Negative); Color,Urine Colorless; Glucose,Urine (UA) Negative (Negative); Ketones,Urine Negative (Negative); Leukocyte Esterase,Urine Trace (Negative); Mucus,Urine Rare /hpf; Nitrite,Urine Negative (Negative); PH, Urine 6.5 (5.0-8.0); Protein,Urine Negative (Negative); RBC,Urine <1 /hpf (0-5); Specific Gravity,Urine 1.007 (1.001-1.035); Squamous Epithelial Cell,Urine 1 /hpf (0-4); Urobilinogen,Urine <2.0 mg/dL (<2.0); WBC,Urine 2 /hpf (0-5)
[2024-06-27] MEDS ORDERED: CARBOPROST TROMETHAMINE 250 MCG/ML 1 ML AMP IM PRN (12:05)
[2024-06-27] MEDS ORDERED: miSOPROStoL 200 MCG TAB PO PRN (12:05)
[2024-06-27] MEDS ORDERED: METHYLERGONOVINE 0.2 MG/ML 1 ML AMP IM PRN (12:05)
[2024-06-27] MEDS ORDERED: TRANEXAMIC 1,000 MG/100ML-NACL 1,000 MG in EMPTY BAG 1 BAG IV PRN (12:05)
[2024-06-27] MEDS ORDERED: OXYTOCIN 10 UNIT/ML 1 ML VIAL IM PRN (12:05)
[2024-06-27 12:24] LABS: Basophils # (A) 0.1 k/uL (0-0.2); Basophils % (A) 1 %; Eosinophils # (A) 0.5 k/uL (0-0.7); Eosinophils % (A) 4 %; HGB 11.8 gm/dL (11.4-16.0); Lymphocytes # (A) 2.2 k/uL (1.0-4.8); Lymphocytes % (A) 17 %; MCH 30.2 pg (25.0-35.0); MCHC 32.9 g/dL (31.0-37.0); MCV 91.6 fL (80.0-100.0); Mean Platelet Volume 8.3; Monocytes # (A) 0.7 k/uL (0-1.0); Monocytes % (A) 5 %; Neutrophils # (A) 9.5 k/uL (1.3-7.7); Neutrophils % (A) 73 %; Platelet Count 217 k/uL (150-450); RBC 3.92 m/uL (3.80-5.40); WBC 13.1 k/uL (3.8-10.6)
[2024-06-27] MEDS: LACTATED RINGERS 1,000 ML IV SCH ×2 (12:27→21:14)
[2024-06-27] MEDS: CITRIC ACID-SODIUM CITRATE 15 ML CUP PO ONE (12:36)
[2024-06-27] MEDS ORDERED: ONDANSETRON 4 MG/2 ML VIAL ONE (12:44)
[2024-06-27] MEDS ORDERED: MORPHINE SULFATE (PF) 0.3 MG/0.3 ML SYR ONE (12:44)
[2024-06-27] MEDS ORDERED: fentaNYL (PF) 50 MCG/ML 2 ML AMP ONE (12:44)
[2024-06-27] MEDS ORDERED: OXYTOCIN 10 UNIT/ML 1 ML VIAL ONE (12:44)
[2024-06-27] MEDS ORDERED: NALBUPHINE (ANES) 10 MG/ML - 1 ML AMP ONE (12:44)
--- NOTE | 2024-06-27 13:29 | P.OP ---
Date of Procedure: 06/27/24 Preoperative Diagnosis: AP at 36 and 4, contractions, placenta previa Postoperative Diagnosis: Same Procedure(s) Performed: Primary low-transverse section with bilateral salpingectomy Anesthesia: spinal Surgeon: Janel Kaufman Supervisor Felting #1: Hollie Bradley Estimated Blood Loss (ml): 400 IV fluids (ml): 1,100 Urine output (ml): 200 (Clear yellow throughout the procedure) Pathology: other (Placenta) Condition: stable Disposition: observation Indications for Procedure: Placenta previa, contractions Operative Findings: Viable female infant delivered at 1301, weight of 6 pounds 2 ounces, Apgars of 8 and 9 at 1 and 5 minutes respectively. Description of Procedure: The patient was prepped and draped in the usual fashion after spinal anesthesia was administered by anesthesia department. A Pfannenstiel incision was made and extended of the abdominal cavity without difficulty. The bladder peritoneum was elevated and incised and reflected distally. A 2 cm incision was made in the transverse plane of the lower uterine segment to enter the uterus at which time clear fluid was noted. The incision was extended in both directions using the bandage scissors. The head was encountered within the field and delivered up and through the incision where the nose and mouth were thoroughly suctioned. Remainder of the infant was delivered onto the surgical field where the cord was doubly clamped, cut, and the infant was passed for resuscitative measures with weight and Apgars as noted above. The placenta was delivered manually, intact, and was grossly normal with a grossly normal three-vessel cord. The uterus was exteriorized and the interior cavity of the uterus swept of any remaining placental and membranous fragments with a laparotomy sponge. The margins of the incision were grasped with Allis clamps and the incision closed in 2 layers. First layer was a running locking layer of 0 Vicryl from margin to margin followed by a second layer of imbricating 0 Vicryl from margin to margin. Any small points of bleeding were then made hemostatic with the Bovie. Once hemostasis was achieved, the posterior cul-de-sac was suctioned with a guard and the uterine and ovarian findings are as noted above. The uterus was replaced within the abdominal cavity and the gutters swept of any remaining blood fluid or clot. The incision was again reexamined and hemostasis was noted to be excellent. Any small point of bleeding were made hemostatic with the Bovie. Once hemostasis was achieved the parietal peritoneum was loosely reapproximated. The layer of muscles were examined and made hemostatic with the Bovie. Attention was then turned to the fascia which was closed with 0 Vicryl in a running fashion from 1 lateral edge to the other.. The subcutaneous tissues were irrigated, made hemostatic with the Bovie, and reapproximated with a running stitch of 30 Vicryl. The skin was reapproximated with 4-0 Vicryl. Estimated blood loss for the case was approximately 400 mL. All sponge instrument and needle counts are correct. There were no complications. The patient tolerated the procedure well and proceeded to the recovery room in stable condition. Both mother and are resting comfortably in recovery.
[2024-06-27] MEDS ORDERED: NALOXONE 0.4 MG/ML 1 ML VIAL IV PRN (14:10)
[2024-06-27] MEDS ORDERED: diphenhydrAMINE 50 MG/ML 1 ML VIAL IVP PRN (14:10)
[2024-06-27] MEDS ORDERED: diphenhydrAMINE 25 MG CAP PO PRN (14:10)
[2024-06-27] MEDS ORDERED: ONDANSETRON 4 MG/2 ML VIAL IVP PRN (14:10)
[2024-06-27] MEDS ORDERED: ZOLPIDEM 5 MG TAB PO PRN (14:10)
[2024-06-27] MEDS ORDERED: diphenhydrAMINE 50 MG CAP PO PRN (14:10)
[2024-06-27] MEDS: ACETAMINOPHEN IV (For NPO) 1,000 MG in EMPTY BAG 1 BAG IVPB ONE (14:17)
[2024-06-27] MEDS: diphenhydrAMINE 50 MG/ML 1 ML VIAL IVP PRN (14:17)
[2024-06-27] MEDS: METOCLOPRAMIDE 5 MG/ML 2 ML VIAL IVP PRN (17:08)
[2024-06-27] MEDS: PROMETHAZINE SUPPOSITORY 25 MG SUPP RECTAL STA (18:16)
[2024-06-27] MEDS: IBUPROFEN IV 800 MG in SODIUM CHLORIDE 0.9% 250 ML IV ONE (18:17)
[2024-06-27] MEDS: SENNOSIDES-DOCUSATE SODIUM 1 EACH TAB PO SCH (21:16)
[2024-06-27] MEDS: ACETAMINOPHEN TAB 500 MG TAB PO SCH (22:07)
[2024-06-28] MEDS: IBUPROFEN 800 MG TAB PO SCH (02:51)
[2024-06-28 06:23] LABS: Basophils # (A) 0.1 k/uL (0-0.2); Basophils % (A) 0 %; Eosinophils # (A) 0.3 k/uL (0-0.7); Eosinophils % (A) 2 %; HCT 33.3 % (34.0-46.0); HGB 11.3 gm/dL (11.4-16.0); Lymphocytes # (A) 1.6 k/uL (1.0-4.8); Lymphocytes % (A) 13 %; MCH 30.9 pg (25.0-35.0); MCHC 33.8 g/dL (31.0-37.0); MCV 91.3 fL (80.0-100.0); Mean Platelet Volume 8.5; Monocytes # (A) 0.7 k/uL (0-1.0); Monocytes % (A) 5 %; Neutrophils # (A) 10.1 k/uL (1.3-7.7); Neutrophils % (A) 78 %; Platelet Count 213 k/uL (150-450); RBC 3.64 m/uL (3.80-5.40); WBC 12.9 k/uL (3.8-10.6)
[2024-06-28] MEDS: PRENATAL VIT-IRON-FOLIC ACID 1 EACH TABLET PO SCH (07:51)
--- NOTE | 2024-06-28 08:41 | P.PNOBGPC ---
Subjective - Subjective Principal diagnosis: Postop day 1, primary , placenta previa Interval history: Patient is doing well. She is ambulating without difficulty. Awaiting spontaneous void. She states her pain is well-controlled. She did struggle with no nausea postoperatively this has resolved. Patient reports: Reports appetite normal, Reports pain well controlled, Reports ambulating normally : doing well Objective - Vital Signs Latest vital signs: Vital Signs Temp Pulse Resp BP Pulse Ox 06/28/24 07:46 97.2 F L 76 16 111/72 96 06/28/24 04:30 97.0 F L 67 16 112/70 99 06/28/24 00:00 97.0 F L 65 15 107/74 99 06/27/24 21:00 97.8 F 63 16 106/55 99 06/27/24 15:30 55 L 16 101/56 06/27/24 15:00 66 16 103/56 06/27/24 14:15 79 16 109/77 06/27/24 14:00 64 16 105/74 06/27/24 13:45 63 16 102/69 06/27/24 13:30 64 16 105/61 100 06/27/24 12:32 98.2 F 76 16 100 Intake and Output 06/27/24 06/28/24 06/28/24 22:59 06:59 14:59 Intake Total 480 Output Total 642 500 Balance -162 -500 Intake: Oral 480 Output: Urine 550 500 Uretheral ([place]) 300 500 Output, Quantitative 92 Blood Loss Other: Voiding Method Toilet # Voids 0 0 - Exam Extremities: Present: normal, edema Abdomen: Present: normal appearance, soft Incision: Present: normal, dry, intact Uterus: Present: normal, firm - Labs Labs: Abnormal Lab Results - Last 24 Hours (Table) 06/27/24 06/27/24 06/28/24 Range/Units 11:33 12:15 05:48 WBC 13.1 H 12.9 H (3.8-10.6) k/uL RBC 3.64 L (3.80-5.40) m/uL Hgb 11.3 L (11.4-16.0) gm/dL Hct 33.3 L (34.0-46.0) % Neutrophils # 9.5 H 10.1 H (1.3-7.7) k/uL Ur Leukocyte Esterase Trace H (Negative) Urine Mucus Rare H (None) /hpf Assessment and Plan (1) 36 to 37 weeks gestation of Current Visit: Yes Status: Acute Code(s): BML7568 - SNOMED Code(s): 467344198 (2) Placenta previa Current Visit: Yes Status: Acute Code(s): O44.00 - COMPLETE PLACENTA PREVIA NOS OR WITHOUT HEMOR, UNSP TRI SNOMED Code(s): 30798351 (3) labor Current Visit: No Status: Acute Priority: High Code(s): O60.00 - LABOR WITHOUT DELIVERY, UNSPECIFIED TRIMESTER SNOMED Code(s): 8152798 (4) S/P section Current Visit: Yes Status: Acute Code(s): Z98.891 - HISTORY OF UTERINE SCAR FROM PREVIOUS SURGERY SNOMED Code(s): 440917577 Plan: Doing well postoperatively. Plan to continue routine postoperative care, awaiting spontaneous void.
--- NOTE | 2024-06-28 14:56 | P.PN ---
Progress Note - Text 06/28/23 631am 29-year-old female status post with spinal Duramorph. Patient seen and evaluated for postop pain control, she has a VAS of 5 with complaints of mild pruritus which should subside
[2024-06-28] MEDS ORDERED: IBUPROFEN 800 MG TAB PO SCH (16:00)
[2024-06-28] MEDS: SIMETHICONE 80 MG CHEWABLE PO PRN (16:19)
--- NOTE | 2024-06-29 06:59 | P.PNOBGPC ---
Subjective - Subjective Principal diagnosis: Postop day 2, primary , placenta previa Interval history: Patient is doing well postoperatively. She is ambulating and voiding without difficulty. She is tolerating a regular diet without nausea or vomiting. States her pain is well-controlled. Patient reports: Reports appetite normal, Reports voiding normally, Reports pain well controlled, Reports ambulating normally [place]: doing well Objective - Vital Signs Latest vital signs: Vital Signs Temp Pulse Resp BP Pulse Ox 06/28/24 23:10 98.0 F 63 16 122/72 98 06/28/24 16:00 97.5 F L 66 16 113/76 98 06/28/24 12:00 97.5 F L 66 16 112/73 98 06/28/24 07:46 97.2 F L 76 16 111/72 96 Intake and Output 06/28/24 06/28/24 06/29/24 14:59 22:59 06:59 Intake Total 600 Output Total 1200 Balance -1200 600 Intake: Oral 600 Output: Urine 1200 Other: Voiding Method Toilet Toilet # Voids 1 1 1 - Exam Extremities: Present: normal, edema Abdomen: Present: normal appearance, soft Incision: Present: normal, dry Uterus: Present: normal, firm Assessment and Plan (1) 36 to 37 weeks gestation of Current Visit: Yes Status: Acute Code(s): MIS5085 - SNOMED Code(s): 186390022 (2) Placenta previa Current Visit: Yes Status: Acute Code(s): O44.00 - COMPLETE PLACENTA PREVIA NOS OR WITHOUT HEMOR, UNSP TRI SNOMED Code(s): 02744300 (3) labor Current Visit: No Status: Acute Priority: High Code(s): O60.00 - LABOR WITHOUT DELIVERY, UNSPECIFIED TRIMESTER SNOMED Code(s): 4781742 (4) S/P section Current Visit: Yes Status: Acute Code(s): Z98.891 - HISTORY OF UTERINE SCAR FROM PREVIOUS SURGERY SNOMED Code(s): 781300046 Plan: Patient is doing well postoperatively. Continue routine postoperative care.
--- NOTE | 2024-06-30 08:26 | P.PNOBGPC ---
Subjective - Subjective Principal diagnosis: Postop day 3, primary with bilateral salpingectomy Interval history: Patient is doing well. Infant remains in nursery on IV antibiotics. She is ambulating and voiding without difficulty. Her lochia is minimal. She denies concerns. Patient reports: Reports appetite normal, Reports voiding normally, Reports pain well controlled, Reports ambulating normally [place]: doing well (Special care nursery), nursing well Objective - Vital Signs Latest vital signs: Vital Signs Temp Pulse Resp BP Pulse Ox 06/30/24 00:00 98.4 F 67 17 102/61 97 06/29/24 16:00 97.8 F 65 16 116/78 98 Intake and Output 06/29/24 06/30/24 06/30/24 22:59 06:59 14:59 Intake Total 480 Balance 480 Intake: Oral 480 Other: Voiding Method Toilet # Voids 2 1 - Exam Extremities: Present: normal, edema Abdomen: Present: normal appearance, soft Incision: Present: normal, dry Uterus: Present: normal, firm Assessment and Plan (1) 36 to 37 weeks gestation of Current Visit: Yes Status: Acute Code(s): AUK6300 - SNOMED Code(s): 541002432 (2) Placenta previa Current Visit: Yes Status: Acute Code(s): O44.00 - COMPLETE PLACENTA PREVIA NOS OR WITHOUT HEMOR, UNSP TRI SNOMED Code(s): 96073269 (3) labor Current Visit: No Status: Acute Priority: High Code(s): O60.00 - LABOR WITHOUT DELIVERY, UNSPECIFIED TRIMESTER SNOMED Code(s): 4877091 (4) S/P section Current Visit: Yes Status: Acute Code(s): Z98.891 - HISTORY OF UTERINE SCAR FROM PREVIOUS SURGERY SNOMED Code(s): 515694649 Plan: Patient is doing well postoperatively. Will continue routine postoperative care. Anticipate discharge home tomorrow.
[2024-07-01 08:37] VITALS: BP 116/57; PULSE 63; RESP 17; TEMP 97.4
--- NOTE | 2024-07-01 09:31 | P.DS ---
Providers Date of admission: 06/27/24 12:08 Expected date of discharge: 07/01/24 Attending physician: Janel Kaufman Primary care physician: Stated None - Discharge Diagnosis(es) (1) 36 to 37 weeks gestation of Current Visit: Yes Status: Acute (2) Placenta previa Current Visit: Yes Status: Acute (3) labor Current Visit: No Status: Acute Priority: High (4) S/P section Current Visit: Yes Status: Acute Hospital Course: This is a 29-year-old 7 now para 4-3-0-7 at 36-4/7 weeks, that presented to labor and delivery on 06/27 after visit with complaints of contractions. Patient was noted to be uncomfortable in the office therefore was sent to labor and delivery for continued monitoring. Patient has a known complete previa with this . Patient denied vaginal bleeding. Estimated due date of July 21 based on 13-week ultrasound as she was unsure of her last menstrual period. Upon monitoring in triage patient was noted to be miladis frequently and becoming more uncomfortable with contractions. Patient was noted to be breathing through contractions, therefore decision was made to proceed with primary with bilateral salpingectomy per patient request. For full detail in this patient please the dictated history and physical. Patient was taken back to the operating room where primary low-transverse section was performed without difficulty. Viable female infant was delivered at 1301, weight of 6 pounds 2 ounces, Apgars of 8 and 9 at 1 and 5 minutes respectively. For full details on the please see the dictated operative report. Patient's postoperative course has been uneventful. In this postoperative day #4 she is ambulating and voiding without difficulty. She is tolerating a regular diet without nausea or vomiting. She states her pain is well- controlled. She denies any concerns and states she is ready for discharge home. Laboratory evaluation admission hemoglobin 11.8, postop day 1 hemoglobin 11.3. Patient Condition at Discharge: Good Plan - Discharge Summary New Discharge Prescriptions: No Action Albuterol Inhaler [Ventolin Hfa Inhaler] 2 puff INHALATION QID #8 gm Vit No.179/Iron/Folic [ Tablet] 1 tab PO DAILY Discharge Medication List Vit No.179/Iron/Folic [ Tablet] 1 tab PO DAILY 08/01/23 [History] Albuterol Inhaler [Ventolin Hfa Inhaler] 2 puff INHALATION QID #8 gm 04/01/24 [Rx] Follow up Appointment(s)/Referral(s): Janel Kaufman DO [Doctor of Osteopathic Medicine] - 07/10/24 3:30 pm (Post appointment 08-08-2024 at 1:00pm) Patient Instructions/Handouts: (DC), (GEN) Activity/Diet/Wound Care/Special Instructions: [id number] ibuprofen 600 mg 3 tablets every 6 hours as needed for pain. Patient is to call the office and make a routine visit for 2 weeks. Should she have any concerns prior to this appointment she is urged to call the office. Discharge Disposition: HOME SELF-CARE
== END 2024-07-01 12:30 | disposition home or self-care (01) | DRG 783 ==
LOC: FBPOP 10:44 → 4FBP 12:08
PROVIDERS: ADMIT Obstetrics & Gynecology Obstetrics; ATTEND Obstetrics & Gynecology Obstetrics
PROC: 0UB70ZZ Excision of Bilateral Fallopian Tubes, Open Approach (ICD-10-PCS; 2024-06-27)
PROC: 10D00Z1 Extraction of Products of Conception, Low, Open Approach (ICD-10-PCS; principal; 2024-06-27 12:20)
DX: O44.03 Complete placenta previa NOS or without hemorrhage, third trimester (principal); O60.14X0 Preterm labor third trimester with preterm delivery third trimester, not applicable or unspecified; O99.73 Diseases of the skin and subcutaneous tissue complicating the puerperium; L29.9 Pruritus, unspecified; Z3A.37 37 weeks gestation of pregnancy; Z37.0 Single live birth; Z30.2 Encounter for sterilization
CPT/HCPCS: 59025; 81001; 85025; 86850; 86900; 86901; 96360; 96375; 99214

== ENCOUNTER 2024-07-26 08:50 | Emergency (ER) | payer BC, OTHER ==
[2024-07-26 08:58] VITALS: RESP 18
--- NOTE | 2024-07-26 09:13 | ED ---
General Adult HPI - General Chief complaint: Recheck/Abnormal Lab/Rx Stated complaint: Difficulty breathing Time Seen by Provider: 07/26/24 08:52 Source: patient, RN notes reviewed Mode of arrival: ambulatory Limitations: no limitations - History of Present Illness Initial comments: Patient is a 29 year old female with a past medical history of asthma presenting with shortness of breath, chest pain x 1 day. She states that 2 of her children have been sick with the flu for 2 days, and last night she started to "feel like I couldn't breathe". She states she is having constant chest pain and upper back pain that is worse with inspiration, and a headache. She states positioning does not increase or decrease her chest pain. She endorses a decreased appetite and says her "mouth is dry no matter how much water I drink". She also notes 1 episode of vomiting yesterday 07/25/24. She also notes that she is 1 month post- op from a with no complications, but has been on bed rest. She denies any extremity swelling, pain or redness, incisional site drainage, redness, or pain. - Related Data Home Medications Medication Instructions Recorded Confirmed Vit No.179/Iron/Folic 1 tab PO DAILY 02/09/23 06/11/24 [ Tablet] Previous Rx's Medication Instructions Recorded Albuterol Inhaler [Ventolin Hfa 2 puff INHALATION QID #8 gm 04/01/24 Inhaler] Albuterol Inhaler [Ventolin Hfa 1 - 2 puff INHALATION Q6H PRN #1 07/26/24 Inhaler] each Allergies Allergy/AdvReac Type Severity Reaction Status Date / Time No Known Allergies Allergy Verified 07/26/24 08:58 Review of Systems ROS Statement: Those systems with pertinent positive or pertinent negative responses have been documented in the HPI. ROS Other: All systems not noted in ROS Statement are negative. Past Medical History Past Medical History: Asthma Additional Past Medical History / Comment(s): ADHD, Past obstetrical history: 6 vaginal births History of Any Multi-Drug Resistant Organisms: None Reported Past Surgical History: Orthopedic Surgery, Tonsillectomy Additional Past Surgical History / Comment(s): right knee surgery, EGD Past Anesthesia/Blood Transfusion Reactions: No Reported Reaction Past Psychological History: ADD/ADHD, Anxiety, Depression Smoking Status: Former smoker Past Alcohol Use History: None Reported Past Drug Use History: Marijuana - Past Family History Mother Family Medical History: No Reported History General Exam Limitations: no limitations General appearance: alert, anxious, in distress Head exam: Present: atraumatic, normocephalic, normal inspection ENT exam: Present: mucous membranes dry Neck exam: Present: normal inspection. Absent: tenderness, meningismus, lymphadenopathy Respiratory exam: Present: wheezes, rhonchi, accessory muscle use Cardiovascular Exam: Present: normal rhythm, tachycardia, normal heart sounds GI/Abdominal exam: Present: soft, normal bowel sounds. Absent: distended, tenderness, guarding, rebound, rigid Extremities exam: Present: normal inspection, full ROM, normal capillary refill. Absent: tenderness, pedal edema, joint swelling, calf tenderness Back exam: Present: normal inspection, tenderness (upper middle) Neurological exam: Present: alert, oriented X3, CN II-XII intact Skin exam: Present: dry, pallor Course Vital Signs 07/26/24 07/26/24 08:54 11:15 Temperature 98.8 F 97.7 F Pulse Rate 118 H 100 Respiratory 18 18 Rate Blood Pressure 101/70 102/72 O2 Sat by Pulse 92 L 97 Oximetry EKG Findings - EKG Comments: EKG Findings:: EKG performed at 9: 07 sinus tachycardia rate of 113 [place] 127 QRS 82 QT/QTc 283/350 - EKG Results: EKG: interpreted by ANITA Medical Decision Making - Medical Decision Making Was pt. sent in by a medical professional or institution (, PA, EXAMINER OF CURRENCY, urgent care, hospital, or [facility]...) When possible be specific @ -No Did you speak to anyone other than the patient for history (EMS, parent, family, police, friend...)? What history was obtained from this source @ -No Did you review nursing and triage notes (agree or disagree)? Why? @ -I reviewed and agree with nursing and triage notes Were old charts reviewed (outside hosp., previous admission, EMS record, old EKG, old radiological studies, urgent care reports/EKG's, [facility] records)? Report findings @ -No old charts were reviewed Differential Diagnosis (chest pain, altered mental status, abdominal pain women, abdominal pain men, vaginal bleeding, weakness, fever, dyspnea, syncope, headache, dizziness, GI bleed, back pain, seizure, CVA, palpatations, mental health, musculoskeletal)? @ -Differential Dyspnea: Coronary syndrome, arrhythmia, tamponade, asthma, COPD, pulmonary embolism, pneumonia, pneumothorax, pulmonary effusion, anaphylaxis, diabetic ketoacidosis, flailed chest, pulmonary contusion, diaphragmatic rupture, anemia, neuromuscular, this is not meant to be an all-inclusive list. EKG interpreted by me (3pts min.). @ -As above X-rays interpreted by me (1pt min.). @ -Chest x-ray shows no acute cardiopulmonary process CT interpreted by me (1pt min.). @ -CT angio for chest rule out PE negative for PE, consider bronchitis U/S interpreted by me (1pt. min.). @ -None done What testing was considered but not performed or refused? (CT, X-rays, U/S, labs)? Why? @ -None What meds were considered but not given or refused? Why? @ -None Did you discuss the management of the patient with other professionals (professionals i.e. , PA, EXAMINER OF CURRENCY, lab, RT, psych nurse, social services counselor, pneumatic jack operator, teacher, department of natural resources officer, medical case manager)? Give summary @ -No Was smoking cessation discussed for >3mins.? @ -No Was critical care preformed (if so, how long)? @ -No Were there social determinants of health that impacted care today? How? (Homelessness, low income, unemployed, alcoholism, drug addiction, transportation, low edu. Level, literacy, decrease access to med. care, [facility], rehab)? @ -No Was there de-escalation of care discussed even if they declined (Discuss DNR or withdrawal of care, Hospice)? DNR status @ -No What co-morbidities impacted this encounter? (DM, HTN, Smoking, COPD, CAD, Cancer, CVA, ARF, Chemo, Hep., AIDS, mental health diagnosis, sleep apnea, morbid obesity)? @ -Asthma Was patient admitted / discharged? Hospital course, mention meds given and route, prescriptions, significant lab abnormalities, going to OR and other pertinent info. @ -Discharged patient presented for cough congestion and upper respiratory symptoms with recent transition concerning for possible PE negative for PE patient has influenza A positive will be discharged in stable condition no current hypoxia. Undiagnosed new problem with uncertain prognosis? @ -No Drug Therapy requiring intensive monitoring for toxicity (Heparin, Nitro, Insulin, Cardizem)? @ -No Were any procedures done? @ -No Diagnosis/symptom? @ -Influenza A Acute, or Chronic, or Acute on Chronic? @ -Acute Uncomplicated (without systemic symptoms) or Complicated (systemic symptoms)? @ -uncomplicated Side effects of treatment? @ -No Exacerbation, Progression, or Severe Exacerbation? @ -No Poses a threat to life or bodily function? How? (Chest pain, [place], [place], pneumonia, PE, COPD, DKA, ARF, appy, cholecystitis, CVA, Diverticulitis, Homicidal, Suicidal, threat to staff... and all critical care pts) @ -No - Lab Data Result diagrams: 07/26/24 09:28 07/26/24 09:28 Lab Results 07/26/24 07/26/24 07/26/24 Range/Units 09:18 09:28 09:28 WBC 6.8 (3.8-10.6) k/uL RBC 4.78 (3.80-5.40) m/uL Hgb 13.9 (11.4-16.0) gm/dL Hct 43.4 (34.0-46.0) % MCV 91.0 (80.0-100.0) fL MCH 29.2 (25.0-35.0) pg MCHC 32.1 (31.0-37.0) g/dL RDW 12.0 (11.5-15.5) % Plt Count 182 (150-450) k/uL MPV 7.8 Neutrophils % 76 % Lymphocytes % 12 % Monocytes % 9 % Eosinophils % 0 % Basophils % 1 % Neutrophils # 5.1 (1.3-7.7) k/uL Lymphocytes # 0.8 L (1.0-4.8) k/uL Monocytes # 0.6 (0-1.0) k/uL Eosinophils # 0.0 (0-0.7) k/uL Basophils # 0.0 (0-0.2) k/uL D-Dimer 0.86 H (<0.60) mg/L FEU Sodium (137-145) mmol/L Potassium (3.5-5.1) mmol/L Chloride (98-107) mmol/L Carbon Dioxide (22-30) mmol/L Anion Gap mmol/L BUN (7-17) mg/dL Creatinine (0.52-1.04) mg/dL Est GFR (CKD-EPI)AfAm (>60 ml/min/1.73 sqM) Est GFR (CKD-EPI)NonAf (>60 ml/min/1.73 sqM) Glucose (74-99) mg/dL Calcium (8.4-10.2) mg/dL Total Bilirubin (0.2-1.3) mg/dL AST (14-36) U/L ALT (4-34) U/L Alkaline Phosphatase (38-126) U/L Total Protein (6.3-8.2) g/dL Albumin (3.5-5.0) g/dL Influenza Type A (PCR) Detected A (Not Detectd) Influenza Type B (PCR) Not Detected (Not Detectd) RSV (PCR) Not Detected (Not Detectd) SARS-CoV-2 (PCR) Not Detected (Not Detectd) 07/26/24 Range/Units 09:28 WBC (3.8-10.6) k/uL RBC (3.80-5.40) m/uL Hgb (11.4-16.0) gm/dL Hct (34.0-46.0) % MCV (80.0-100.0) fL MCH (25.0-35.0) pg MCHC (31.0-37.0) g/dL RDW (11.5-15.5) % Plt Count (150-450) k/uL MPV Neutrophils % % Lymphocytes % % Monocytes % % Eosinophils % % Basophils % % Neutrophils # (1.3-7.7) k/uL Lymphocytes # (1.0-4.8) k/uL Monocytes # (0-1.0) k/uL Eosinophils # (0-0.7) k/uL Basophils # (0-0.2) k/uL D-Dimer (<0.60) mg/L FEU Sodium 140 (137-145) mmol/L Potassium 4.6 (3.5-5.1) mmol/L Chloride 109 H (98-107) mmol/L Carbon Dioxide 12 L (22-30) mmol/L Anion Gap 19 mmol/L BUN 15 (7-17) mg/dL Creatinine 0.79 (0.52-1.04) mg/dL Est GFR (CKD-EPI)AfAm >90 (>60 ml/min/1.73 sqM) Est GFR (CKD-EPI)NonAf >90 (>60 ml/min/1.73 sqM) Glucose 66 L (74-99) mg/dL Calcium 8.8 (8.4-10.2) mg/dL Total Bilirubin 1.4 H (0.2-1.3) mg/dL AST 32 (14-36) U/L ALT 16 (4-34) U/L Alkaline Phosphatase 61 (38-126) U/L Total Protein 6.8 (6.3-8.2) g/dL Albumin 4.2 (3.5-5.0) g/dL Influenza Type A (PCR) (Not Detectd) Influenza Type B (PCR) (Not Detectd) RSV (PCR) (Not Detectd) SARS-CoV-2 (PCR) (Not Detectd) Disposition Clinical Impression: Influenza A Disposition: HOME SELF-CARE Condition: Stable Instructions (If sedation given, give patient instructions): Influenza (ED) Additional Instructions: Please return to the Emergency Department if symptoms worsen or any other concerns. Prescriptions: Albuterol Inhaler [Ventolin Hfa Inhaler] 1 - 2 puff INHALATION Q6H PRN #1 each PRN Reason: Shortness Of Breath Is patient prescribed a controlled substance at d/c from ED?: No Referrals: None,Stated [Primary Care Provider] - 1-2 days Time of Disposition: 11:51
[2024-07-26] MEDS: SODIUM CHLORIDE 0.9% 1,000 ML IV STA (09:19)
[2024-07-26] MEDS: ACETAMINOPHEN TAB 500 MG TAB PO STA (09:29)
--- NOTE | 2024-07-26 09:43 | XR ---
EXAMINATION TYPE: XR chest 2V DATE OF EXAM: 07/26/2024 9:38 AM COMPARISON: Chest radiographs from 03/28/2024 CLINICAL INDICATION: Female, 29 years old with history of SOB; [facility] TECHNIQUE: XR chest 2V Frontal and lateral views of the chest. FINDINGS: Lungs/Pleura: There is no evidence of pleural effusion, focal consolidation, or pneumothorax. Pulmonary vascularity: Unremarkable. Heart/mediastinum: Cardiomediastinal silhouette is unremarkable. Musculoskeletal: No acute osseous pathology. IMPRESSION: No acute cardiopulmonary disease/process. [facility], , 07/26/2024 9:41 AM
[2024-07-26 09:53] LABS: Basophils % (A) 1 %; Eosinophils % (A) 0 %; HCT 43.4 % (34.0-46.0); HGB 13.9 gm/dL (11.4-16.0); Lymphocytes # (A) 0.8 k/uL (1.0-4.8); Lymphocytes % (A) 12 %; MCH 29.2 pg (25.0-35.0); MCHC 32.1 g/dL (31.0-37.0); Mean Platelet Volume 7.8; Monocytes # (A) 0.6 k/uL (0-1.0); Monocytes % (A) 9 %; Neutrophils # (A) 5.1 k/uL (1.3-7.7); Neutrophils % (A) 76 %; Platelet Count 182 k/uL (150-450); RBC 4.78 m/uL (3.80-5.40); WBC 6.8 k/uL (3.8-10.6)
[2024-07-26 10:00] LABS: Influenza A Detected (Not Detectd); Influenza B Not Detected (Not Detectd); RSV Not Detected (Not Detectd)
[2024-07-26 10:23] LABS: ALT 16 U/L (4-34); AST 32 U/L (14-36); African American GFR (CKD) >90 (>60 ml/min/1.73 sqM); Albumin 4.2 g/dL (3.5-5.0); Alkaline Phosphatase 61 U/L (38-126); Anion Gap 19 mmol/L; Blood Urea Nitrogen 15 mg/dL (7-17); Calcium 8.8 mg/dL (8.4-10.2); Carbon Dioxide 12 mmol/L (22-30); Chloride 109 mmol/L (98-107); Glucose 66 mg/dL (74-99); Non-African American GFR(CKD) >90 (>60 ml/min/1.73 sqM); Potassium 4.6 mmol/L (3.5-5.1); Sodium 140 mmol/L (137-145); Total Bilirubin 1.4 mg/dL (0.2-1.3); Total Protein 6.8 g/dL (6.3-8.2)
[2024-07-26 11:18] VITALS: BP 102/72; PULSE 100; TEMP 97.7
[2024-07-26] MEDS: SODIUM CHLORIDE 0.9% 1,000 ML IV ONE (11:18)
--- NOTE | 2024-07-26 11:39 | CT ---
EXAMINATION TYPE: CT chest angio for PE DATE OF EXAM: 07/26/2024 11:21 AM COMPARISON: r CLINICAL INDICATION: Female, 29 years old with history of chest pain, SOB, obi/influenza A TECHNIQUE: CT of the chest is performed on a spiral scan at 2 mm thick sections. Study is performed with intravenous contrast timed for evaluation for pulmonary embolism. This will limit additional po rtions of the evaluation. 3-D MIP images reconstructed by the technologist are reviewed on the compu ter in the coronal and sagittal planes. Contrast used:100ml mL of Isovue 370 with IV Contrast, (none if empty) Oral contrast used: (none if empty) CT DLP: 215 mGycm, Automated exposure control for dose reduction was used. FINDINGS: No persistent filling defects are evident to suggest an acute pulmonary embolism. Small amount reflux into the inferior vena cava is evident. No mediastinal or hilar adenopathy enlarged by CT criteria is evident. There is some hilar and subca rinal lymphadenopathy which is not enlarged. The ascending aorta diameter at the level of the main pulmonary artery is 2.3 cm. The main pulmonary artery diameter at the bifurcation is 2.3 cm. Lung windows are clear. Mild peribronchial thickening is present consider acute bronchitis. Limited CT sections were through the upper abdomen. Upper abdomen appears unremarkable. IMPRESSION: 1. No acute pulmonary embolism. 2. Consider acute bronchitis. [facility], , 07/26/2024 11:37 AM
== END 2024-07-26 12:20 | disposition home or self-care (01) ==
LOC: EC 08:50
DX: J10.1 Influenza due to other identified influenza virus with other respiratory manifestations (principal); R00.0 Tachycardia, unspecified; Z87.891 Personal history of nicotine dependence
CPT/HCPCS: 36415; 93005; 85379; 80053; 85025; 87636; 71046; 71275; 99285; 96360; 96361 ×2; Q9967

== ENCOUNTER 2024-09-21 12:19 | Emergency (ER) | payer BC, OTHER ==
[2024-09-21 12:37] VITALS: TEMP 97.6
--- NOTE | 2024-09-21 12:52 | ED ---
General Adult HPI - General Chief complaint: Back Pain/Injury Stated complaint: back pain Time Seen by Provider: 09/21/24 12:39 Source: patient, RN notes reviewed Mode of arrival: ambulatory Limitations: no limitations - History of Present Illness Initial comments: Patient is a 29-year-old female presenting to the emergency department with concerns with right lower back discomfort. Onset of symptoms was 3 days ago. Symptoms did start somewhat suddenly and are definitely worse today. Discomfort greatly increases with movement. No history of previous plaque problems or similar symptoms previously. No urinary symptoms. No fever. No mid back pain. No fever. - Related Data Home Medications Medication Instructions Recorded Confirmed Vit No.179/Iron/Folic 1 tab PO DAILY 02/09/23 06/11/24 [ Tablet] Previous Rx's Medication Instructions Recorded Albuterol Inhaler [Ventolin Hfa 2 puff INHALATION QID #8 gm 04/01/24 Inhaler] Albuterol Inhaler [Ventolin Hfa 1 - 2 puff INHALATION Q6H PRN #1 07/26/24 Inhaler] each Allergies Allergy/AdvReac Type Severity Reaction Status Date / Time No Known Allergies Allergy Verified 09/21/24 12:37 Review of Systems ROS Statement: Those systems with pertinent positive or pertinent negative responses have been documented in the HPI. ROS Other: All systems not noted in ROS Statement are negative. Constitutional: Denies: fever, chills Eyes: Denies: eye pain ENT: Denies: ear pain Respiratory: Denies: cough, dyspnea Cardiovascular: Denies: chest pain Gastrointestinal: Denies: abdominal pain, nausea, vomiting Genitourinary: Denies: urgency, dysuria Musculoskeletal: Reports: as per HPI, back pain Past Medical History Past Medical History: Asthma Additional Past Medical History / Comment(s): ADHD, Past obstetrical history: 6 vaginal births. Bilateral salpingectomy History of Any Multi-Drug Resistant Organisms: None Reported Past Surgical History: Orthopedic Surgery, Tonsillectomy Additional Past Surgical History / Comment(s): right knee surgery, EGD Past Anesthesia/Blood Transfusion Reactions: No Reported Reaction Past Psychological History: ADD/ADHD, Anxiety, Depression Smoking Status: Former smoker Past Alcohol Use History: None Reported Past Drug Use History: Marijuana - Past Family History Mother Family Medical History: No Reported History General Exam Limitations: no limitations General appearance: alert Head exam: Present: normocephalic Eye exam: Present: normal appearance Respiratory exam: Present: normal lung sounds bilaterally Cardiovascular Exam: Present: regular rate, normal rhythm Expanded Peripheral pulses: 2+: Posterior Tibialis (R), Posterior Tibialis (L) GI/Abdominal exam: Present: soft, tenderness (Mild nonspecific tenderness) Extremities exam: Present: normal inspection Back exam: Present: tenderness (Right lower lateral lumbar region.). Absent: CVA tenderness (R), vertebral tenderness Neurological exam: Present: alert Psychiatric exam: Present: normal affect, normal mood Skin exam: Present: normal color Course Vital Signs 09/21/24 12:34 Temperature 97.6 F Pulse Rate 91 Respiratory 18 Rate Blood Pressure 91/62 O2 Sat by Pulse 98 Oximetry Medical Decision Making - Medical Decision Making Was pt. sent in by a medical professional or institution (, PA, BEAVER TRAPPER, urgent care, hospital, or custodial...) When possible be specific @ -No Did you speak to anyone other than the patient for history (EMS, parent, family, police, friend...)? What history was obtained from this source @ -No Did you review nursing and triage notes (agree or disagree)? Why? @ -I reviewed and agree with nursing and triage notes Were old charts reviewed (outside hosp., previous admission, EMS record, old EKG, old radiological studies, urgent care reports/EKG's, custodial records)? Report findings @ -No old charts were reviewed Differential Diagnosis (chest pain, altered mental status, abdominal pain women, abdominal pain men, vaginal bleeding, weakness, fever, dyspnea, syncope, headache, dizziness, GI bleed, back pain, seizure, CVA, palpatations, mental health, musculoskeletal)? @ -Differential Back Pain: Strain, zoster, cauda equina syndrome, epidural abscess, vertebral osteomyelitis, discitis, fracture, subluxation, disc herniation, DJD, spinal stenosis, dissection, AAA, pancreatitis, peptic ulcer disease, pyelonephritis, kidney stone, this is not meant to be an all-inclusive list. EKG interpreted by me (3pts min.). @ -As above X-rays interpreted by me (1pt min.). @ -None done CT interpreted by me (1pt min.). @ -CT scan abdomen pelvis shows no acute process U/S interpreted by me (1pt. min.). @ -None done What testing was considered but not performed or refused? (CT, X-rays, U/S, labs)? Why? @ -Urinalysis ordered however patient has not provided yet. Patient refuses to wait for this and would like to be discharged after further pain medication What meds were considered but not given or refused? Why? @ -None Did you discuss the management of the patient with other professionals (professionals i.e. DrSamantha, PA, BEAVER TRAPPER, lab, RT, psych nurse, health and social care teacher, immigration officer, teacher, jailer/training officer, corrections caseworker)? Give summary @ -No Was smoking cessation discussed for >3mins.? @ -No Was critical care preformed (if so, how long)? @ -No Were there social determinants of health that impacted care today? How? (Homelessness, low income, unemployed, alcoholism, drug addiction, transportation, low edu. Level, literacy, decrease access to med. care, care home, rehab)? @ -No Was there de-escalation of care discussed even if they declined (Discuss DNR or withdrawal of care, Hospice)? DNR status @ -No What co-morbidities impacted this encounter? (DM, HTN, Smoking, COPD, CAD, Cancer, CVA, ARF, Chemo, Hep., AIDS, mental health diagnosis, sleep apnea, morbid obesity)? @ -None Was patient admitted / discharged? Hospital course, mention meds given and route, prescriptions, significant lab abnormalities, going to OR and other pertinent info. @ -Patient presents with back pain that is positional. Evaluation unremarkable. Patient does not want urinalysis done and would like to go with further pain medication. Patient had mild improvement with Toradol. Patient advised not to drive as well as advised to pump breastmilk for 24 hours. Undiagnosed new problem with uncertain prognosis? @ -No Drug Therapy requiring intensive monitoring for toxicity (Heparin, Nitro, Insulin, Cardizem)? @ -No Were any procedures done? @ -No Diagnosis/symptom? @ -Low back pain Acute, or Chronic, or Acute on Chronic? @ -Acute Uncomplicated (without systemic symptoms) or Complicated (systemic symptoms)? @ -Default Side effects of treatment? @ -No Exacerbation, Progression, or Severe Exacerbation? @ -No Poses a threat to life or bodily function? How? (Chest pain, [place], [place], pneumonia, PE, COPD, DKA, ARF, appy, cholecystitis, CVA, Diverticulitis, Homicidal, Suicidal, threat to staff... and all critical care pts) @ -No - Lab Data Result diagrams: 09/21/24 13:08 09/21/24 13:08 Lab Results 09/21/24 09/21/24 Range/Units 13:08 13:08 WBC 9.5 (3.8-10.6) k/uL RBC 4.61 (3.80-5.40) m/uL Hgb 13.2 (11.4-16.0) gm/dL Hct 41.9 (34.0-46.0) % MCV 90.9 (80.0-100.0) fL MCH 28.7 (25.0-35.0) pg MCHC 31.6 (31.0-37.0) g/dL RDW 13.3 (11.5-15.5) % Plt Count 270 (150-450) k/uL MPV 7.6 Neutrophils % 51 % Lymphocytes % 38 % Monocytes % 5 % Eosinophils % 3 % Basophils % 1 % Neutrophils # 4.8 (1.3-7.7) k/uL Lymphocytes # 3.6 (1.0-4.8) k/uL Monocytes # 0.4 (0-1.0) k/uL Eosinophils # 0.3 (0-0.7) k/uL Basophils # 0.1 (0-0.2) k/uL Sodium 138 (137-145) mmol/L Potassium 4.1 (3.5-5.1) mmol/L Chloride 105 (98-107) mmol/L Carbon Dioxide 21 L (22-30) mmol/L Anion Gap 12 mmol/L BUN 14 (7-17) mg/dL Creatinine 0.73 (0.52-1.04) mg/dL Est GFR (CKD-EPI)AfAm >90 (>60 ml/min/1.73 sqM) Est GFR (CKD-EPI)NonAf >90 (>60 ml/min/1.73 sqM) Glucose 103 H (74-99) mg/dL Calcium 9.3 (8.4-10.2) mg/dL Total Bilirubin 1.2 (0.2-1.3) mg/dL AST 15 (14-36) U/L ALT 12 (4-34) U/L Alkaline Phosphatase 55 (38-126) U/L Total Protein 7.2 (6.3-8.2) g/dL Albumin 4.7 (3.5-5.0) g/dL Amylase 33 (30-110) U/L Lipase 41 (23-300) U/L Disposition Clinical Impression: Low back pain Disposition: HOME SELF-CARE Condition: Stable Instructions (If sedation given, give patient instructions): Acute Low Back Pain (ED) Additional Instructions: Please follow-up with your primary care physician in the next 1 to 2 days for recheck. Please dump all breastmilk for 24 hours. Return for fever, weakness, loss of control of bowel or bladder, worsening or changing symptoms or any other concerns. No driving today. Is patient prescribed a controlled substance at d/c from ED?: No Referrals: None,Stated [Primary Care Provider] - 1-2 days Chad Leonard MD [STAFF PHYSICIAN] - 1-2 days Forms: Area PCPs Time of Disposition: 14:13
[2024-09-21] MEDS: KETOROLAC 15 MG/ML 1 ML VIAL IVP STA (13:20)
[2024-09-21 13:34] LABS: Basophils # (A) 0.1 k/uL (0-0.2); Basophils % (A) 1 %; Eosinophils # (A) 0.3 k/uL (0-0.7); Eosinophils % (A) 3 %; HCT 41.9 % (34.0-46.0); HGB 13.2 gm/dL (11.4-16.0); Lymphocytes # (A) 3.6 k/uL (1.0-4.8); Lymphocytes % (A) 38 %; MCH 28.7 pg (25.0-35.0); MCHC 31.6 g/dL (31.0-37.0); MCV 90.9 fL (80.0-100.0); Mean Platelet Volume 7.6; Monocytes # (A) 0.4 k/uL (0-1.0); Monocytes % (A) 5 %; Neutrophils # (A) 4.8 k/uL (1.3-7.7); Neutrophils % (A) 51 %; Platelet Count 270 k/uL (150-450); RBC 4.61 m/uL (3.80-5.40); RDW 13.3 % (11.5-15.5); WBC 9.5 k/uL (3.8-10.6)
[2024-09-21 13:52] LABS: ALT 12 U/L (4-34); AST 15 U/L (14-36); African American GFR (CKD) >90 (>60 ml/min/1.73 sqM); Albumin 4.7 g/dL (3.5-5.0); Alkaline Phosphatase 55 U/L (38-126); Amylase 33 U/L (30-110); Anion Gap 12 mmol/L; Blood Urea Nitrogen 14 mg/dL (7-17); Calcium 9.3 mg/dL (8.4-10.2); Carbon Dioxide 21 mmol/L (22-30); Chloride 105 mmol/L (98-107); Glucose 103 mg/dL (74-99); Lipase 41 U/L (23-300); Non-African American GFR(CKD) >90 (>60 ml/min/1.73 sqM); Potassium 4.1 mmol/L (3.5-5.1); Sodium 138 mmol/L (137-145); Total Bilirubin 1.2 mg/dL (0.2-1.3); Total Protein 7.2 g/dL (6.3-8.2)
--- NOTE | 2024-09-21 13:53 | CT ---
EXAMINATION TYPE: CT abdomen pelvis wo con DATE OF EXAM: 09/21/2024 COMPARISON: 04/04/2022 CLINICAL INDICATION: Female, 29 years old with history of R flank pain; PHH, Right side flank pain TECHNIQUE: CT scan of the abdomen and pelvis is performed without oral or IV contrast. CT DLP: 391.[address] CTDI: mGy Automated exposure control for dose reduction was used. FINDINGS: Within the limitations of a non-contrast study, the following observations are made. The lungs are clear. Gallbladder is normal and there is no gallstone, wall thickening, pericholecystic fluid or distention . There is no biliary ductal dilatation. There is no organomegaly of the liver, pancreas, spleen or adrenal glands. There are no renal calcifications or hydronephrosis. The caliber of the abdominal aorta is normal and there is no retroperitoneal adenopathy or hemorrhage . The bowel loops are normal in caliber is no evidence of obstruction. No inflammatory changes are iden tified in the mesentery and there is no free intraperitoneal air or fluid. There is no pelvic mass, free fluid, abscess or adenopathy. There is mild diverticulosis of the colon without CT evidence of diverticulitis. The osseous structures and soft tissues are unremarkable. IMPRESSION: No significant abnormality seen. [facility], , 09/21/2024 1:51 PM
[2024-09-21] MEDS: HYDROmorphone 1 MG/ML 1 ML SYRINGE IVP STA (14:17)
[2024-09-21 14:20] VITALS: BP 105/69; PULSE 66; RESP 16
== END 2024-09-21 14:27 | disposition home or self-care (01) ==
LOC: EC 12:19
DX: M54.50 Low back pain, unspecified (principal); Z87.891 Personal history of nicotine dependence
CPT/HCPCS: 36415; 80053; 82150; 83690; 85025; 74176; 99284; 96374; 96375; J1171; J1885

== ENCOUNTER 2024-11-14 18:47 | Emergency (ER) | payer BC, OTHER ==
[2024-11-14] MEDS: DEXAMETHASONE SOD PHOSPHATE 10 MG/ML 1 ML VIAL IVP STA (19:32)
[2024-11-14] MEDS: SODIUM CHLORIDE 0.9% 1,000 ML IV STA (19:33)
[2024-11-14] MEDS: PROCHLORPERAZINE INJ 10 MG/2 ML VIAL IVP STA (19:33)
[2024-11-14] MEDS: KETOROLAC 15 MG/ML 1 ML VIAL IVP STA ×2 (19:33→21:24)
[2024-11-14] MEDS: diphenhydrAMINE 50 MG/ML 1 ML VIAL IVP STA (19:33)
[2024-11-14 19:45] LABS: Basophils # (A) 0.09 10*3/uL (0.00-0.10); Basophils % (A) 1.4 %; Eosinophils # (A) 0.65 10*3/uL (0.04-0.35); Eosinophils % (A) 10.4 %; HCT 37.8 % (37.2-46.3); HGB 12.8 g/dL (12.0-15.0); Lymphocytes % (A) 43.2 %; MCH 29.7 pg (27.0-32.0); MCHC 33.9 g/dL (32.0-37.0); MCV 87.7 fL (80.0-97.0); Mean Platelet Volume 10.1 fL (9.5-12.2); Monocytes # (A) 0.43 10*3/uL (0.20-1.00); Monocytes % (A) 6.9 %; Neutrophils # (A) 2.37 10*3/uL (1.80-7.70); Neutrophils % (A) 37.9 %; Platelet Count 233 10*3/uL (140-440); RBC 4.31 10*6/uL (4.10-5.20); RDW 12.2 % (11.5-14.5); WBC 6.25 10*3/uL (4.50-10.00)
--- NOTE | 2024-11-14 19:53 | ED ---
Headache HPI - General Chief Complaint: Headache Stated Complaint: Headache Time Seen by Provider: 11/14/24 19:06 Source: patient, RN notes reviewed Mode of arrival: ambulatory Limitations: no limitations - History of Present Illness Initial Comments: This is a 29-year-old female who presents to the emergency department for a headache. States that it started 5 days ago. She did fall and hit the back of her head before this started, but is unsure if it is related. She was not evaluated afterwards. There was no loss of consciousness. She has associated nausea and fatigue with the headache. Denies any visual changes or light/sound sensitivity. She has a history of migraines, but states that she has not had one in about 5 years. Also reports some discoloration and an odor to her urine and wonders if she may have a UTI. MD Complaint: headache - Related Data Home Medications Medication Instructions Recorded Confirmed Vit No.179/Iron/Folic 1 tab PO DAILY 02/09/23 06/11/24 [ Tablet] Previous Rx's Medication Instructions Recorded Albuterol Inhaler [Ventolin Hfa 2 puff INHALATION QID #8 gm 04/01/24 Inhaler] Albuterol Inhaler [Ventolin Hfa 1 - 2 puff INHALATION Q6H PRN #1 07/26/24 Inhaler] each Ketorolac [Toradol] 10 mg PO Q6HR PRN #15 tab 11/14/24 Nitrofurantoin Monohyd/M-Cryst 100 mg PO Q12HR 5 Days #10 cap 11/14/24 [Macrobid] Ondansetron Odt [Zofran Odt] 4 mg PO Q8HR PRN #20 tab 11/14/24 SUMAtriptan succinate 100 mg PO DIRECTED PRN #10 tab 11/14/24 Allergies Allergy/AdvReac Type Severity Reaction Status Date / Time No Known Allergies Allergy Verified 11/14/24 18:57 Review of Systems ROS Statement: Those systems with pertinent positive or pertinent negative responses have been documented in the HPI. ROS Other: All systems not noted in ROS Statement are negative. Past Medical History Past Medical History: Asthma Additional Past Medical History / Comment(s): ADHD, Past obstetrical history: 6 vaginal births. Bilateral salpingectomy History of Any Multi-Drug Resistant Organisms: None Reported Past Surgical History: Orthopedic Surgery, Tonsillectomy Additional Past Surgical History / Comment(s): right knee surgery, EGD Past Anesthesia/Blood Transfusion Reactions: No Reported Reaction Past Psychological History: ADD/ADHD, Anxiety, Depression Smoking Status: Former smoker Past Alcohol Use History: None Reported Past Drug Use History: Marijuana - Past Family History Mother Family Medical History: No Reported History General Exam Limitations: no limitations General appearance: alert, in no apparent distress Head exam: Present: atraumatic, normocephalic, normal inspection Respiratory exam: Present: normal lung sounds bilaterally. Absent: respiratory distress, wheezes, rales, rhonchi, stridor Cardiovascular Exam: Present: regular rate, normal rhythm GI/Abdominal exam: Present: soft, normal bowel sounds. Absent: distended, tenderness, guarding, rebound, rigid Neurological exam: Present: alert, oriented X3, CN II-XII intact Psychiatric exam: Present: normal affect, normal mood Skin exam: Present: warm, dry, intact, normal color. Absent: rash Course Vital Signs 11/14/24 11/14/24 18:55 21:26 Temperature 97.6 F 97.9 F Pulse Rate 64 56 L Respiratory 18 19 Rate Blood Pressure 102/70 117/66 O2 Sat by Pulse 98 97 Oximetry Medical Decision Making - Medical Decision Making This is a 29-year-old female who presents to the emergency department for a headache. Was pt. sent in by a medical professional or institution? @ -No Did you speak to anyone other than the patient for history? @ -No Did you review nursing and triage notes? @ -Yes, and I agree, it is accurate with regards to the patient's symptoms. Were old charts reviewed? @ -No Differential Diagnosis? @ -Differential Headache: Migraine, tension, cluster, carbon monoxide, central venous thrombosis, pension karma temporal arteritis, acute closure glaucoma, intercranial hemorrhage, mastoiditis, sinusitis, head injury, this is not meant to be an all-inclusive list. EKG interpreted by me (3pts min.)? @ -Not obtained X-rays interpreted by me (1pt min.)? @ -Not obtained CT interpreted by me (1pt min.)? @ -Computed tomography scan of the brain and c-spine obtained. My interpretation identifies no evidence of an acute intracranial hemorrhage, skull fracture, or cervical spine fracture. U/S interpreted by me (1pt. min.)? @ -Not obtained What testing was considered but not performed? (CT, X-rays, U/S, labs)? Why? @ -None What meds were considered but not given? Why? @ -None Did you discuss the management of the patient with other professionals? @ -No Did you reconcile home meds? @ -No Was smoking cessation discussed for >3mins.? @ -No Was critical care preformed (if so, how long)? @ -No Were there social determinants of health that impacted care today? How? (Homelessness, low income, unemployed, alcoholism, drug addiction, transportation, low edu. Level, literacy, decrease access to med. care, half-way, rehab)? @ -No Was there de-escalation of care discussed even if they declined? (Discuss DNR or withdrawal of care, Hospice)? @ -No What co-morbidities impacted this encounter? (DM, HTN, Smoking, COPD, CAD, Cancer, CVA, Hep., AIDS, mental health diagnosis, sleep apnea, morbid obesity)? @ -None Was patient admitted / discharged? @ -Discharged. Lab work unremarkable. Urinalysis potentially suggestive of infection and urine was sent for culture. Given the head injury that occurred before developing the symptoms, CT scan of the brain and C-spine obtained. No acute process was identified. She was treated with a migraine cocktail consisting of IV fluids, Toradol, Compazine, Benadryl, and Decadron with sig nificant improvement in symptoms. Given her urinary symptoms with questionable UA, will start patient on antibiotics. Macrobid was prescribed. Initial dose administered in the emergency department. Prescription for Toradol, Zofran, and sumatriptan provided with dosing instructions reviewed for further symptomatic management. Patient discharged home in stable condition. Case discussed with ED attending, Dr. Mcgregor. Return precautions reviewed in depth, the patient is instructed to return to the emergency department with any new, worsening, or concerning symptoms. Patient verbalized understanding. Undiagnosed new problem with uncertain prognosis? @ -None Drug Therapy requiring intensive monitoring for toxicity (Heparin, Nitro, Insulin, Cardizem)? @ -None Were any procedures done? @ -None Diagnosis/symptom? @ -Headache, nausea and vomiting, UTI Acute, or Chronic, or Acute on Chronic? @ -Acute Uncomplicated (without systemic symptoms) or Complicated (systemic symptoms)? @ -Uncomplicated Side effects of treatment? @ -None Exacerbation, Progression, or Severe Exacerbation] @ -Not applicable Poses a threat to life or bodily function? @ -No - Lab Data Result diagrams: 11/14/24 19:30 11/14/24 19:30 Lab Results 11/14/24 11/14/24 11/14/24 Range/Units 19:30 19:30 19:34 WBC 6.25 (4.50-10.00) 10*3/uL RBC 4.31 (4.10-5.20) 10*6/uL Hgb 12.8 (12.0-15.0) g/dL Hct 37.8 (37.2-46.3) % MCV 87.7 (80.0-97.0) fL MCH 29.7 (27.0-32.0) pg MCHC 33.9 (32.0-37.0) g/dL Plt Count 233 (140-440) 10*3/uL MPV 10.1 (9.5-12.2) fL Immature Gran % (Auto) 0.2 % Neutrophils % 37.9 % Lymphocytes % 43.2 % Monocytes % 6.9 % Eosinophils % 10.4 % Basophils % 1.4 % Immature Gran # 0.01 (0.00-0.04) 10*3/uL Neutrophils # 2.37 (1.80-7.70) 10*3/uL Lymphocytes # 2.70 (0.90-5.00) 10*3/uL Monocytes # 0.43 (0.20-1.00) 10*3/uL Eosinophils # 0.65 H (0.04-0.35) 10*3/uL Basophils # 0.09 (0.00-0.10) 10*3/uL Sodium 140 (137-145) mmol/L Potassium 4.3 (3.5-5.1) mmol/L Chloride 106 (98-107) mmol/L Carbon Dioxide 25 (22-30) mmol/L Anion Gap 9 mmol/L BUN 10 (7-17) mg/dL Creatinine 0.71 (0.52-1.04) mg/dL Est GFR (CKD-EPI)AfAm >90 (>60 ml/min/1.73 sqM) Est GFR (CKD-EPI)NonAf >90 (>60 ml/min/1.73 sqM) Glucose 90 (74-99) mg/dL Calcium 9.5 (8.4-10.2) mg/dL Magnesium 2.0 (1.6-2.3) mg/dL Total Bilirubin 1.2 (0.2-1.3) mg/dL AST 16 (14-36) U/L ALT 15 (4-34) U/L Alkaline Phosphatase 54 (38-126) U/L Total Protein 6.6 (6.3-8.2) g/dL Albumin 4.1 (3.5-5.0) g/dL Urine Color Urine Appearance (Clear) Urine pH (5.0-8.0) Ur Specific [place] (1.001-1.035) Urine Protein (Negative) Urine Glucose (UA) (Negative) Urine Ketones (Negative) Urine Blood (Negative) Urine Nitrite (Negative) Urine Bilirubin (Negative) Urine Urobilinogen (<2.0) mg/dL Ur Leukocyte Esterase (Negative) Urine RBC (0-5) /hpf Urine WBC (0-5) /hpf Ur Squamous Epith Cells (0-4) /hpf Urine Bacteria (None) /hpf Urine Mucus (None) /hpf Urine HCG, Qual (Not Detectd) Influenza Type A (PCR) Not Detected (Not Detectd) Influenza Type B (PCR) Not Detected (Not Detectd) RSV (PCR) Not Detected (Not Detectd) SARS-CoV-2 (PCR) Not Detected (Not Detectd) 11/14/24 11/14/24 Range/Units 19:43 19:43 WBC (4.50-10.00) 10*3/uL RBC (4.10-5.20) 10*6/uL Hgb (12.0-15.0) g/dL Hct (37.2-46.3) % MCV (80.0-97.0) fL MCH (27.0-32.0) pg MCHC (32.0-37.0) g/dL Plt Count (140-440) 10*3/uL MPV (9.5-12.2) fL Immature Gran % (Auto) % Neutrophils % % Lymphocytes % % Monocytes % % Eosinophils % % Basophils % % Immature Gran # (0.00-0.04) 10*3/uL Neutrophils # (1.80-7.70) 10*3/uL Lymphocytes # (0.90-5.00) 10*3/uL Monocytes # (0.20-1.00) 10*3/uL Eosinophils # (0.04-0.35) 10*3/uL Basophils # (0.00-0.10) 10*3/uL Sodium (137-145) mmol/L Potassium (3.5-5.1) mmol/L Chloride (98-107) mmol/L Carbon Dioxide (22-30) mmol/L Anion Gap mmol/L BUN (7-17) mg/dL Creatinine (0.52-1.04) mg/dL Est GFR (CKD-EPI)AfAm (>60 ml/min/1.73 sqM) Est GFR (CKD-EPI)NonAf (>60 ml/min/1.73 sqM) Glucose (74-99) mg/dL Calcium (8.4-10.2) mg/dL Magnesium (1.6-2.3) mg/dL Total Bilirubin (0.2-1.3) mg/dL AST (14-36) U/L ALT (4-34) U/L Alkaline Phosphatase (38-126) U/L Total Protein (6.3-8.2) g/dL Albumin (3.5-5.0) g/dL Urine Color Yellow Urine Appearance Clear (Clear) Urine pH 6.5 (5.0-8.0) Ur Specific [place] 1.034 (1.001-1.035) Urine Protein Trace H (Negative) Urine Glucose (UA) Negative (Negative) Urine Ketones Negative (Negative) Urine Blood Negative (Negative) Urine Nitrite Negative (Negative) Urine Bilirubin Negative (Negative) Urine Urobilinogen 2.0 (<2.0) mg/dL Ur Leukocyte Esterase Small H (Negative) Urine RBC 2 (0-5) /hpf Urine WBC 20 H (0-5) /hpf Ur Squamous Epith Cells 2 (0-4) /hpf Urine Bacteria Rare H (None) /hpf Urine Mucus Many H (None) /hpf Urine HCG, Qual Not Detected (Not Detectd) Influenza Type A (PCR) (Not Detectd) Influenza Type B (PCR) (Not Detectd) RSV (PCR) (Not Detectd) SARS-CoV-2 (PCR) (Not Detectd) - Radiology Data Radiology results: report reviewed, image reviewed Disposition Clinical Impression: Headache, UTI (urinary tract infection), Nausea and vomiting Disposition: HOME SELF-CARE Instructions (If sedation given, give patient instructions): Urinary Tract Infection in Women (ED), Acute Headache (ED) Additional Instructions: Return to the emergency department with any new, worsening, or concerning symptoms. Take the antibiotic as prescribed for 5 days. Take the Toradol with Tylenol as needed for pain relief. If you choose to take the Toradol, do not take any other anti-inflammatories such as ibuprofen, take one or the other. Take the Zofran up to every 8 hours as needed for nausea and vomiting. You can also try taking the sumatriptan at the onset of a headache. You can repeat the dose in 2 hours if symptoms persist. Do not take more than 2 tablets in 24 hours. Follow up with your primary care provider in 1-2 days. Prescriptions: Nitrofurantoin Monohyd/M-Cryst [Macrobid] 100 mg PO Q12HR 5 Days #10 cap SUMAtriptan succinate 100 mg PO DIRECTED PRN #10 tab PRN Reason: Migraine Headache Ketorolac [Toradol] 10 mg PO Q6HR PRN #15 tab PRN Reason: Pain Ondansetron Odt [Zofran Odt] 4 mg PO Q8HR PRN #20 tab PRN Reason: Nausea And Vomiting Is patient prescribed a controlled substance at d/c from ED?: No Referrals: None,Stated [Primary Care Provider] - 1-2 days Time of Disposition: 21:03
[2024-11-14 19:57] LABS: Appearance,Urine Clear (Clear); Bacteria,Urine Rare /hpf; Bilirubin,Urine Negative (Negative); Blood,Urine Negative (Negative); Color,Urine Yellow; Glucose,Urine (UA) Negative (Negative); Ketones,Urine Negative (Negative); Leukocyte Esterase,Urine Small (Negative); Mucus,Urine Many /hpf; Nitrite,Urine Negative (Negative); PH, Urine 6.5 (5.0-8.0); Protein,Urine Trace (Negative); RBC,Urine 2 /hpf (0-5); Specific Gravity,Urine 1.034 (1.001-1.035); Squamous Epithelial Cell,Urine 2 /hpf (0-4); WBC,Urine 20 /hpf (0-5)
[2024-11-14 19:58] LABS: ALT 15 U/L (4-34); AST 16 U/L (14-36); African American GFR (CKD) >90 (>60 ml/min/1.73 sqM); Albumin 4.1 g/dL (3.5-5.0); Alkaline Phosphatase 54 U/L (38-126); Anion Gap 9 mmol/L; Blood Urea Nitrogen 10 mg/dL (7-17); Calcium 9.5 mg/dL (8.4-10.2); Carbon Dioxide 25 mmol/L (22-30); Chloride 106 mmol/L (98-107); Glucose 90 mg/dL (74-99); Non-African American GFR(CKD) >90 (>60 ml/min/1.73 sqM); Potassium 4.3 mmol/L (3.5-5.1); Sodium 140 mmol/L (137-145); Total Bilirubin 1.2 mg/dL (0.2-1.3); Total Protein 6.6 g/dL (6.3-8.2)
[2024-11-14 20:20] LABS: Influenza A Not Detected (Not Detectd); Influenza B Not Detected (Not Detectd); RSV Not Detected (Not Detectd)
--- NOTE | 2024-11-14 20:29 | CT ---
EXAMINATION TYPE: CT brain cspine wo con DATE OF EXAM: 11/14/2024 7:51 PM COMPARISON: None. CLINICAL INDICATION: Female, 29 years old with history of Headache, head injury, headache after hitti ng head, pain TECHNIQUE: CT of the brain is performed utilizing 3 mm thick sections through the posterior fossa and 3 mm thick sections through the remaining calvarium. Study is performed within 24 hours of arrival to the hospital. Contrast used: mL of , (none if empty) CT DLP: 1178.5 mGycm, Automated exposure control for dose reduction was used. FINDINGS: No abnormal hyperdensity is present to suggest an acute intracranial hemorrhage. No mass lesion is evident. No acute infarcts are evident. Ventricles and sulci are appropriate for the patient age. Paranasal sinuses and mastoid air cells within the [id number] are clear. IMPRESSIONS: 1. No acute intracranial process. Follow-up MRI can be performed as clinically indicated. CT cervical spine. COMPARISON: None TECHNIQUE: CT of the cervical spine is performed in the axial plane at 2 mm thick sections. Reconstr ucted images in the coronal, and sagittal plane are reviewed on the computer. FINDINGS: No acute fractures are evident. Vertebral body alignment is normal. Disc heights are preserved. Vertebral body heights are preserved. No spinal canal stenosis is evident. No neural foraminal stenosis is evident. Prevertebral space appears normal. Posterior spinal lamellar line is intact. IMPRESSION: 1. No acute osseous abnormality cervical spine [facility], Workstation: [facility], 11/14/2024 8:27 PM
[2024-11-14] MEDS: ONDANSETRON 4 MG/2 ML VIAL IVP STA (21:23)
[2024-11-14] MEDS: NITROFURANTOIN MONOHYD/M-CRYST 100 MG CAP PO STA (21:24)
[2024-11-14] MEDS: ONDANSETRON 4 MG ODT STARTER PACK 2 TAB BTL PO STA (21:25)
[2024-11-14 21:28] VITALS: BP 117/66; PULSE 56; RESP 19; TEMP 97.9
== END 2024-11-14 22:22 | disposition home or self-care (01) ==
LOC: EC 18:47
DX: N39.0 Urinary tract infection, site not specified (principal); R51.9 Headache, unspecified; Z87.891 Personal history of nicotine dependence
CPT/HCPCS: 36415; 80053; 83735; 85025; 81001; 81025; 87086; 87636; 72125; 70450; 99284; 96374; 96375; 96376; 96361; J1200; J0780; J1100; J2405; J1885; S0119

== ENCOUNTER 2024-11-24 16:23 | Emergency (ER) | payer BC, OTHER ==
[2024-11-24 16:40] VITALS: RESP 18; TEMP 98.9
[2024-11-24 17:15] LABS: Basophils # (A) 0.05 10*3/uL (0.00-0.10); Basophils % (A) 0.8 %; Eosinophils # (A) 0.23 10*3/uL (0.04-0.35); Eosinophils % (A) 3.5 %; HCT 39.1 % (37.2-46.3); HGB 13.5 g/dL (12.0-15.0); Lymphocytes # (A) 1.64 10*3/uL (0.90-5.00); Lymphocytes % (A) 25.2 %; MCH 29.4 pg (27.0-32.0); MCHC 34.5 g/dL (32.0-37.0); MCV 85.2 fL (80.0-97.0); Monocytes # (A) 0.75 10*3/uL (0.20-1.00); Monocytes % (A) 11.5 %; Neutrophils # (A) 3.82 10*3/uL (1.80-7.70); Neutrophils % (A) 58.7 %; Platelet Count 248 10*3/uL (140-440); RBC 4.59 10*6/uL (4.10-5.20); RDW 12.3 % (11.5-14.5); WBC 6.51 10*3/uL (4.50-10.00)
[2024-11-24] MEDS: methylPREDNISolone SOD SUCCI 125 MG/2 ML VIAL IV STA (17:17)
--- NOTE | 2024-11-24 17:22 | XR ---
EXAMINATION TYPE: XR chest 2V DATE OF EXAM: 11/24/2024 5:16 PM COMPARISON: Multiple prior chest radiograph, most recently dated 07/26/2024. CLINICAL INDICATION: Female, 29 years old with history of difficulty breathing; [facility] TECHNIQUE: XR chest 2V Frontal and lateral views of the chest. FINDINGS: Lungs/Pleura: There is no evidence of pleural effusion, focal consolidation, or pneumothorax. Pulmonary vascularity: Unremarkable. Heart/mediastinum: Cardiomediastinal silhouette is unremarkable. Musculoskeletal: No acute osseous pathology. Other findings: None IMPRESSION: No acute cardiopulmonary disease/process. [facility], , 11/24/2024 5:20 PM
[2024-11-24 17:26] LABS: INR 1.1 (<1.2); Partial Thromboplastin Time 29.2 sec (22.0-30.0); Prothrombin Time 11.7 sec (10.0-12.5)
[2024-11-24 17:28] LABS: ALT 16 U/L (4-34); AST 15 U/L (14-36); African American GFR (CKD) >90 (>60 ml/min/1.73 sqM); Albumin 4.7 g/dL (3.5-5.0); Alkaline Phosphatase 76 U/L (38-126); Anion Gap 15 mmol/L; Blood Urea Nitrogen 7 mg/dL (7-17); Calcium 9.8 mg/dL (8.4-10.2); Carbon Dioxide 16 mmol/L (22-30); Chloride 110 mmol/L (98-107); Glucose 95 mg/dL (74-99); Non-African American GFR(CKD) >90 (>60 ml/min/1.73 sqM); Potassium 3.7 mmol/L (3.5-5.1); Sodium 141 mmol/L (137-145); Total Bilirubin 2.7 mg/dL (0.2-1.3); Total Protein 7.3 g/dL (6.3-8.2)
[2024-11-24] MEDS: IPRATROPIUM-ALBUTEROL 3 ML NEB INHALATION STA ×2 (17:55→19:46)
--- NOTE | 2024-11-24 18:13 | ED ---
General Adult HPI - General Chief complaint: Shortness of Breath Stated complaint: DARION Time Seen by Provider: 11/24/24 16:43 Source: patient, RN notes reviewed Mode of arrival: ambulatory Limitations: no limitations - History of Present Illness Initial comments: 29-year-old female presents to the emergency department for evaluation of shortness of breath. Patient states that she has a history of asthma. She notes that over the past 3 days she has become increasing short of breath. She notes that this worsened significantly yesterday night. She notes it is worse with ambulation. Reports a dry cough associated with this. Denies any fever, chills, nasal congestion. She does note some tightness in her chest which she experiences with her asthma. She uses her rescue inhaler at home which has not been helping. - Related Data Home Medications Medication Instructions Recorded Confirmed Vit No.179/Iron/Folic 1 tab PO DAILY 02/09/23 06/11/24 [ Tablet] Previous Rx's Medication Instructions Recorded Albuterol Inhaler [Ventolin Hfa 2 puff INHALATION QID #8 gm 04/01/24 Inhaler] Albuterol Inhaler [Ventolin Hfa 1 - 2 puff INHALATION Q6H PRN #1 07/26/24 Inhaler] each Ketorolac [Toradol] 10 mg PO Q6HR PRN #15 tab 11/14/24 Nitrofurantoin Monohyd/M-Cryst 100 mg PO Q12HR 5 Days #10 cap 11/14/24 [Macrobid] Ondansetron Odt [Zofran Odt] 4 mg PO Q8HR PRN #20 tab 11/14/24 SUMAtriptan succinate 100 mg PO DIRECTED PRN #10 tab 11/14/24 predniSONE 50 mg PO DAILY #5 tab 11/24/24 Allergies Allergy/AdvReac Type Severity Reaction Status Date / Time No Known Allergies Allergy Verified 11/24/24 16:40 Review of Systems ROS Statement: Those systems with pertinent positive or pertinent negative responses have been documented in the HPI. ROS Other: All systems not noted in ROS Statement are negative. Past Medical History Past Medical History: Asthma Additional Past Medical History / Comment(s): ADHD, Past obstetrical history: 6 vaginal births. Bilateral salpingectomy History of Any Multi-Drug Resistant Organisms: None Reported Past Surgical History: Orthopedic Surgery, Tonsillectomy Additional Past Surgical History / Comment(s): right knee surgery, EGD Past Anesthesia/Blood Transfusion Reactions: No Reported Reaction Past Psychological History: ADD/ADHD, Anxiety, Depression Smoking Status: Former smoker Past Alcohol Use History: None Reported Past Drug Use History: Marijuana - Past Family History Mother Family Medical History: No Reported History General Exam Limitations: no limitations General appearance: alert, in no apparent distress Head exam: Present: atraumatic, normocephalic, normal inspection Eye exam: Present: normal appearance, PERRL, EOMI. Absent: scleral icterus, con junctival injection, periorbital swelling ENT exam: Present: normal exam, mucous membranes moist Neck exam: Present: normal inspection. Absent: tenderness, meningismus, lymphadenopathy Respiratory exam: Present: wheezes. Absent: respiratory distress, rales, rhonchi, stridor Cardiovascular Exam: Present: regular rate, normal rhythm, normal heart sounds. Absent: systolic murmur, diastolic murmur, rubs, gallop, clicks Extremities exam: Present: normal inspection, full ROM, normal capillary refill. Absent: tenderness, pedal edema, joint swelling, calf tenderness Back exam: Present: normal inspection Neurological exam: Present: alert, oriented X3 Psychiatric exam: Present: normal affect, normal mood Skin exam: Present: warm, dry, intact, normal color. Absent: rash Course Vital Signs 11/24/24 11/24/24 11/24/24 16:36 17:57 18:06 Temperature 98.9 F Pulse Rate 80 80 82 Respiratory 18 Rate Blood Pressure 116/75 O2 Sat by Pulse 99 Oximetry 11/24/24 11/24/24 11/24/24 19:46 19:59 20:10 Temperature Pulse Rate 87 80 105 H Respiratory 18 Rate Blood Pressure 116/71 O2 Sat by Pulse 98 Oximetry Medical Decision Making - Medical Decision Making Was pt. sent in by a medical professional or institution (, PA, BUSINESS SYSTEMS TECHNICIAN, urgent care, hospital, or [facility]...) When possible be specific @ -No Did you speak to anyone other than the patient for history (EMS, parent, family, police, friend...)? What history was obtained from this source @ -No Did you review nursing and triage notes (agree or disagree)? Why? @ -I reviewed and agree with nursing and triage notes Were old charts reviewed (outside hosp., previous admission, EMS record, old EKG, old radiological studies, urgent care reports/EKG's, [facility] records)? Report findings @ -No old charts were reviewed Differential Diagnosis (chest pain, altered mental status, abdominal pain women, abdominal pain men, vaginal bleeding, weakness, fever, dyspnea, syncope, headache, dizziness, GI bleed, back pain, seizure, CVA, palpatations, mental health, musculoskeletal)? @ -Differential Dyspnea: Coronary syndrome, arrhythmia, tamponade, asthma, COPD, pulmonary embolism, pneumonia, pneumothorax, pulmonary effusion, anaphylaxis, diabetic ketoacidosis, flailed chest, pulmonary contusion, diaphragmatic rupture, anemia, neuromuscular, this is not meant to be an all-inclusive list. EKG interpreted by me (3pts min.). @ -EKG@1746 shows sinus rhythm rate 66, MS 141, QRS 84, QT/QTc 787984 X-rays interpreted by me (1pt min.). @ -Chest x-ray reveals no acute process CT interpreted by me (1pt min.). @ -None done U/S interpreted by me (1pt. min.). @ -None done What testing was considered but not performed or refused? (CT, X-rays, U/S, labs)? Why? @ -None What meds were considered but not given or refused? Why? @ -None Did you discuss the management of the patient with other professionals (professionals i.e. , PA, BUSINESS SYSTEMS TECHNICIAN, lab, RT, psych nurse, social studies department chair, communication assistant, teacher, school services officer, immigration case worker)? Give summary @ -No Was smoking cessation discussed for >3mins.? @ -No Was critical care preformed (if so, how long)? @ -No Were there social determinants of health that impacted care today? How? (Homel essness, low income, unemployed, alcoholism, drug addiction, transportation, low edu. Level, literacy, decrease access to med. care, penitentiary, rehab)? @ -No Was there de-escalation of care discussed even if they declined (Discuss DNR or withdrawal of care, Hospice)? DNR status @ -No What co-morbidities impacted this encounter? (DM, HTN, Smoking, COPD, CAD, Cancer, CVA, ARF, Chemo, Hep., AIDS, mental health diagnosis, sleep apnea, morbid obesity)? @ -None Was patient admitted / discharged? Hospital course, mention meds given and route, prescriptions, significant lab abnormalities, going to OR and other pertinent info. @ -Discharge. Patient presented emergency department for evaluation of kianna rtness of breath. Laboratory studies were obtainedThere is no significant leukocytosis, hemoglobin 13.5; normal coagulation studies; CMP is nonactionable at this time. Negative for COVID, influenza, RSV. Chest x-ray reveals no acute process. Patient was provided steroids and breathing treatments in the emergency department. She has an improvement in her symptoms. She will be discharged home on steroids. Advised follow-up with her primary care provider. She is understanding agreeable discharge plan. Patient stable at time of discharge. Case discussed with Dr. Brown. Undiagnosed new problem with uncertain prognosis? @ -No Drug Therapy requiring intensive monitoring for toxicity (Heparin, Nitro, Insulin, Cardizem)? @ -No Were any procedures done? @ -No Diagnosis/symptom? @ -Asthma exacerbation Acute, or Chronic, or Acute on Chronic? @ -Acute] Uncomplicated (without systemic symptoms) or Complicated (systemic symptoms)? @ -Acute uncomplicated Side effects of treatment? @ -No Exacerbation, Progression, or Severe Exacerbation? @ -No Poses a threat to life or bodily function? How? (Chest pain, [place], [place], pneumonia, PE, COPD, DKA, ARF, appy, cholecystitis, CVA, Diverticulitis, Homicidal, Suicidal, threat to staff... and all critical care pts) @ -No - Lab Data Result diagrams: 11/24/24 17:02 11/24/24 17:02 Lab Results 11/24/24 11/24/24 11/24/24 Range/Units 17:02 17:02 17:02 WBC 6.51 (4.50-10.00) 10*3/uL RBC 4.59 (4.10-5.20) 10*6/uL Hgb 13.5 (12.0-15.0) g/dL Hct 39.1 (37.2-46.3) % MCV 85.2 (80.0-97.0) fL MCH 29.4 (27.0-32.0) pg MCHC 34.5 (32.0-37.0) g/dL Plt Count 248 (140-440) 10*3/uL MPV 10.0 (9.5-12.2) fL Immature Gran % (Auto) 0.3 % Neutrophils % 58.7 % Lymphocytes % 25.2 % Monocytes % 11.5 % Eosinophils % 3.5 % Basophils % 0.8 % Immature Gran # 0.02 (0.00-0.04) 10*3/uL Neutrophils # 3.82 (1.80-7.70) 10*3/uL Lymphocytes # 1.64 (0.90-5.00) 10*3/uL Monocytes # 0.75 (0.20-1.00) 10*3/uL Eosinophils # 0.23 (0.04-0.35) 10*3/uL Basophils # 0.05 (0.00-0.10) 10*3/uL PT 11.7 (10.0-12.5) sec INR 1.1 (<1.2) APTT 29.2 (22.0-30.0) sec Sodium 141 (137-145) mmol/L Potassium 3.7 (3.5-5.1) mmol/L Chloride 110 H (98-107) mmol/L Carbon Dioxide 16 L (22-30) mmol/L Anion Gap 15 mmol/L BUN 7 (7-17) mg/dL Creatinine 0.77 (0.52-1.04) mg/dL Est GFR (CKD-EPI)AfAm >90 (>60 ml/min/1.73 sqM) Est GFR (CKD-EPI)NonAf >90 (>60 ml/min/1.73 sqM) Glucose 95 (74-99) mg/dL Calcium 9.8 (8.4-10.2) mg/dL Total Bilirubin 2.7 H (0.2-1.3) mg/dL AST 15 (14-36) U/L ALT 16 (4-34) U/L Alkaline Phosphatase 76 (38-126) U/L Total Protein 7.3 (6.3-8.2) g/dL Albumin 4.7 (3.5-5.0) g/dL Influenza Type A (PCR) (Not Detectd) Influenza Type B (PCR) (Not Detectd) RSV (PCR) (Not Detectd) SARS-CoV-2 (PCR) (Not Detectd) 05/16/25 Range/Units 17:41 WBC (4.50-10.00) 10*3/uL RBC (4.10-5.20) 10*6/uL Hgb (12.0-15.0) g/dL Hct (37.2-46.3) % MCV (80.0-97.0) fL MCH (27.0-32.0) pg MCHC (32.0-37.0) g/dL Plt Count (140-440) 10*3/uL MPV (9.5-12.2) fL Immature Gran % (Auto) % Neutrophils % % Lymphocytes % % Monocytes % % Eosinophils % % Basophils % % Immature Gran # (0.00-0.04) 10*3/uL Neutrophils # (1.80-7.70) 10*3/uL Lymphocytes # (0.90-5.00) 10*3/uL Monocytes # (0.20-1.00) 10*3/uL Eosinophils # (0.04-0.35) 10*3/uL Basophils # (0.00-0.10) 10*3/uL PT (10.0-12.5) sec INR (<1.2) APTT (22.0-30.0) sec Sodium (137-145) mmol/L Potassium (3.5-5.1) mmol/L Chloride (98-107) mmol/L Carbon Dioxide (22-30) mmol/L Anion Gap mmol/L BUN (7-17) mg/dL Creatinine (0.52-1.04) mg/dL Est GFR (CKD-EPI)AfAm (>60 ml/min/1.73 sqM) Est GFR (CKD-EPI)NonAf (>60 ml/min/1.73 sqM) Glucose (74-99) mg/dL Calcium (8.4-10.2) mg/dL Total Bilirubin (0.2-1.3) mg/dL AST (14-36) U/L ALT (4-34) U/L Alkaline Phosphatase (38-126) U/L Total Protein (6.3-8.2) g/dL Albumin (3.5-5.0) g/dL Influenza Type A (PCR) Not Detected (Not Detectd) Influenza Type B (PCR) Not Detected (Not Detectd) RSV (PCR) Not Detected (Not Detectd) SARS-CoV-2 (PCR) Not Detected (Not Detectd) Disposition Clinical Impression: Asthma exacerbation Disposition: HOME SELF-CARE Condition: Stable Instructions (If sedation given, give patient instructions): Asthma (ED) Additional Instructions: Please follow up with your doctor. Return to the emergency department for new or worsening symptoms. Prescriptions: predniSONE 50 mg PO DAILY #5 tab Is patient prescribed a controlled substance at d/c from ED?: No Referrals: None,Stated [Primary Care Provider] - 1-2 days
[2024-11-24 18:22] LABS: Influenza A Not Detected (Not Detectd); Influenza B Not Detected (Not Detectd); RSV Not Detected (Not Detectd)
[2024-11-24 20:11] VITALS: BP 116/71; PULSE 105
== END 2024-11-24 20:10 | disposition home or self-care (01) ==
LOC: EC 16:23
DX: J45.901 Unspecified asthma with (acute) exacerbation (principal); Z87.891 Personal history of nicotine dependence
CPT/HCPCS: 96374; 99285; 36415; 94640 ×2; 93005; 80053; 85025; 85610; 85730; 87636; 71046; J2919